=== PATIENT | male | born 1945 | race Caucasian/White ===

== ENCOUNTER 2016-10-15 22:46 | Inpatient (IN) | payer MEDICARE ==
[2016-10-15 23:24] LABS: Basophils % (A) 1 %; CH 33.4; CHCM 33.5; Eosinophils # (A) 0.3 k/uL (0-0.7); Eosinophils % (A) 6 %; HCT 43.9 % (39.0-53.0); HDW 2.32; HGB 14.8 gm/dL (13.0-17.5); Luc # (Auto) 0.11; Luc % (Auto) 2; Lymphocytes # (A) 1.4 k/uL (1.0-4.8); Lymphocytes % (A) 24 %; MCHC 33.8 g/dL (31.0-37.0); MCV 100.4 fL (80.0-100.0); Mean Platelet Volume 7.5; Monocytes # (A) 0.3 k/uL (0-1.0); Monocytes % (A) 6 %; Neutrophils # (A) 3.5 k/uL (1.3-7.7); Neutrophils % (A) 62 %; RBC 4.37 m/uL (4.30-5.90); RDW 13.2 % (11.5-15.5); WBC 5.7 k/uL (3.8-10.6); WBC (Perox) 6.28
[2016-10-15] MEDS ORDERED: DILTIAZEM 125 MG in SODIUM CHLORIDE 0.9% 100 ML IV ONE (23:29)
[2016-10-15 23:32] LABS: ALT 33 U/L (21-72); AST 25 U/L (17-59); Alkaline Phosphatase 66 U/L (38-126); Anion Gap 11 mmol/L; Blood Urea Nitrogen 21 mg/dL (9-20); Carbon Dioxide 27 mmol/L (22-30); Chloride 109 mmol/L (98-107); Glucose 133 mg/dL (74-99); Magnesium 1.8 mg/dL (1.6-2.3); Non-African American GFR(MDRD) 54 (>60 ml/min/1.73 sqM); Potassium 3.9 mmol/L (3.5-5.1); Sodium 147 mmol/L (137-145); Total Bilirubin 0.4 mg/dL (0.2-1.3); Total Protein 6.1 g/dL (6.3-8.2)
--- NOTE | 2016-10-15 23:32 | ED ---
Arrhythmia/Palpitations HPI - General Chief Complaint: Chest Pain Stated Complaint: Constant Belching Time Seen by Provider: 10/15/16 23:03 Source: patient, family Mode of arrival: ambulatory Limitations: no limitations - History of Present Illness Initial Comments: This patient is 71-year-old man who presents to be evaluated for racing heartbeat that came on around 10 PM while he was trying to sleep. The patient states that he noticed that his heart started beating rapidly and he felt like he had belch. He took some soda water which did not change things. When the symptoms persisted he came here to be evaluated. The patient states that he has previous history of atrial fibrillation and this feels very similar. Patient denies yogesh chest pain, diaphoresis, dyspnea, nausea or vomiting. MD Complaint: rapid heart beat Onset/Timin -: minutes(s) Context: occurred during rest Arrhythmia History: atrial fibrillation Associated Symptoms: shortness of breath, other (belching) - Related Data Home Medications Medication Instructions Recorded Confirmed Aloe Vera 5,000 mg PO DAILY 07/21/15 10/15/16 Cholecalciferol [Vitamin D3] 1,000 unit PO DAILY 07/21/15 10/15/16 Flaxseed [Flaxseed Oil] 1,000 mg PO DAILY 07/21/15 10/15/16 Multivitamins, Thera [Multivitamin 1 tab PO DAILY 07/21/15 10/15/16 (formulary)] Decherd-3 Fatty Acids/Fish Oil [Fish 1 cap PO DAILY 07/21/15 10/15/16 Oil 1,000 mg Softgel] Simvastatin 10 mg PO HS 07/21/15 10/15/16 Ubidecarenone [Co Q-10] 100 mg PO DAILY 07/21/15 10/15/16 Previous Rx's Medication Instructions Recorded Apixaban [Eliquis] 5 mg PO BID #0 10/17/16 Atenolol [Tenormin] 50 mg PO HS #0 10/17/16 Allergies Allergy/AdvReac Type Severity Reaction Status Date / Time No Known Allergies Allergy Verified 10/15/16 23:26 Review of Systems ROS Statement: Those systems with pertinent positive or pertinent negative responses have been documented in the HPI. ROS Other: All systems not noted in ROS Statement are negative. Constitutional: Denies: fever, chills, weakness Respiratory: Reports: dyspnea. Denies: cough, wheezes, hemoptysis Cardiovascular: Reports: palpitations. Denies: chest pain, orthopnea, edema, syncope Gastrointestinal: Denies: abdominal pain, nausea, vomiting Genitourinary: Denies: dysuria, hematuria Musculoskeletal: Denies: back pain Skin: Denies: rash Neurological: Denies: headache, weakness, numbness Past Medical History Past Medical History: Atrial Fibrillation, Hyperlipidemia, Hypertension, Osteoarthritis (OA), Skin Disorder Additional Past Medical History / Comment(s): precancerous skin areas removed History of Any Multi-Drug Resistant Organisms: None Reported Past Surgical History: Hernia Repair, Tonsillectomy Additional Past Surgical History / Comment(s): lt nephrectomy r/t noncancerous tumor, cataracts Past Anesthesia/Blood Transfusion Reactions: No Reported Reaction Past Psychological History: No Psychological Hx Reported Smoking Status: Never smoker Past Alcohol Use History: Occasional Past Drug Use History: None Reported - Past Family History Mother Additional Family Medical History / Comment(s): lupus Father Additional Family Medical History / Comment(s): heart problems Daughter(s) Family Medical History: Cancer Additional Family Medical History / Comment(s): lymphoma General Exam Limitations: no limitations General appearance: alert, in no apparent distress Head exam: Present: atraumatic, normocephalic Eye exam: Present: normal appearance. Absent: scleral icterus, conjunctival injection Respiratory exam: Present: normal lung sounds bilaterally. Absent: respiratory distress, wheezes, rales, rhonchi, stridor Cardiovascular Exam: Present: tachycardia, irregular rhythm, normal heart sounds. Absent: systolic murmur, diastolic murmur, rubs, gallop GI/Abdominal exam: Present: soft. Absent: distended, tenderness, guarding, rebound, rigid, mass Extremities exam: Present: normal inspection, normal capillary refill. Absent: pedal edema, calf tenderness Back exam: Present: normal inspection. Absent: CVA tenderness (R), CVA tenderness (L) Neurological exam: Present: alert Skin exam: Present: warm, dry, intact, normal color. Absent: rash Course Vital Signs 10/15/16 10/15/16 10/16/16 22:55 23:19 00:00 Temperature 97.7 F Pulse Rate 110 H Pulse Rate [ 122 H Dental Service Technician ] Respiratory 20 Rate Blood Pressure 149/95 99/64 O2 Sat by Pulse 97 Oximetry 10/16/16 00:25 Temperature Pulse Rate Pulse Rate [ Dental Service Technician ] Respiratory Rate Blood Pressure O2 Sat by Pulse 97 Oximetry EKG Findings - EKG Comments: EKG Findings:: Possible old anterior infarct. - EKG Results: EKG: interpreted by ERMD, normal axis EKG shows: tachycardia (Rate approximately 132 bpm), atrial fibrillation - Blocks, [place], Hypertrophy, ST Abn: Repolarization changes or abnormalities: ST suggestive of injury (There may be mild ST depression and T inversion laterally suggestive of possible ischemia.) Medical Decision Making - Lab Data Result diagrams: 10/15/16 23:13 10/17/16 07:21 Lab Results 10/15/16 10/15/16 10/15/16 Range/Units 23:13 23:13 23:13 WBC 5.7 (3.8-10.6) k/uL RBC 4.37 (4.30-5.90) m/uL Hgb 14.8 (13.0-17.5) gm/dL Hct 43.9 (39.0-53.0) % MCV 100.4 H (80.0-100.0) fL MCH 34.0 (25.0-35.0) pg MCHC 33.8 (31.0-37.0) g/dL RDW 13.2 (11.5-15.5) % Plt Count 194 (150-450) k/uL Neutrophils % 62 % Lymphocytes % 24 % Monocytes % 6 % Eosinophils % 6 % Basophils % 1 % Neutrophils # 3.5 (1.3-7.7) k/uL Lymphocytes # 1.4 (1.0-4.8) k/uL Monocytes # 0.3 (0-1.0) k/uL Eosinophils # 0.3 (0-0.7) k/uL Basophils # 0.0 (0-0.2) k/uL PT (9.0-12.0) sec INR (<1.1) APTT (22.0-30.0) sec D-Dimer (<0.60) mg/L FEU Sodium 147 H (137-145) mmol/L Potassium 3.9 (3.5-5.1) mmol/L Chloride 109 H (98-107) mmol/L Carbon Dioxide 27 (22-30) mmol/L Anion Gap 11 mmol/L BUN 21 H (9-20) mg/dL Creatinine 1.30 H (0.66-1.25) mg/dL Est GFR (MDRD) Af Amer >60 (>60 ml/min/1.73 sqM) Est GFR (MDRD) Non-Af 54 (>60 ml/min/1.73 sqM) Glucose 133 H (74-99) mg/dL Calcium 9.0 (8.4-10.2) mg/dL Magnesium 1.8 (1.6-2.3) mg/dL Total Bilirubin 0.4 (0.2-1.3) mg/dL AST 25 (17-59) U/L ALT 33 (21-72) U/L Alkaline Phosphatase 66 (38-126) U/L Total Creatine Kinase 56 (55-170) U/L CK-MB (CK-2) 1.9 (0.0-2.4) ng/mL CK-MB (CK-2) Rel Index 3.4 Troponin I <0.012 (0.000-0.034) ng/mL NT-Pro-B Natriuret Pep pg/mL Total Protein 6.1 L (6.3-8.2) g/dL Albumin 3.8 (3.5-5.0) g/dL 10/15/16 10/15/16 Range/Units 23:13 23:13 WBC (3.8-10.6) k/uL RBC (4.30-5.90) m/uL Hgb (13.0-17.5) gm/dL Hct (39.0-53.0) % MCV (80.0-100.0) fL MCH (25.0-35.0) pg MCHC (31.0-37.0) g/dL RDW (11.5-15.5) % Plt Count (150-450) k/uL Neutrophils % % Lymphocytes % % Monocytes % % Eosinophils % % Basophils % % Neutrophils # (1.3-7.7) k/uL Lymphocytes # (1.0-4.8) k/uL Monocytes # (0-1.0) k/uL Eosinophils # (0-0.7) k/uL Basophils # (0-0.2) k/uL PT 10.0 (9.0-12.0) sec INR 1.0 (<1.1) APTT 23.5 (22.0-30.0) sec D-Dimer 0.53 (<0.60) mg/L FEU Sodium (137-145) mmol/L Potassium (3.5-5.1) mmol/L Chloride (98-107) mmol/L Carbon Dioxide (22-30) mmol/L Anion Gap mmol/L BUN (9-20) mg/dL Creatinine (0.66-1.25) mg/dL Est GFR (MDRD) Af Amer (>60 ml/min/1.73 sqM) Est GFR (MDRD) Non-Af (>60 ml/min/1.73 sqM) Glucose (74-99) mg/dL Calcium (8.4-10.2) mg/dL Magnesium (1.6-2.3) mg/dL Total Bilirubin (0.2-1.3) mg/dL AST (17-59) U/L ALT (21-72) U/L Alkaline Phosphatase (38-126) U/L Total Creatine Kinase (55-170) U/L CK-MB (CK-2) (0.0-2.4) ng/mL CK-MB (CK-2) Rel Index Troponin I (0.000-0.034) ng/mL NT-Pro-B Natriuret Pep 474 pg/mL Total Protein (6.3-8.2) g/dL Albumin (3.5-5.0) g/dL Critical Care Time Critical Care Time: Yes (35 minutes) Disposition Clinical Impression: Atrial fibrillation with RVR Disposition: ADMITTED IP TO THIS HOSP Condition: Fair
[2016-10-15 23:37] LABS: Partial Thromboplastin Time 23.5 sec (22.0-30.0)
--- NOTE | 2016-10-15 23:39 | XR ---
EXAM: XR Chest, 1 View CLINICAL HISTORY: Reason: chest pain TECHNIQUE: Frontal view of the chest. COMPARISON: No relevant prior studies available. FINDINGS: Lungs: Unremarkable. No consolidation. Pleural space: Unremarkable. No pneumothorax. Heart: Unremarkable. No cardiomegaly. Mediastinum: Unremarkable. Bones/joints: No acute osseous abnormality. Vasculature: Tortuosity and/or ectasia of the thoracic aorta. IMPRESSION: No acute cardiopulmonary process.
[2016-10-15 23:42] LABS: Creatine Kinase 56 U/L (55-170)
[2016-10-15 23:55] LABS: Creatine Kinase MB 1.9 ng/mL (0.0-2.4); Troponin I <0.012 ng/mL (0.000-0.034)
[2016-10-16] MEDS ORDERED: NITROGLYCERIN SL TABS 0.4 MG TAB SUBLINGUAL PRN (00:24)
[2016-10-16 00:59] VITALS: BMI 27.6
[2016-10-16] MEDS: SODIUM CHLORIDE 0.9% 1,000 ML IV SCH ×2 (06:16→16:09)
[2016-10-16 06:39] LABS: Creatine Kinase MB 1.4 ng/mL (0.0-2.4); Troponin I 0.02 ng/mL (0.000-0.034)
[2016-10-16] MEDS ORDERED: NON-FORMULARY DRUG (Ubidecarenone [Co Q-10] 100 MG) PO SCH (09:00)
[2016-10-16] MEDS ORDERED: NON-FORMULARY DRUG (Omega-3 Fatty Acids/Fish Oil [Fish Oil 1,000 Mg Softgel] 1 CAP) PO SCH (09:00)
[2016-10-16] MEDS: MULTIVITAMINS, THERA 1 EACH TAB PO SCH (09:17)
[2016-10-16] MEDS: CHOLECALCIFEROL 1,000 UNIT TAB PO SCH (09:17)
--- NOTE | 2016-10-16 11:33 | CONS ---
DATE OF CONSULTATION: Landen Ceballos is a 71- year-old male patient who started to notice that his heart was beating rapidly yesterday and he felt as if he was going to bel. He tried to drink soda, but it did not help him. He denied any chest discomfort, dizziness, lightheadedness, shortness of breath. His heart was still racing and therefore he came to the hospital. In the hospital, his first 12-lead ECG shows an atrial tachycardia rather than atrial fibrillation with RVR. This has positive P waves in V1 and negative in lead II. This morning, his 12-lead ECG shows a more disorganized rhythm with atrial fibrillation. He is currently on IV Cardizem drip 5 ( ) an hour, his rates are controlled. He normally takes 25 mg of atenolol everyday, I am increasing it to 50 mg a day today. He has past history of hypertension, he is on Zestril; dyslipidemia, he is on simvastatin and a past history of possibly atrial fibrillation with which he is on Eliquis. He takes only 5 mg once daily. He also has one kidney. His GFR is in the mid 50s. He has had a nephrectomy for noncancerous tumor. SOCIAL HISTORY: He is a never smoker. REVIEW OF SYSTEMS: No fever, chills or rigors. No cough or expectoration. No nausea, vomiting, or diarrhea. No hematuria or dysuria. No strokes or seizures. No skin lesions. No musculoskeletal complaints ALLERGIES: No known drug allergies. On examination, his blood pressure is 120/88 mmHg, heart rate is in the 60s and 70s, irregular, afebrile, 97.1 degrees Fahrenheit. Head and neck examination is normal. No JVD, thyromegaly, or carotid bruits. Heart sounds S1, S2 are normal, but irregular. There is no murmur, no gallops. Abdomen is soft, nontender. Breath sounds are clear. No rhonchi. No crackles. Extremities are warm. IMPRESSION: 1. Atrial tachycardia with upright atrial electrograms in V1 and negative in lead II. 2. Atrial tachycardia degenerated into atrial fibrillation today. 3. Hypertension, on Zestril. 4. Dyslipidemia, on simvastatin. SUGGEST: Increase atenolol to 50 mg p.o. daily, increase Eliquis to 5 mg twice daily. He has had a history of nephrectomy. His GFR is in the mid 50s. I have asked him to increase Eliquis to 5 mg p.o. b.i.d. I did discuss medical treatment versus radiofrequency ablation with him. I will rate control him and continue anticoagulation. I would like to observe him overnight until tomorrow to make sure that he is tolerating 50 mg of atenolol with adequate rate control before we discharge him. He is leaving town on Tuesday to go to his grandson's graduation. I will see him again in the office and I will schedule his outpatient appointment.
[2016-10-16 12:25] LABS: Creatine Kinase MB 1.2 ng/mL (0.0-2.4); Troponin I 0.018 ng/mL (0.000-0.034)
[2016-10-16] MEDS: ATENOLOL 50 MG TAB PO SCH (12:30)
--- NOTE | 2016-10-16 20:32 | HP ---
Patient is a 71-year-old who came in because of symptoms of dizziness, lightheadedness, found to be in atrial fibrillation. Patient was subsequently admitted here. Patient has known history of A. fib. with RVR. Patient was on atenolol. Patient was started on Cardizem drip, which was discontinued. Patient is on beta lamont, the dose of which is being increased. Patient's baseline creatinine is unknown, but his creatinine is elevated to 1.3. Patient denied any fevers, chills. Patient denied any nausea, vomiting, diarrhea. I am unable to find any precipitating factors for his atrial fibrillation. Anyway, Cardiology evaluated the patient. I do not know his ejection fraction. Home medications include: 1. Levaquin. 2. Simvastatin. 3. Multivitamin. 4. Lisinopril. 5. Cholecalciferol. 6. Atenolol 25 p.o. bedtime, which is being increased to twice a day. 7. Apixaban 5 mg p.o. bedtime, which is being increased to 5 mg p.o. b.i.d. and 8. Aloe vera. PAST MEDICAL HISTORY: Significant for atrial fibrillation, hypertension, hyperlipidemia, osteoarthritis, hernia repair, tonsillectomy. SOCIAL HISTORY: Denied any smoking, alcohol abuse or any drug abuse. FAMILY HISTORY: Significant for cancer and lymphoma. PHYSICAL EXAMINATION: VITAL SIGNS: Temperature 97.0, pulse of 61, blood pressure is 115/79, saturating at 97% on room air. GENERAL: The patient is alert and oriented x3, not in any acute distress. Well developed, well nourished. HEENT: Pupils are round and equally reacting to light. EOMI. No scleral icterus. No conjunctival pallor. Normocephalic, atraumatic. No pharyngeal erythema. No thyromegaly. CARDIOVASCULAR: S1 and S2 present. No murmurs, rubs, or gallops. PULMONARY: Chest is clear to auscultation, no wheezing or crackles. ABDOMEN: Soft, nontender, nondistended, normoactive bowel sounds. No palpable organomegaly. MUSCULOSKELETAL: No joint swelling or deformity. EXTREMITIES: No cyanosis, clubbing, or pedal edema. NEUROLOGICAL: Gross neurological examination did not reveal any focal deficits. SKIN: No rashes. LABORATORY DATA: CBC, CMP are abnormal for elevated sodium of 147 secondary to IV fluids, BUN of 21, creatinine of 1.3. ASSESSMENT AND PLAN: 1. Atrial fibrillation with rapid ventricular rate. Patient is in sinus rhythm at this point of time. Continue with increased dose of atenolol and Cardiology is recommending monitoring overnight and Eliquis dose was increased to 5 mg p.o. b.i.d. Atenolol is increased to 50 mg p.o. daily. 2. Hypertension on Zestril. As atenolol dose was increased and I am not sure whether patient has acute renal failure or not, because of that reason, I am discontinuing lisinopril and will watch him and patient is not really diabetic. 3. Possible chronic kidney disease stage 2 to 3 from hypertensive nephrosclerosis. Will hold off on Zestril and see if it improves. 4. Dyslipidemia. 5. Osteoarthritis. 6. For above-mentioned chronic medical problems, I will go ahead and continue his home medications.
[2016-10-16] MEDS ORDERED: ATENOLOL 25 MG TAB PO SCH (21:00)
[2016-10-16] MEDS ORDERED: LISINOPRIL 10 MG TAB PO SCH (21:00)
[2016-10-16] MEDS ORDERED: ATORVASTATIN 10 MG TAB PO SCH (21:00)
[2016-10-16] MEDS ORDERED: APIXABAN 5 MG TAB PO SCH (21:00)
[2016-10-16] MEDS: APIXABAN 5 MG TAB PO SCH (21:45)
[2016-10-17 07:51] LABS: Anion Gap 8 mmol/L; Blood Urea Nitrogen 20 mg/dL (9-20); Calcium 9.1 mg/dL (8.4-10.2); Carbon Dioxide 23 mmol/L (22-30); Chloride 112 mmol/L (98-107); Cholesterol 148 mg/dL (<200); Glucose 90 mg/dL (74-99); HDL Cholesterol 53 mg/dL (40-60); Non-African American GFR(MDRD) >60 (>60 ml/min/1.73 sqM); Potassium 4.3 mmol/L (3.5-5.1); Sodium 143 mmol/L (137-145); Triglycerides 87 mg/dL (<150)
[2016-10-17] MEDS: APIXABAN 5 MG TAB PO SCH (08:56)
[2016-10-17] MEDS: ATENOLOL 50 MG TAB PO SCH (08:56)
[2016-10-17] MEDS: MULTIVITAMINS, THERA 1 EACH TAB PO SCH (08:56)
[2016-10-17] MEDS: CHOLECALCIFEROL 1,000 UNIT TAB PO SCH (08:56)
[2016-10-17] MEDS ORDERED: ASPIRIN 325 MG TAB PO SCH (09:00)
[2016-10-17 09:08] VITALS: RESP 18
--- NOTE | 2016-10-17 11:34 | PN ---
He is doing well from a cardiac standpoint. He converted to sinus rhythm; however, during the conversion, he first had AIVR and then converted to ( ). He did not complain of any syncope. Vital signs stable today. He is afebrile 97.5 degrees Fahrenheit. Pulse rate in the 60s, irregular, is in sinus rhythm. Blood pressure 130/83 mmHg. Head and neck examination is normal. Heart sounds S1, S2 are normal. LUNGS: Clear to auscultation. EXTREMITIES: Warm. No edema. IMPRESSION: 1. Atrial tachycardia. 2. Atrial fibrillation. 3. Hypertension. 4. Dyslipidemia. 5. AIVR at the time of conversion. No evidence of sick sinus syndrome thereafter. SUGGEST: He may go home today. Eliquis 5 mg twice daily and atenolol 50 daily. I will see him in the outpatient.
[2016-10-17 12:04] VITALS: BP 142/87; PULSE 56; TEMP 96.9
--- NOTE | 2016-10-18 13:53 | DS ---
DATE OF ADMISSION: 10/16/2016 DATE OF DISCHARGE: 10/17/2016 Patient is a 71-year-old admitted and was treated for atrial fibrillation with rapid ventricular rate, beta lamont dose was increased and other antihypertensives were discontinued and patient is being discharged today in stable medical condition to home. Patient's Eliquis was changed to 5 b.i.d. The patient was seen and examined on the day of discharge. Vital signs are stable. PHYSICAL EXAMINATION: GENERAL: The patient is alert and oriented x3, not in any acute distress. Well developed, well nourished. HEENT: Pupils are round and equally reacting to light. EOMI. No scleral icterus. No conjunctival pallor. Normocephalic, atraumatic. No pharyngeal erythema. No thyromegaly. CARDIOVASCULAR: S1 and S2 present. No murmurs, rubs, or gallops. PULMONARY: Chest is clear to auscultation, no wheezing or crackles. ABDOMEN: Soft, nontender, nondistended, normoactive bowel sounds. No palpable organomegaly. MUSCULOSKELETAL: No joint swelling or deformity. EXTREMITIES: No cyanosis, clubbing, or pedal edema. NEUROLOGICAL: Gross neurological examination did not reveal any focal deficits. SKIN: No rashes. FINAL DIAGNOSIS(ES): 1. Atrial fibrillation, presently rate -controlled. 2. Hypertension was on Zestril. Atenolol dose is being increased, Zestril was discontinued and patient was also close to hypotensive and had renal dysfunction which is acute kidney injury 3. Prerenal azotemia possibly due to the Zestril, which was discontinued. 4. The patient has improvement in creatinine and patient may have some chronic kidney disease stage II, probably her chronic kidney disease stage II from hypertension. 5. Dyslipidemia. 6. Osteoarthritis. Patient being discharged today. Please refer to my depart summary for further details of discharge medication. Patient will follow with Dr. Ted Alba in 3 to 7 days. Cardiology as scheduled. Activity as tolerated. Cardiac diet. Spent greater than 35 minutes in total discharge process.
== END 2016-10-17 15:30 | disposition home or self-care (01) | DRG 309 ==
LOC: EC 22:46 → 6SEL 10-16 00:25
PROVIDERS: ADMIT Internal Medicine; ATTEND Internal Medicine
DX: I48.91 Unspecified atrial fibrillation (principal); N17.9 Acute kidney failure, unspecified; E78.5 Hyperlipidemia, unspecified; I47.1 Supraventricular tachycardia; M19.90 Unspecified osteoarthritis, unspecified site; Z79.01 Long term (current) use of anticoagulants; Z79.899 Other long term (current) drug therapy; Z90.5 Acquired absence of kidney; I12.9 Hypertensive chronic kidney disease with stage 1 through stage 4 chronic kidney disease, or unspecified chronic kidney disease; N18.2 Chronic kidney disease, stage 2 (mild)
CPT/HCPCS: 36415; 71010; 80048; 80053; 80061; 82550; 82553; 83735; 83880; 84443; 84484; 85025; 85379; 85610; 85730; 93005; 96365; 99285

== ENCOUNTER → 2017-01-13 | Outpatient (CLI) | payer MEDICARE ==
--- NOTE | 2017-01-14 09:23 | CONS ---
DATE OF SERVICE: 01/13/2017 A 71-year-old gentleman who has been evaluated to [facility] for possible obstructive sleep apnea-hypopnea syndrome. HISTORY OF PRESENT ILLNESS/SLEEP WAKE EVALUATION: SLEEP SCHEDULE: Patients usual sleep schedule from around 10:00 p.m. to 5:30 or 6:30 a.m. FALLING ASLEEP: He does not have any problem with falling asleep. No TV in bedroom. DURING SLEEP: He sleeps usually on the back position. He sleeps with his and according to her he snores and has episodes of stopped breathing and snorting during the sleep. He wakes up from sleep two times without nocturia. DURING THE DAY/WAKE STATE: During the day he may feel sleepiness and irritability. [place] sleepiness scale is 5. He may take one nap in the evening time. PAST MEDICAL HISTORY: Positive for atrial fibrillation, hypertension, hyperlipidemia. PAST SURGICAL HISTORY: Left kidney removed for benign tumor, status post left shoulder surgery for rotator cuff. MEDICATIONS: Simvastatin, metoprolol, lisinopril, Eliquis. SOCIAL HISTORY: Negative for smoking. Alcohol consumption occasional. REVIEW OF SYSTEMS: Sometimes awakenings from sleep. No fevers No double vision. No recent chest pain. No shortness of breath. No abdominal pain. No bleeding episodes. No blood in urine. No seizure episodes. FAMILY HISTORY: Hypertension, heart problems, strokes, snoring, acid reflux. PHYSICAL EXAMINATION: GENERAL: A gentleman without any distress. VITAL SIGNS: BP 116/71, HR 64, RR 16, height 5 foot 10, weight 205, body mass index 29.4, neck 15-3/4 inches in circumference, temperature 98.1, oxygen saturation on room air 98%. HEENT: PERRLA, EOMI. Evaluation of oropharynx showed moderate low position of soft palate. Short distance between soft palate and posterior pharyngeal wall. NECK: Supple. No JVD. Thyroid is not palpable. LUNGS: clear to percussion and to auscultation. Good air exchange. No wheezing or rhonchi. HEART: S1, S2 regular. No murmurs, gallops or rubs. ABDOMEN: Soft and nontender. Bowel sounds are present. No organomegaly appreciated. EXTREMITIES: No cyanosis or clubbing. 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 Cranial nerves II through VII intact. There is no fasciculation or atrophy noted. No focal deficits observed. IMPRESSION: 1. Snoring, witnessed episodes of stopped breathing during the sleep, moderately low position of soft palate, short distance between soft palate and posterior pharyngeal wall, obstructive sleep apnea-hypopnea syndrome. 2. History of atrial fibrillation. 3. Hypertension. 4. Hyperlipidemia. 5. Status post left nephrectomy for benign tumor. 6. Status post left shoulder surgery. PLAN: 1. Polysomnography for evaluation of patients breathing during sleep. 2. CPAP/BiPAP titration if sleep study confirms obstructive sleep apnea- hypopnea syndrome. 3. Preferable position during sleep on the side. 4. No driving if patient feels any sleepiness. Patient is aware of civil and criminal liability for unsafe driving. 5. I will see the patient for follow-up visit to explain results of the testing and following plan. Thank you very much for allowing me to participate in the management of your patient. Sincerely, Iker Lo MD, PhD, FAASM Diplomat of [place] [employer], Sleep Medicine Board by [place] [employer] [place] [employer] Advertising Designer of [facility]
== END ==
LOC: SLEEP 15:12
PROVIDERS: ATTEND Internal Medicine
DX: G47.33 Obstructive sleep apnea (adult) (pediatric) (principal); I10 Essential (primary) hypertension; I48.91 Unspecified atrial fibrillation; E78.5 Hyperlipidemia, unspecified; Z98.890 Other specified postprocedural states; Z90.5 Acquired absence of kidney; Z79.899 Other long term (current) drug therapy
CPT/HCPCS: 99211

== ENCOUNTER 2017-02-21 06:06 | Day surgery (SDC) | payer MEDICARE ==
[2017-02-17 12:33] VITALS: BMI 27.8
[2017-02-21] MEDS ORDERED: ONDANSETRON 4 MG/2 ML VIAL IVP ONE (06:08)
[2017-02-21] MEDS ORDERED: MIDAZOLAM 2 MG/2 ML VIAL IV PRN (06:08)
[2017-02-21] MEDS ORDERED: HYDROmorphone 0.5 MG/0.5 ML SYRINGE IVP PRN (06:08)
[2017-02-21] MEDS: SODIUM CHLORIDE 0.9% 1,000 ML IV SCH (06:35)
[2017-02-21 07:22] LABS: Basophils % (A) 1 %; CH 32.7; CHCM 32.9; Eosinophils # (A) 0.2 k/uL (0-0.7); Eosinophils % (A) 3 %; HCT 45.5 % (39.0-53.0); HDW 2.33; HGB 15.3 gm/dL (13.0-17.5); Luc # (Auto) 0.14; Luc % (Auto) 2; Lymphocytes # (A) 1.3 k/uL (1.0-4.8); Lymphocytes % (A) 22 %; MCH 33.6 pg (25.0-35.0); MCHC 33.7 g/dL (31.0-37.0); MCV 99.8 fL (80.0-100.0); Mean Platelet Volume 7.8; Monocytes # (A) 0.5 k/uL (0-1.0); Monocytes % (A) 8 %; Neutrophils % (A) 65 %; RBC 4.56 m/uL (4.30-5.90); RDW 12.8 % (11.5-15.5); WBC 6.1 k/uL (3.8-10.6); WBC (Perox) 5.99
[2017-02-21 07:31] LABS: Anion Gap 11 mmol/L; Blood Urea Nitrogen 23 mg/dL (9-20); Carbon Dioxide 21 mmol/L (22-30); Chloride 112 mmol/L (98-107); Glucose 94 mg/dL (74-99); Non-African American GFR(MDRD) 50 (>60 ml/min/1.73 sqM); Sodium 144 mmol/L (137-145)
[2017-02-21] MEDS ORDERED: DEXAMETHASONE SOD PHOS (MDV) 100 MG/10 ML VIAL ONE (07:31)
[2017-02-21] MEDS ORDERED: HEPARIN SODIUM,PORCINE 10,000 UNIT/ML 1 ML VIAL ONE (07:31)
[2017-02-21] MEDS ORDERED: MIDAZOLAM 2 MG/2 ML VIAL ONE (07:31)
[2017-02-21] MEDS ORDERED: NEOSTIGMINE 1 MG/ML 10 ML VIAL ONE (07:31)
[2017-02-21] MEDS ORDERED: PHENYLEPHRINE-0.9% NACL SYG 1 MG/10 ML SYRINGE ONE (07:31)
[2017-02-21] MEDS ORDERED: LIDOCAINE 1% INJ 10MG/ML (20 ML MDV) ONE (07:31)
[2017-02-21] MEDS ORDERED: PROTAMINE SULFATE 10 MG/ML 5 ML VIAL IV ONE (07:31)
[2017-02-21] MEDS ORDERED: ROCURONIUM BROMIDE 10 MG/ML 10 ML VIAL IV ONE (07:31)
[2017-02-21] MEDS ORDERED: PROPOFOL 10 MG/ML 20 ML VIAL IV ONE (07:31)
[2017-02-21] MEDS ORDERED: fentaNYL (PF) 50 MCG/ML 2 ML AMP ONE (07:31)
[2017-02-21] MEDS ORDERED: HEPARIN SODIUM,PORCINE 5,000 UNIT/ML 1 ML VIAL ONE (07:31)
[2017-02-21] MEDS ORDERED: SUCCINYLCHOLINE CHLORIDE 100 MG/5 ML SYR IV ONE (07:31)
[2017-02-21] MEDS ORDERED: GLYCOPYRROLATE 0.2 MG/ML 2 ML VIAL ONE (07:31)
[2017-02-21] MEDS ORDERED: LIDOCAINE 2% INJ 20 MG/ML SQ ONE ×2 (08:42→08:44)
[2017-02-21] MEDS ORDERED: HEPARIN SODIUM,PORCINE/D5W PMX 25,000 UNIT in DEXTROSE/WATER 1 500ML.BAG IV ONE (08:43)
[2017-02-21] MEDS ORDERED: HEPARIN SODIUM (1,000 UNIT/ML) 1,000 UNIT in SODIUM CHLORIDE 0.9% 1,000 ML IRRIGATION ONE ×5 (08:44→11:40)
[2017-02-21] MEDS ORDERED: LACTATED RINGERS 1,000 ML IV ONE ×3 (11:45→14:50)
--- NOTE | 2017-02-21 13:08 | P.PCN ---
Preoperative Diagnosis: Impression Paroxysmal symptomatic atrial fibrillation, recurrent on meds Status post sleep apnea Hypertension Dyslipidemia Patient was in atrial fibrillation at the start of the study. Prior to catheter placement he went into sinus rhythm spontaneously Status post successful A. fib ablation with 1. Antral level isolation of all 4 pulmonary veins with demonstrated entrance and exit block 2. Linear ablation in the mid posterior wall of the LAD joining the antral lines (20 mm distance back closed Procedures performed Percutaneous arterial catheterization/cannulation for sampling and monitoring, ACT maintained above 300 Comprehensive diagnostic EP study with attempted arrhythmia induction Coronary sinus pacing and recording Drug stimulation, EPS with Isuprel infusion Intracardiac echocardiography Left and right transseptal catheterization 3-D mapping of the left atrium and the pulmonary veins Pulmonary vein isolation, [id number] Linear A. fib / LA ablation, [id number] Diagnostic radiologic examination of the esophagus at the end of the procedure Result Entrance and exit block demonstrated normal for pulmonary veins as well as the posterior wall. There was a roof line as well as made posterior wall LA which also demonstrated exit block with pacing Anesthesia: GETA Condition: stable
[2017-02-21] MEDS ORDERED: ACETAMINOPHEN TAB 325 MG TAB PO PRN (14:00)
[2017-02-21] MEDS ORDERED: HYDROcodone/APAP 5-325MG 1 EACH TAB PO PRN (14:00)
[2017-02-21] MEDS ORDERED: FUROSEMIDE 10 MG/ML 4 ML VIAL IV STA (14:03)
--- NOTE | 2017-02-21 14:26 | LTR ---
DATE OF SERVICE: 02/21/[address] Alba: I had the pleasure of seeing Mr. Landen Ceballos in electrophysiology followup. Landen underwent successful atrial fibrillation ablation with antral isolation of pulmonary veins as well as isolation of the posterior LA wall. Initially when he came in he was in atrial fibrillation but he spontaneously converted before the electrophysiologic catheters were placed in the heart. Therefore he has paroxysmal atrial fibrillation. All his veins are completely isolated. Hopefully this results in a significant reduction in his atrial fibrillation burden. I will reduce the dose of atenolol to 25 mg p.o. daily and he will continue anticoagulation lifelong. If you have any questions, please do not hesitate to give me a call. Sincerely yours, MMODL / IJN: [id number] /
--- NOTE | 2017-02-21 14:26 | CE ---
CARDIAC ELECTROPHYSIOLOGY REPORT 71-year-old, male patient paroxysmal atrial fibrillation, recurrent despite drug therapy and symptomatic. He is brought in for an atrial fibrillation ablation. Some physioelectrograms suggested atrial flutter but on close inspection, the cycle length is very short and suggested atrial fibrillation rather than atrial tachycardia with variability and electrograms. Patient brought to the EP lab in a fasting state. Written informed consent was obtained prior to the procedure. The procedure was performed under general anesthesia. An esophageal probe (Circa) was placed in the esophagus later after OG tube was placed and later an OG tube was also placed for barium instillation. Right had left groins were prepped and draped as per protocol. Venous sheaths were placed in the right and left femoral veins. A total of three venous sheaths placed. A femoral arterial catheter was also placed in the left femoral artery for hemodynamically monitoring and sampling. Patient's blood pressure was in between 80- 100 mmHg throughout the procedure. He required pressor support. There was no evidence for any pericardial fluid either at baseline, during the procedure or even at the end of the procedure, and this was documented. Intracardiac echocardiography was first performed. There was no left atrial and right atrial thrombi noted. No left atrial appendage thrombus noted. The procedure was placement of the coronary sinus catheter. Please note the patient initially came in atrial fibrillation, but after general anesthesia, he actually spontaneously went to sinus rhythm. High right atrial catheter was placed. The catheters were placed in the HIS bundle AV node are and the right ventricle. VA Wenckebach block was greater than 600 milliseconds and AV node Wenckebach block 460 milliseconds. Sinus node recovery times of 600, 500 and 400 milliseconds were 978, 994 and 862 milliseconds. Corresponding corrected sinus node recovery times were within normal limits. Atrial extra stimulation was performed from the coronary sinus. An atrial ERP was 600/[address]-T was induced. High-dose Isuprel was also used. Burst stimulation was performed from the coronary sinus. From 400 millisecond down to 300 milliseconds. No atrial fibrillation induced. AV node Wenckebach block 320 milliseconds, atrial ERP was 600/290 milliseconds. Right and left transeptal catheterization was performed. RA pressure 16 x 15 x 16 mm and LA pressure 21 x 5 x 14 mm. Baseline measurements were as follows: Sinus cycle length 831 millisecond. CO interval 195 milliseconds, QRS 108 milliseconds, QT 442 milliseconds. AH interval 88 milliseconds. HV interval 37 milliseconds. 3D anatomic mapping using intracardiac echo, and Carto mapping was performed. Electro anatomic mapping was performed. The pulmonary veins identified. Mitral annulus was identified. Left atrial appendage was tagged and identified. The groove in the posterior wall was mapped. Antral isolation of the right-sided pulmonary veins was performed. Antral isolation of the left-sided pulmonary veins was performed. The superior portions of the pulmonary veins were somewhat difficult to get good contact and the posterior wall was only 20 mm in width. Therefore posterior RF line was also made to connect the 2 antral lines posteriorly and the lines were joined and the roof line up in the posterior roof. This required esophageal deflection, esophagus was closed, both the right and the left veins posteriorly and the esophagus was effectively displaced and a complete ablation was performed. At the end of the procedure there was entrance block and exit block in all 4 veins. Pacing within the posterior left atrium that was bounded by the superior-inferior RF line also showed exit block. The patient tolerated the procedure well without any acute complications. At the end of the procedure: 1. There was no evidence of pericardial effusion. 2. Barium esophagram was performed. Radiologic evaluation of the esophagus after completion of the procedure showed absence of any esophageal perforation. 3. The esophagus was extubated and the barium was completely removed and suctioned out from the esophagus as well as the posterior oropharynx and oropharynx was cleaned. 4. The patient was extubated and transferred to the recovery room. RESULT: 1. Diagnostic EP study revealing normal sinus node function, normal AV node function, absence of any supraventricular tachycardia or excessive pathway conduction or slow pathway conduction. 2. Successful antral isolation of all 4 pulmonary veins and ablation of the posterior LA wall with the superior-inferior RF linea ablation demonstrated entrance and exit block in all ablated areas. The patient tolerate the procedure well without any acute complications. MMODL / IJN: [id number] /
[2017-02-21] MEDS: ACETAMINOPHEN IV (For NPO) 1,000 MG in EMPTY BAG 1 BAG IVPB ONE ×2 (14:50→15:05)
[2017-02-21] MEDS: LACTATED RINGERS 1,000 ML IV SCH (17:43)
[2017-02-21] MEDS ORDERED: ATORVASTATIN 10 MG TAB PO SCH (21:00)
[2017-02-21] MEDS: FAMOTIDINE 20 MG TAB PO SCH (21:26)
[2017-02-21] MEDS: COLCHICINE 0.6 MG TAB PO SCH (21:26)
[2017-02-21] MEDS: APIXABAN 5 MG TAB PO SCH (21:26)
[2017-02-21] MEDS: METOPROLOL TARTRATE 25 MG TAB PO SCH (21:26)
[2017-02-22] MEDS: LACTATED RINGERS 1,000 ML IV SCH (05:44)
[2017-02-22] MEDS: SODIUM CHLORIDE 0.9% 1,000 ML IV SCH (05:44)
[2017-02-22] MEDS ORDERED: LISINOPRIL 10 MG TAB PO SCH (09:00)
[2017-02-22] MEDS: COLCHICINE 0.6 MG TAB PO SCH (09:01)
[2017-02-22] MEDS: FAMOTIDINE 20 MG TAB PO SCH (09:01)
[2017-02-22] MEDS: APIXABAN 5 MG TAB PO SCH (09:01)
[2017-02-22] MEDS: METOPROLOL TARTRATE 25 MG TAB PO SCH (09:01)
[2017-02-22] MEDS ORDERED: TAMSULOSIN 0.4 MG CAP.ER.24H PO STA (12:11)
--- NOTE | 2017-02-22 12:22 | P.DS ---
Providers Attending physician: Adan Jauregui Primary care physician: Arron Jones [facility] Course: Patient is doing well. He is ablated in the hallways. His throat feels much better this morning. No chest pain no shortness of breath no dizziness or lightheadedness. He had breakfast and is eating lunch now. Breath sounds are clear no rhonchi no crackles. Heart sounds are normal normal S1 normal S2. Abdomen soft nontender. 70s warm no edema. Groins of healed well no hematoma no bruising or bleeding He has not been able to void this morning and he has residual urine volume of about 700+ mL I will give him a single dose of Flomax to see if that helps otherwise we'll have to straight cath him Vitals are stable, pulse rate in the 60s and 70s, afebrile 98.1F, normal respirations, blood pressure 103/55 mmHg Impression Atrial fibrillation, paroxysmal Status post antral isolation of the pulmonary veins with demonstrated entrance and exit block Essential hypertension Dyslipidemia Obstructive sleep apnea Plan Discharge home by 6 PM if groin is healed well without any bleeding issues, if patient has voided. He will continue ELIQUIS 5 g twice daily along with simvastatin and metoprolol and lisinopril and I will see him later this week and arrange for his follow-up appointments Patient Condition at Discharge: Stable Plan - Discharge Summary New Discharge Prescriptions: No Action Flaxseed [Flaxseed Oil] 1,000 mg PO DAILY Ubidecarenone [Co Q-10] 200 mg PO DAILY Cholecalciferol [Vitamin D3] 1,000 unit PO DAILY Aloe Vera 5,000 mg PO DAILY [place]-3 Fatty Acids/Fish Oil [Fish Oil 1,000 mg Softgel] 1 cap PO DAILY Multivitamins, Thera [Multivitamin (formulary)] 1 tab PO DAILY Simvastatin 10 mg PO HS Apixaban [Eliquis] 5 mg PO BID #0 Cyanocobalamin (Vitamin B-12) [Vitamin B-12] 5,000 mcg PO DAILY Cholecalciferol [Vitamin D3] 5,000 unit PO DAILY Metoprolol Tartrate [Lopressor] 25 mg PO BID Lisinopril [Zestril] 10 mg PO DAILY [place] (Unknown Dose) 1 tab PO DAILY Alpha Lipoic Acid 300 mg PO DAILY Discharge Medication List Aloe Vera 5,000 mg PO DAILY 07/21/15 [History] Cholecalciferol [Vitamin D3] 1,000 unit PO DAILY 07/21/15 [History] Flaxseed [Flaxseed Oil] 1,000 mg PO DAILY 07/21/15 [History] Multivitamins, Thera [Multivitamin (formulary)] 1 tab PO DAILY 07/21/15 [History ] [place]-3 Fatty Acids/Fish Oil [Fish Oil 1,000 mg Softgel] 1 cap PO DAILY [History] Simvastatin 10 mg PO HS 07/21/15 [History] Ubidecarenone [Co Q-10] 200 mg PO DAILY 07/21/15 [History] Apixaban [Eliquis] 5 mg PO BID #0 10/17/16 [Rx] Alpha Lipoic Acid 300 mg PO DAILY 02/17/17 [History] Cholecalciferol [Vitamin D3] 5,000 unit PO DAILY 02/17/17 [History] Cyanocobalamin (Vitamin B-12) [Vitamin B-12] 5,000 mcg PO DAILY 02/17/17 [ History] Lisinopril [Zestril] 10 mg PO DAILY 02/17/17 [History] Metoprolol Tartrate [Lopressor] 25 mg PO BID 02/17/17 [History] [place] (Unknown Dose) 1 tab PO DAILY 02/17/17 [History] Follow up Appointment(s)/Referral(s): Adan Jauregui MD [STAFF PHYSICIAN] - 1 Week Patient Instructions/Handouts: Cardiac Ablation (DC) Activity/Diet/Wound Care/Special Instructions: Post EP study - Ablation instructions 1. Keep access sites dry for 2 days. 2. No heavy lifting or straining for 2 days. 3. Avoid bending the hips repeatedly for 2 days. 4. You may go up and down stairs slowly Call if the following is noted 1. Bleeding, increasing swelling or pain at the access sites. 2. Increasing chest discomfort, especially upon taking a deep breath. 3. Increasing shortness of breath, at rest or with exertion. 4. Undue cough / phlegm 5. Difficulty or pain while swallowing. 6. Pain or change in color in the extremities. 7. Fever, chills, rigors. 8. Increasing headache or neurologic symptoms. 9. Dizziness, fainting, palpitations Discharge Disposition: HOME SELF-CARE
[2017-02-22 14:53] VITALS: RESP 18
[2017-02-22 18:29] VITALS: BP 116/67; PULSE 77; TEMP 97.5
== END 2017-02-22 18:35 | disposition home or self-care (01) ==
LOC: CATHEP 06:06 → 6SEL 12:47 → CATHEP 02-22 18:35
PROVIDERS: ATTEND Internal Medicine Clinical Cardiac Electrophysiology
DX: I48.0 Paroxysmal atrial fibrillation (principal); Z79.01 Long term (current) use of anticoagulants; I47.1 Supraventricular tachycardia; I10 Essential (primary) hypertension; E78.2 Mixed hyperlipidemia; G47.33 Obstructive sleep apnea (adult) (pediatric); Z79.899 Other long term (current) drug therapy
CPT/HCPCS: 93623; 93662; 93613; 93656; 93657; 80048; 85025; C1894 ×3; C1769 ×5; C1893; C1759; C1732; J2001 ×2; J2250; J2720; J1644 ×4; J1940; J2710; J3010; J1100; J0131; J2370; J0330; J2704

== ENCOUNTER 2017-02-28 01:15 | Inpatient (IN) | payer MEDICARE ==
[2017-02-28] MEDS ORDERED: DILTIAZEM 125 MG in SODIUM CHLORIDE 0.9% 100 ML IV STA (01:47)
--- NOTE | 2017-02-28 01:59 | ED ---
General Adult HPI - General Chief complaint: Recheck/Abnormal Lab/Rx Stated complaint: Sweating/SOB Time Seen by Provider: 02/28/17 01:32 Source: patient Mode of arrival: ambulatory Limitations: no limitations - History of Present Illness Initial comments: This patient is a 71-year-old man who presents to be evaluated for having a clammy feeling area the patient states she was in his usual state of health until tonight when he tried to go to bed. He states when he was lying down he would feel like he was getting sweaty. He states there may have been a little shortness of breath. Patient denies chest pain. He is not certain if there were any palpitations. He does relate that he did recently have an atrial fibrillation ablation with Dr. Jauregui, the patient states that he was told that the result was very good. Patient denies having any symptoms following the ablation up until tonight. On arrival, patient states that the symptoms have been intermittent, seems a little worse if he is lying flat. He denies any pain. He is not having nausea or vomiting. Onset/Timin -: hour(s) Consistency: intermittent Improves with: none Worsens with: other (Spine) Associated Symptoms: diaphoresis Treatments Prior to Arrival: none - Related Data Home Medications Medication Instructions Recorded Confirmed Aloe Vera 5,000 mg PO DAILY 07/21/15 02/21/17 Cholecalciferol [Vitamin D3] 1,000 unit PO DAILY 07/21/15 02/21/17 Flaxseed [Flaxseed Oil] 1,000 mg PO DAILY 07/21/15 02/21/17 Multivitamins, Thera [Multivitamin 1 tab PO DAILY 07/21/15 02/21/17 (formulary)] [place]-3 Fatty Acids/Fish Oil [Fish 1 cap PO DAILY 07/21/15 02/21/17 Oil 1,000 mg Softgel] Simvastatin 10 mg PO HS 07/21/15 02/21/17 Ubidecarenone [Co Q-10] 200 mg PO DAILY 07/21/15 02/21/17 Alpha Lipoic Acid 300 mg PO DAILY 02/17/17 02/21/17 Cholecalciferol [Vitamin D3] 5,000 unit PO DAILY 02/17/17 02/21/17 Cyanocobalamin (Vitamin B-12) 5,000 mcg PO DAILY 02/17/17 02/21/17 [Vitamin B-12] Lisinopril [Zestril] 10 mg PO DAILY 02/17/17 02/21/17 Metoprolol Tartrate [Lopressor] 25 mg PO BID 02/17/17 02/21/17 Alej[place] Reyn[place] (Unknown Dose) 1 tab PO DAILY 02/17/17 Previous Rx's Medication Instructions Recorded Apixaban [Eliquis] 5 mg PO BID #0 10/17/16 Allergies Allergy/AdvReac Type Severity Reaction Status Date / Time No Known Allergies Allergy Verified 02/28/17 01:19 Review of Systems ROS Statement: Those systems with pertinent positive or pertinent negative responses have been documented in the HPI. ROS Other: All systems not noted in ROS Statement are negative. Constitutional: Denies: fever, chills, weakness Respiratory: Reports: as per HPI, dyspnea. Denies: cough Cardiovascular: Reports: palpitations. Denies: chest pain, dyspnea on exertion , orthopnea, edema, syncope Gastrointestinal: Denies: abdominal pain, nausea, vomiting, melena, hematochezia Genitourinary: Denies: dysuria, hematuria Musculoskeletal: Denies: back pain Skin: Denies: rash Neurological: Denies: weakness, numbness, paresthesias Past Medical History Past Medical History: Atrial Fibrillation, Hyperlipidemia, Hypertension, Osteoarthritis (OA), Skin Disorder Additional Past Medical History / Comment(s): precancerous skin areas removed History of Any Multi-Drug Resistant Organisms: None Reported Past Surgical History: Ablation, Hernia Repair, Tonsillectomy Additional Past Surgical History / Comment(s): lt nephrectomy r/t noncancerous tumor, cataracts Past Anesthesia/Blood Transfusion Reactions: No Reported Reaction Past Psychological History: No Psychological Hx Reported Smoking Status: Never smoker Past Alcohol Use History: Occasional Past Drug Use History: None Reported - Past Family History Mother Additional Family Medical History / Comment(s): lupus Father Additional Family Medical History / Comment(s): heart problems Daughter(s) Family Medical History: Cancer Additional Family Medical History / Comment(s): lymphoma General Exam Limitations: no limitations General appearance: alert, in no apparent distress Head exam: Present: atraumatic, normocephalic Eye exam: Present: normal appearance. Absent: scleral icterus, conjunctival injection ENT exam: Present: normal oropharynx Neck exam: Present: normal inspection Respiratory exam: Present: normal lung sounds bilaterally. Absent: respiratory distress, wheezes, rales, rhonchi, stridor Cardiovascular Exam: Present: tachycardia, irregular rhythm, normal heart sounds. Absent: systolic murmur, diastolic murmur, rubs, gallop GI/Abdominal exam: Present: soft. Absent: distended, tenderness, guarding, rebound, mass Extremities exam: Present: normal inspection, normal capillary refill. Absent: pedal edema, calf tenderness Back exam: Present: normal inspection Neurological exam: Present: alert Skin exam: Present: warm, intact, normal color, diaphoretic. Absent: rash, cyanosis, erythema, petechiae, pallor, mottled Course Vital Signs 02/28/17 02/28/17 01:19 02:31 Temperature 97.3 F L Pulse Rate 50 L 155 H Respiratory 18 18 Rate Blood Pressure 94/71 95/54 O2 Sat by Pulse 98 98 Oximetry EKG Findings - EKG Results: EKG: interpreted by ERMD, normal axis, normal QRS, normal ST/T EKG shows: atrial fibrillation (Rate is variable up to the 140s.) Medical Decision Making - Lab Data Result diagrams: 02/28/17 01:45 02/28/17 01:45 Lab Results 02/28/17 02/28/17 02/28/17 Range/Units 01:45 01:45 01:45 WBC 8.2 (3.8-10.6) k/uL RBC 4.51 (4.30-5.90) m/uL Hgb 15.0 (13.0-17.5) gm/dL Hct 45.7 (39.0-53.0) % MCV 101.2 H (80.0-100.0) fL MCH 33.2 (25.0-35.0) pg MCHC 32.8 (31.0-37.0) g/dL RDW 12.8 (11.5-15.5) % Plt Count 232 (150-450) k/uL Neutrophils % 73 % Lymphocytes % 15 % Monocytes % 7 % Eosinophils % 2 % Basophils % 1 % Neutrophils # 6.0 (1.3-7.7) k/uL Lymphocytes # 1.3 (1.0-4.8) k/uL Monocytes # 0.5 (0-1.0) k/uL Eosinophils # 0.2 (0-0.7) k/uL Basophils # 0.0 (0-0.2) k/uL PT (9.0-12.0) sec INR (<1.2) APTT (22.0-30.0) sec Sodium 140 (137-145) mmol/L Potassium 4.2 (3.5-5.1) mmol/L Chloride 109 H (98-107) mmol/L Carbon Dioxide 21 L (22-30) mmol/L Anion Gap 10 mmol/L BUN 31 H (9-20) mg/dL Creatinine 1.90 H (0.66-1.25) mg/dL Est GFR (MDRD) Af Amer 42 (>60 ml/min/1.73 sqM) Est GFR (MDRD) Non-Af 35 (>60 ml/min/1.73 sqM) Glucose 106 H (74-99) mg/dL Calcium 9.1 (8.4-10.2) mg/dL Magnesium 1.9 (1.6-2.3) mg/dL Total Bilirubin 0.3 (0.2-1.3) mg/dL AST 20 (17-59) U/L ALT 32 (21-72) U/L Alkaline Phosphatase 59 (38-126) U/L Total Creatine Kinase 31 L (55-170) U/L CK-MB (CK-2) 1.5 (0.0-2.4) ng/mL CK-MB (CK-2) Rel Index 4.8 Troponin I 0.146 H* (0.000-0.034) ng/mL Total Protein 5.9 L (6.3-8.2) g/dL Albumin 3.6 (3.5-5.0) g/dL TSH 2.130 (0.465-4.680) mIU/L 02/28/17 Range/Units 01:45 WBC (3.8-10.6) k/uL RBC (4.30-5.90) m/uL Hgb (13.0-17.5) gm/dL Hct (39.0-53.0) % MCV (80.0-100.0) fL MCH (25.0-35.0) pg MCHC (31.0-37.0) g/dL RDW (11.5-15.5) % Plt Count (150-450) k/uL Neutrophils % % Lymphocytes % % Monocytes % % Eosinophils % % Basophils % % Neutrophils # (1.3-7.7) k/uL Lymphocytes # (1.0-4.8) k/uL Monocytes # (0-1.0) k/uL Eosinophils # (0-0.7) k/uL Basophils # (0-0.2) k/uL PT 11.5 (9.0-12.0) sec INR 1.1 (<1.2) APTT 26.4 (22.0-30.0) sec Sodium (137-145) mmol/L Potassium (3.5-5.1) mmol/L Chloride (98-107) mmol/L Carbon Dioxide (22-30) mmol/L Anion Gap mmol/L BUN (9-20) mg/dL Creatinine (0.66-1.25) mg/dL Est GFR (MDRD) Af Amer (>60 ml/min/1.73 sqM) Est GFR (MDRD) Non-Af (>60 ml/min/1.73 sqM) Glucose (74-99) mg/dL Calcium (8.4-10.2) mg/dL Magnesium (1.6-2.3) mg/dL Total Bilirubin (0.2-1.3) mg/dL AST (17-59) U/L ALT (21-72) U/L Alkaline Phosphatase (38-126) U/L Total Creatine Kinase (55-170) U/L CK-MB (CK-2) (0.0-2.4) ng/mL CK-MB (CK-2) Rel Index Troponin I (0.000-0.034) ng/mL Total Protein (6.3-8.2) g/dL Albumin (3.5-5.0) g/dL TSH (0.465-4.680) mIU/L Disposition Clinical Impression: Atrial fibrillation with RVR, Acute renal failure (ARF), Elevated troponin I measurement Disposition: ADMITTED IP TO THIS HOSP Condition: Fair Referrals: Arron Alba MD [Primary Care Provider] - 1-2 days
[2017-02-28] MEDS ORDERED: SODIUM CHLORIDE 0.9% 500 ML IV STA (02:09)
[2017-02-28 02:12] LABS: Basophils % (A) 1 %; CH 33.1; CHCM 32.8; Eosinophils # (A) 0.2 k/uL (0-0.7); Eosinophils % (A) 2 %; HCT 45.7 % (39.0-53.0); HDW 2.29; Luc # (Auto) 0.18; Luc % (Auto) 2; Lymphocytes # (A) 1.3 k/uL (1.0-4.8); Lymphocytes % (A) 15 %; MCH 33.2 pg (25.0-35.0); MCHC 32.8 g/dL (31.0-37.0); MCV 101.2 fL (80.0-100.0); Mean Platelet Volume 7.7; Monocytes # (A) 0.5 k/uL (0-1.0); Monocytes % (A) 7 %; Neutrophils % (A) 73 %; RBC 4.51 m/uL (4.30-5.90); RDW 12.8 % (11.5-15.5); WBC 8.2 k/uL (3.8-10.6); WBC (Perox) 8.54
[2017-02-28] MEDS ORDERED: DILTIAZEM 5 MG/ML 5 ML VIAL IVP STA (02:20)
[2017-02-28] MEDS ORDERED: SODIUM CHLORIDE 0.9% 1,000 ML IV ONE (02:20)
[2017-02-28 02:24] LABS: Calcium 9.1 mg/dL (8.4-10.2); Magnesium 1.9 mg/dL (1.6-2.3); Potassium 4.2 mmol/L (3.5-5.1); Total Bilirubin 0.3 mg/dL (0.2-1.3); Total Protein 5.9 g/dL (6.3-8.2)
--- NOTE | 2017-02-28 02:39 | XR ---
EXAM: XR Chest, 1 View CLINICAL HISTORY: Reason: dysrhythmia TECHNIQUE: Frontal view of the chest. COMPARISON: 09/25/2016 FINDINGS: Lungs: Unremarkable. No consolidation. Pleural space: Unremarkable. No pneumothorax. Heart: Unremarkable. No cardiomegaly. Mediastinum: Unremarkable. Bones/joints: Unchanged. Vasculature: Tortuosity and/or ectasia of the thoracic aorta is again seen. IMPRESSION: No acute cardiopulmonary process.
[2017-02-28 02:40] LABS: Creatine Kinase MB 1.5 ng/mL (0.0-2.4)
[2017-02-28 02:47] LABS: INR 1.1 (<1.2); Partial Thromboplastin Time 26.4 sec (22.0-30.0); Prothrombin Time 11.5 sec (9.0-12.0)
[2017-02-28 02:58] LABS: Troponin I 0.146 ng/mL (0.000-0.034)
[2017-02-28] MEDS ORDERED: NITROGLYCERIN SL TABS 0.4 MG TAB SUBLINGUAL PRN (03:16)
[2017-02-28] MEDS: SODIUM CHLORIDE 0.9% 1,000 ML IV SCH ×2 (04:19→15:04)
[2017-02-28 05:43] VITALS: BMI 28.0
[2017-02-28] MEDS ORDERED: LISINOPRIL 10 MG TAB PO SCH (09:00)
[2017-02-28] MEDS ORDERED: METOPROLOL TARTRATE 25 MG TAB PO SCH ×2 (09:00→16:00)
[2017-02-28 09:02] LABS: Creatine Kinase <20 U/L (55-170)
[2017-02-28 09:14] LABS: Creatine Kinase MB 1.2 ng/mL (0.0-2.4)
--- NOTE | 2017-02-28 09:18 | P.CRDCN ---
History of Present Illness Consult date: 02/28/17 Requesting physician: Narayan Hopson Reason for Consult (text): atrial fib w/RVR Chief complaint: palpitations, diaphoresis History of present illness: Is an 71-year-old gentleman who follows with Dr. Palomino in the office. Has a history of paroxysmal atrial fibrillation, one week status post atrial fibrillation ablation, dyslipidemia, hypertension, prior left nephrectomy and PVCs. He presented to the emergency department with complaints of intermittent feelings of being cold and clammy as well as feeling his heart racing. He had no complaints of chest discomfort, nausea or vomiting, dizziness, syncope or edema. Upon arrival EKG showed patient to be in atrial fibrillation with rapid ventricular response he was started on Cardizem and has since converted to sinus rhythm with PVCs. Chest x-ray showed no acute cardiopulmonary process. A values were reviewed and showed a decline in renal function with his baseline creatinine of 1.3, currently 1.9, troponin is elevated at 0.146. On examination , patient is resting comfortably in bed. He denies further complaints of feeling cold and clammy or palpitations. Past Medical History Past Medical History: Atrial Fibrillation, Hyperlipidemia, Hypertension, Osteoarthritis (OA), Skin Disorder Additional Past Medical History / Comment(s): precancerous skin areas removed History of Any Multi-Drug Resistant Organisms: None Reported Past Surgical History: Ablation, Hernia Repair, Tonsillectomy Additional Past Surgical History / Comment(s): lt nephrectomy r/t noncancerous tumor, cataracts Past Anesthesia/Blood Transfusion Reactions: No Reported Reaction Past Psychological History: No Psychological Hx Reported Smoking Status: Never smoker Past Alcohol Use History: Occasional Past Drug Use History: None Reported - Past Family History Mother Additional Family Medical History / Comment(s): lupus Father Additional Family Medical History / Comment(s): heart problems Daughter(s) Family Medical History: Cancer Additional Family Medical History / Comment(s): lymphoma Medications and Allergies Home Medications Medication Instructions Recorded Confirmed Type Aloe Vera 5,000 mg PO DAILY 07/21/15 02/28/17 History Flaxseed [Flaxseed Oil] 1,000 mg PO DAILY 07/21/15 02/28/17 History Multivitamins, Thera [Multivitamin 1 tab PO DAILY 07/21/15 02/28/17 History (formulary)] [place]-3 Fatty Acids/Fish Oil [Fish 1 cap PO DAILY 07/21/15 02/28/17 History Oil 1,000 mg Softgel] Simvastatin 10 mg PO HS 07/21/15 02/28/17 History Ubidecarenone [Co Q-10] 200 mg PO DAILY 07/21/15 02/28/17 History Apixaban [Eliquis] 5 mg PO BID #0 10/17/16 02/28/17 Rx Alpha Lipoic Acid 300 mg PO DAILY 02/17/17 02/28/17 History Cholecalciferol [Vitamin D3] 5,000 unit PO DAILY 02/17/17 02/28/17 History Cyanocobalamin (Vitamin B-12) 1,000 mcg PO DAILY 02/17/17 02/28/17 History [Vitamin B-12] Lisinopril [Zestril] 10 mg PO DAILY 02/17/17 02/28/17 History Metoprolol Tartrate [Lopressor] 25 mg PO BID 02/17/17 02/28/17 [address] Saw [place] 500 mg PO DAILY 02/28/17 02/28/17 History Allergies Allergy/AdvReac Type Severity Reaction Status Date / Time No Known Allergies Allergy Verified 02/28/17 07:49 Physical Exam Vitals: Vital Signs Temp Pulse Pulse Resp BP BP Pulse Ox 02/28/17 05:45 97.4 F L 74 16 103/59 98 02/28/17 04:09 71 16 96/64 98 02/28/17 04:04 97.9 F 75 18 92/65 98 02/28/17 03:54 73 16 88/52 98 02/28/17 03:34 87 16 87/57 98 02/28/17 02:31 155 H 18 95/54 98 02/28/17 01:19 97.3 F L 50 L 18 94/71 98 Intake and Output 02/27/17 02/28/17 02/28/17 22:59 06:59 14:59 Intake Total 209.083 Balance 209.083 Intake: Intake, IV Titration 209.083 Amount Diltiazem 125 mg In 9.083 Sodium Chloride 0.9% 100 ml @ 5 MG/HR 5 mls/hr IV .Q24H [facility] Rx#:[id number] Sodium Chloride 0.9% 1, 200 000 ml @ 100 mls/hr IV . Q10H [facility] Rx#:[id number] Other: Voiding Method Toilet Weight 91.1 kg PHYSICAL EXAMINATION: HEENT: Head is atraumatic, normocephalic. Pupils equal, round. Neck is supple. There is no elevated jugular venous pressure. HEART EXAMINATION: Heart sounds regular, S1 and S2 normal. No murmur or gallop heard. CHEST EXAMINATION: Lungs are clear to auscultation and precussion. No chest wall tenderness is noted on palpation or with deep breathing. ABDOMEN: Soft, nontender. Bowel sounds are heard. No organomegaly noted. EXTREMITIES: 2+ peripheral pulses with no evidence of peripheral edema and no calf tenderness noted. NEUROLOGIC patient is awake, alert and oriented x3. . Results 02/28/17 01:45 02/28/17 01:45 Cardiac Enzymes 02/28/17 02/28/17 Range/Units 01:45 01:45 AST 20 (17-59) U/L CK-MB (CK-2) 1.5 (0.0-2.4) ng/mL Troponin I 0.146 H* (0.000-0.034) ng/mL Coagulation 02/28/17 Range/Units 01:45 PT 11.5 (9.0-12.0) sec APTT 26.4 (22.0-30.0) sec CBC 02/28/17 Range/Units 01:45 WBC 8.2 (3.8-10.6) k/uL RBC 4.51 (4.30-5.90) m/uL Hgb 15.0 (13.0-17.5) gm/dL Hct 45.7 (39.0-53.0) % Plt Count 232 (150-450) k/uL Comprehensive Metabolic Panel 02/28/17 Range/Units 01:45 Sodium 140 (137-145) mmol/L Potassium 4.2 (3.5-5.1) mmol/L Chloride 109 H (98-107) mmol/L Carbon Dioxide 21 L (22-30) mmol/L BUN 31 H (9-20) mg/dL Creatinine 1.90 H (0.66-1.25) mg/dL Glucose 106 H (74-99) mg/dL Calcium 9.1 (8.4-10.2) mg/dL AST 20 (17-59) U/L ALT 32 (21-72) U/L Alkaline Phosphatase 59 (38-126) U/L Total Protein 5.9 L (6.3-8.2) g/dL Albumin 3.6 (3.5-5.0) g/dL Current Medications Generic Name Dose Route Start Last Admin Trade Name Freq PRN Reason Stop Dose Admin Apixaban 5 mg 02/28/17 09:00 Eliquis PO BID [facility] Cyanocobalamin 5,000 mcg 02/28/17 09:00 Vitamin B-12 PO DAILY [facility] Sodium Chloride 1,000 mls @ 100 mls/hr 02/28/17 03:30 02/28/17 04:19 Saline 0.9% IV 100 mls/hr .Q10H [facility] Administration Lisinopril 10 mg 02/28/17 09:00 Zestril PO DAILY [facility] Metoprolol Tartrate 25 mg 02/28/17 09:00 Lopressor PO BID [facility] Multivitamins 1 each 02/28/17 09:00 Theragran PO DAILY [facility] Nitroglycerin 0.4 mg 02/28/17 03:16 Nitrostat SUBLINGUAL Q5M PRN Chest Pain Intake and Output 02/27/17 02/28/17 02/28/17 22:59 06:59 14:59 Intake Total 209.083 Balance 209.083 Intake: Intake, IV Titration 209.083 Amount Diltiazem 125 mg In 9.083 Sodium Chloride 0.9% 100 ml @ 5 MG/HR 5 mls/hr IV .Q24H [facility] Rx#:[id number] Sodium Chloride 0.9% 1, 200 000 ml @ 100 mls/hr IV . Q10H [facility] Rx#:[id number] Other: Voiding Method Toilet Weight 91.1 kg 02/28/17 01:45 02/28/17 01:45 EKG Interpretations (text) Atrial fibrillation with rapid ventricular response Assessment and Plan Plan: Assessment and plan #1 paroxysmal atrial fibrillation with rapid ventricular response, currently in sinus rhythm #2 hypertension #3 acute on chronic renal failure, history of left nephrectomy #4 hyperlipidemia #5 elevated troponin, could be related to recent ablation From cardiology's perspective, we will obtain a 2-D echo with Doppler to assess LV systolic function. We will stop Cardizem drip. Follow troponin trend. Stop lisinopril. Continue to hydrate the patient. Continue to monitor the patients renal function. Further recommendations to follow. AUTOMOTIVE BUYER note has been reviewed, I agree with a documented findings and plan of care. Patient was seen and examined.
[2017-02-28 09:19] LABS: Troponin I 0.153 ng/mL (0.000-0.034)
--- NOTE | 2017-02-28 09:32 | P.PN ---
Progress Note - Text This is an addendum to the dictated cardiology consultation. The patient underwent atrial fibrillation ablation last week, was seen by Dr. Jauregui and Tuesday and he was in sinus mechanism. Yesterday he was not feeling well, was mildly dyspneic and was having some palpitations, presented to the emergency room and was in atrial fibrillation with RVR and subsequently converted back to sinus mechanism. Patient has a single kidney and his renal function today are worse than his baseline. He denies any chest discomfort, no peripheral edema or syncope. On physical examination he is in sinus mechanism with no evidence of lung congestion or peripheral edema. I will stop his IV Cardizem, increase the dose of his beta lamont and hold his HYACINTH inhibitor because of his renal function. An echocardiogram with Doppler will be obtained. Depending on the results of his echocardiogram he may be a candidate for adding an antiarrhythmic to try to maintain sinus mechanism in the acute phase post ablation. The minimal elevation of his troponin most likely is related to his ablation. Thank you for this consult we will follow with you.
[2017-02-28] MEDS: APIXABAN 5 MG TAB PO SCH ×2 (09:42→22:07)
[2017-02-28] MEDS: MULTIVITAMINS, THERA 1 EACH TAB PO SCH (09:42)
[2017-02-28] MEDS: CYANOCOBALAMIN 500 MCG TAB PO SCH (09:45)
--- NOTE | 2017-02-28 10:21 | ECHOF ---
Referral Reason:AFIB MEASUREMENTS -------- HEIGHT: 182.9 cm WEIGHT: 90.7 kg BP: 103/59 IVSd: 1.3 cm (0.6 - 1.1) LVIDd: 4.0 cm (3.9 - 5.3) LVPWd: 1.3 cm (0.6 - 1.1) IVSs: 2.0 cm LVIDs: 2.7 cm LVPWs: 1.8 cm LAESV Index (A-L): 48.66 ml/m Ao Diam: 3.5 cm (2.0 - 3.7) AV Cusp: 2.3 cm (1.5 - 2.6) LA Diam: 3.1 cm (2.7 - 3.8) MV EXCURSION: 18.742 mm (> 18.000) MV EF SLOPE: 81 mm/s (70 - 150) EPSS: 0.6 cm RAP: 5.00 mmHg RVSP: 25.06 mmHg FINDINGS -------- Atrial fibrillation. This was a technically good study. The left ventricular size is normal. There is mild concentric left ventricular hypertrophy. Overall left ventricular systolic function is normal with, an EF between 55 - 60 %. The right ventricle is normal in size and function. LA is severely dilated >40 ml/m2 The right atrium is normal in size. The aortic valve is trileaflet, and appears structurally normal. No aortic stenosis or regurgitation. The mitral valve leaflets are mildly thickened. Hdwurljc-bo-bvfnmv mitral regurgitation is present. There is mild mitral valve prolapse. Mild tricuspid regurgitation present. The right ventricular systolic pressure, as measured by Doppler, is 25.06mmHg. Pulmonic valve appears structurally normal. The aortic root size is normal. The pericardium is normal. CONCLUSIONS -------- 1. Atrial fibrillation. 2. The mitral valve leaflets are mildly thickened. 3. Dmmiusjw-rh-axcuzd mitral regurgitation is present. 4. There is mild mitral valve prolapse. 5. Mild tricuspid regurgitation present. 6. The right ventricular systolic pressure, as measured by Doppler, is 25.06mmHg. 7. Pulmonic valve appears structurally normal. 8. The aortic root size is normal. 9. The pericardium is normal. 10. This was a technically good study. 11. The left ventricular size is normal. 12. There is mild concentric left ventricular hypertrophy. 13. Overall left ventricular systolic function is normal with, an EF between 55 - 60 %. 14. The right ventricle is normal in size and function. 15. LA is severely dilated >40 ml/m2 16. The right atrium is normal in size. 17. The aortic valve is trileaflet, and appears structurally normal. No aortic stenosis or regurgitation. OVER SHORT AND DAMAGE CLERK: Faiza Madison RDCS
[2017-02-28] MEDS: FLECAINIDE 50 MG TAB PO SCH (15:03)
[2017-02-28 15:16] LABS: Troponin I 0.115 ng/mL (0.000-0.034)
--- NOTE | 2017-02-28 18:25 | P.HPIM ---
History of Present Illness H&P Date: 02/28/17 Chief Complaint: Short of breath and clammy History of presenting complaint: This is a very pleasant 70-year-old patient of Dr. castillo.Chronic stable medical conditions include hypertension, hyperlipidemia, osteoarthritis, and left nephrectomy for a non-cancerous lesion. Patient about a week ago underwent ablation for atrial fibrillation by Dr. Palomino. Was doing well. Yesterday he became short of breath clammy unwell tired. Decided to come in. Was found to be in atrial fibrillation with rapid ventricular rate. Patient has been on Eliquis for anticoagulation. Patient's is at the bedside. GEN.: Tired, clammy EYES: None HEENT: None NECK: None RESPIRATORY: Short of breath CARDIOVASCULAR: As above GASTROINTESTINAL: None GENITOURINARY: None MUSCULOSKELETAL: Arthritic pain in the joints especially the shoulders LYMPHATICS: None HEMATOLOGICAL: None PSYCHIATRY: None NEUROLOGICAL: None Past medical history: Atrial fibrillation, hypertension, hyperlipidemia, osteoarthritis. 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 EYES: Pupils equal. Conjunctiva normal. HEENT: External appearance of nose and ears normal, oral cavity grossly normal. NECK: JVD not raised; masses not palpable. HEART: Heart sounds irregular; no edema. LUNGS: Respiratory rate normal; clear to auscultation. ABDOMEN: Soft, nontender, liver spleen not palpable, no masses palpable. LYMPHATICS: No lymph nodes palpable in the axilla and neck. PSYCH: Alert and oriented x3; mood and affect normal. NEUROLOGICAL: Cranial nerves grossly intact; no facial asymmetry, power and sensation grossly intact. Investigations: White count 8.2, hemoglobin 15, potassium 4.2, BUN 31, creatinine 1.90 BUN was 23 and creatinine 1.39 on EKG-A. fib with rapid ventricular rate 2-D echocardiogram shows EF of 55-60%, LAD severely dilated Moderate to severe mitral regurgitation Assessment: -Persistent atrial fibrillation in a patient who just had ablation a week ago-: Back into atrial fibrillation, on Eliquis for anticoagulation uncontrolled -Essential hypertension -Hyperlipidemia -Primary osteoarthritis in multiple joints bilateral -Left nephrectomy for a noncancerous lesion Plan: Patient initially was on IV Cardizem drip. That was discontinued. Patient is on Lopressor 25 twice a day. Also flecainide was added. Cardiology was consulted. Care was discussed with the patient and at the bedside. Questions were answered. Past Medical History Past Medical History: Atrial Fibrillation, Hyperlipidemia, Hypertension, Osteoarthritis (OA), Skin Disorder Additional Past Medical History / Comment(s): precancerous skin areas removed History of Any Multi-Drug Resistant Organisms: None Reported Past Surgical History: Ablation, Hernia Repair, Tonsillectomy Additional Past Surgical History / Comment(s): lt nephrectomy r/t noncancerous tumor, cataracts Past Anesthesia/Blood Transfusion Reactions: No Reported Reaction Past Psychological History: No Psychological Hx Reported Smoking Status: Never smoker Past Alcohol Use History: Occasional Past Drug Use History: None Reported - Past Family History Mother Additional Family Medical History / Comment(s): lupus Father Additional Family Medical History / Comment(s): heart problems Daughter(s) Family Medical History: Cancer Additional Family Medical History / Comment(s): lymphoma Medications and Allergies Home Medications Medication Instructions Recorded Confirmed Type Aloe Vera 5,000 mg PO DAILY 07/21/15 02/28/17 History Flaxseed [Flaxseed Oil] 1,000 mg PO DAILY 07/21/15 02/28/17 History Multivitamins, Thera [Multivitamin 1 tab PO DAILY 07/21/15 02/28/17 History (formulary)] [place]-3 Fatty Acids/Fish Oil [Fish 1 cap PO DAILY 07/21/15 02/28/17 History Oil 1,000 mg Softgel] Simvastatin 10 mg PO HS 07/21/15 02/28/17 History Ubidecarenone [Co Q-10] 200 mg PO DAILY 07/21/15 02/28/17 History Apixaban [Eliquis] 5 mg PO BID #0 10/17/16 02/28/17 Rx Alpha Lipoic Acid 300 mg PO DAILY 02/17/17 02/28/17 History Cholecalciferol [Vitamin D3] 5,000 unit PO DAILY 02/17/17 02/28/17 History Cyanocobalamin (Vitamin B-12) 1,000 mcg PO DAILY 02/17/17 02/28/17 History [Vitamin B-12] Lisinopril [Zestril] 10 mg PO DAILY 02/17/17 02/28/17 History Metoprolol Tartrate [Lopressor] 25 mg PO BID 02/17/17 02/28/17 History Saw [place] 500 mg PO DAILY 02/28/17 02/28/17 History Allergies Allergy/AdvReac Type Severity Reaction Status Date / Time No Known Allergies Allergy Verified 02/28/17 07:49 Results CBC & Chem 7: 02/28/17 01:45 02/28/17 01:45
[2017-02-28] MEDS ORDERED: FLECAINIDE 50 MG TAB PO SCH (21:00)
[2017-02-28] MEDS: METOPROLOL TARTRATE 25 MG TAB PO SCH (22:06)
[2017-03-01] MEDS: FLECAINIDE 50 MG TAB PO SCH ×2 (00:13→08:50)
[2017-03-01] MEDS: SODIUM CHLORIDE 0.9% 1,000 ML IV SCH ×2 (00:14→08:51)
[2017-03-01 07:10] LABS: Anion Gap 6 mmol/L; Blood Urea Nitrogen 22 mg/dL (9-20); Calcium 8.4 mg/dL (8.4-10.2); Carbon Dioxide 21 mmol/L (22-30); Chloride 114 mmol/L (98-107); Cholesterol 118 mg/dL (<200); Glucose 89 mg/dL (74-99); HDL Cholesterol 41 mg/dL (40-60); Non-African American GFR(MDRD) 59 (>60 ml/min/1.73 sqM); Potassium 4.4 mmol/L (3.5-5.1); Sodium 141 mmol/L (137-145)
[2017-03-01 07:40] VITALS: RESP 14
[2017-03-01] MEDS: APIXABAN 5 MG TAB PO SCH (08:49)
[2017-03-01] MEDS: MULTIVITAMINS, THERA 1 EACH TAB PO SCH (08:50)
[2017-03-01] MEDS: METOPROLOL TARTRATE 25 MG TAB PO SCH (08:50)
[2017-03-01] MEDS: CYANOCOBALAMIN 500 MCG TAB PO SCH (08:50)
[2017-03-01] MEDS ORDERED: ASPIRIN 325 MG TAB PO SCH (09:00)
[2017-03-01 11:24] VITALS: BP 139/94; PULSE 71; TEMP 97.9
--- NOTE | 2017-03-01 12:37 | PN ---
PROGRESS NOTE Mr. Ceballos is a 71-year-old male who recently underwent A. fib ablation and presented with symptoms of palpitation, atrial fibrillation. He is back in sinus mechanism and is maintaining sinus mechanism. He denies any chest pain. His breathing has been stable. He denies any dizziness or palpitation. He continues to be on Eliquis 5 mg twice a day, flecainide 50 mg twice a day, metoprolol tartrate 25 mg twice a day. PHYSICAL EXAMINATION: Blood pressure 139/90 with the heart rate in the 70s. LUNGS: Clear. HEART: Regular rate and rhythm. S1, S2. No S3. No rub. ABDOMEN: Soft, nontender. EXTREMITIES: No edema. LAB DATA: Lab data revealed a BUN creatinine of 22 and 1.2, which has improved compared to yesterday's. Potassium 4.4. His cholesterol is 118, LDL of 62. He had an echocardiogram that revealed a preserved systolic function with moderate to severe mitral regurgitation. IMPRESSION: 1. Paroxysmal atrial fibrillation, back in sinus mechanism. 2. Renal function abnormality resolving in a patient with single kidney. 3. Mild elevation of the troponin, most likely related to his recent ablation. 4. Mitral regurgitation, needs to be followed as an outpatient. In that regard, he has no symptoms at this point, and his systolic function is normal. RECOMMENDATION: From the cardiac standpoint, I would expect he should be able to be discharged home today and follow as an outpatient with Dr. Jauregui. MMCLEMENTINEL / DENISAN: [id number] /
--- NOTE | 2017-03-01 14:39 | P.DS ---
Providers Date of admission: 02/28/17 03:16 Expected date of discharge: 03/01/17 Attending physician: Narayan Hopson Consults: 02/28/17 03:16 Consult Physician Routine Consulting Provider: Adan Jauregui Consult Reason/Comments: Atrial fibrillation with rapid ventricular rate Do you want consulting provider notified?: Yes 02/28/17 15:59 Consult Physician Routine Consulting Provider: Marie Flores Consult Reason/Comments: renal failure Do you want consulting provider notified?: Yes Primary care physician: Arron A [facility] Course: FINAL DIAGNOSES: -Persistent atrial fibrillation in a patient who just had ablation a week ago-: Back into atrial fibrillation, on Eliquis for anticoagulation uncontrolled -Essential hypertension -Hyperlipidemia -Primary osteoarthritis in multiple joints bilateral -Left nephrectomy for a noncancerous lesion HOSPTIAL COURSE: 70-year-old male is status post ablation for atrial fibrillation, presented to the emergency department with healing's of shortness of breath and feeling clammy, was found to be in atrial fibrillation with rapid ventricular rate. Admitted for the same. Home medications reordered, Cardizem drip initiated, patient was artery on Eliquis from home that was continued. Patient converted once he arrived on the floor Cardizem drip stopped, Lopressor 25 mg twice a day and flecainide 50 mg twice a day was added to his medication regimen. Was found to have elevated kidney function lisinopril was stopped. Patient had no further episodes of atrial fibrillation or flutter, no chest pain dizziness palpitations lightheadedness or feeling clammy. Tolerating his diet, ambulatory in the room and piper ways, moving his bowels. Condition is stabilized patient is appropriate for discharge to home. PHYSICAL EXAM: CARDIOVASCULAR: First and second sound noted no edema RESPIRATORY: Respiratory effort normal lung sounds clear to auscultation PSYCHIATRY: Alert and oriented 3 but affect normal Patient was seen and examined by nurse practitioner Michelle Peter in all elements of the case discussed with attending Dr. 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 Hopson. Patient Condition at Discharge: Stable Plan - Discharge Summary New Discharge Prescriptions: New Flecainide [Tambocor] 50 mg PO Q12HR #60 tab Nitroglycerin Sl Tabs [Nitrostat] 0.4 mg SUBLINGUAL Q5M PRN #21 tab PRN Reason: Chest Pain Continue Flaxseed [Flaxseed Oil] 1,000 mg PO DAILY Ubidecarenone [Co Q-10] 200 mg PO DAILY Aloe Vera 5,000 mg PO DAILY [place]-3 Fatty Acids/Fish Oil [Fish Oil 1,000 mg Softgel] 1 cap PO DAILY Multivitamins, Thera [Multivitamin (formulary)] 1 tab PO DAILY Simvastatin 10 mg PO HS Apixaban [Eliquis] 5 mg PO BID #0 Cyanocobalamin (Vitamin B-12) [Vitamin B-12] 1,000 mcg PO DAILY Cholecalciferol [Vitamin D3] 5,000 unit PO DAILY Metoprolol Tartrate [Lopressor] 25 mg PO BID Alpha Lipoic Acid 300 mg PO DAILY Saw [place] 500 mg PO DAILY Discontinued Lisinopril [Zestril] 10 mg PO DAILY Discharge Medication List Aloe Vera 5,000 mg PO DAILY 07/21/15 [History] Flaxseed [Flaxseed Oil] 1,000 mg PO DAILY 07/21/15 [History] Multivitamins, Thera [Multivitamin (formulary)] 1 tab PO DAILY 07/21/15 [History ] [place]-3 Fatty Acids/Fish Oil [Fish Oil 1,000 mg Softgel] 1 cap PO DAILY [History] Simvastatin 10 mg PO HS 07/21/15 [History] Ubidecarenone [Co Q-10] 200 mg PO DAILY 07/21/15 [History] Apixaban [Eliquis] 5 mg PO BID #0 10/17/16 [Rx] Alpha Lipoic Acid 300 mg PO DAILY 02/17/17 [History] Cholecalciferol [Vitamin D3] 5,000 unit PO DAILY 02/17/17 [History] Cyanocobalamin (Vitamin B-12) [Vitamin B-12] 1,000 mcg PO DAILY 02/17/17 [ History] Metoprolol Tartrate [Lopressor] 25 mg PO BID 02/17/17 [History] Saw [place] 500 mg PO DAILY 02/28/17 [History] Flecainide [Tambocor] 50 mg PO Q12HR #60 tab 03/01/17 [Rx] Nitroglycerin Sl Tabs [Nitrostat] 0.4 mg SUBLINGUAL Q5M PRN #21 tab 03/01/17 [Rx ] Follow up Appointment(s)/Referral(s): Adan Jauregui MD [STAFF PHYSICIAN] - 1 Week Arron Alba MD [Primary Care Provider] - 03/04/17 9:45 am Ambulatory/Diagnostic Orders: Basic Metabolic Panel [LAB.AMB] Location: Determined By Patient Patient Instructions/Handouts: Atrial Fibrillation (DC) Discharge Disposition: HOME SELF-CARE
--- NOTE | 2017-03-01 21:13 | CONS ---
CONSULTATION The patient is seen for evaluation of renal failure. DATE OF CONSULTATION: Today, 03/01/2017. HISTORY OF PRESENT ILLNESS: The patient is a 71-year-old male with a past history of A. fib. who was admitted to the hospital with A. fib. with RVR. He recently had ablation by Dr. Jauregui about 2 days ago. He is back in sinus rhythm now. The patient's serum creatinine on admission was 1.9. He has been maintained on IV fluids and it is now down to 1.2 mg/dL. The patient denies any prior history of kidney diseases; however, he does have a solitary kidney secondary to history of left nephrectomy for a tumor which turned out to be nonmalignant. PAST MEDICAL HISTORY: A. fib., hypertension, hyperlipidemia, osteoarthritis. PAST SURGICAL HISTORY: Recent ablation, hernia repair, left nephrectomy, cataract surgery. MEDICATIONS: Currently include: 1. Normal saline. 2. Lopressor. 3. Tambocor. 4. Vitamin B12. 5. Eliquis. 6. Aspirin. SOCIAL HISTORY: Negative for smoking, drug abuse or alcohol abuse. EXAMINATION: Patient is comfortable, awake, alert, oriented x3, not in any acute distress. Blood pressure was 139/94, heart rate 71 per minute. He is afebrile. HEART: S1, S2. LUNGS: Bilateral breath sounds are heard. ABDOMEN: Soft, nontender. Lower extremities show no evidence of edema. REFUSE COLLECTOR: Grossly intact. LABS: Sodium 141, potassium 4.4, chloride 114, BUN 22, serum creatinine 1.2. Hemoglobin 15.0 g/dL. ASSESSMENT: 1. Acute kidney injury, prerenal, currently improved with IV hydration. The patient is not maintained on any angiotensin-converting enzyme inhibitors. He is advised to not use any nonsteroidal anti-inflammatory agents other than aspirin. 2. Atrial fibrillation with rapid ventricular response, currently back in normal sinus rhythm, maintained on anticoagulation. 3. History of left nephrectomy for a tumor which turned out to be non malignant. PLAN: The patient is stable for discharge. He needs to have a urinalysis done, which I do not see on this admission. However, this could be followed up as outpatient as well. MMODL / IJN: [id number] /
--- NOTE | 2017-03-02 06:11 | DS ---
DISCHARGE SUMMARY DATE OF SERVICE: 03/01/2017. ATTENDING NOTE: This patient was seen and examined by me. I discussed with my nurse practitioner, Ms. Peter. This patient was admitted with atrial fibrillation after recent ablation. Patient started on flecainide, did go back to sinus rhythm. The patient is on Eliquis for anticoagulation. The patient is in acute renal failure with creatinine up to 1.9; hence HYACINTH inhibitor was discontinued. Blood pressure before discharge was 139/94. On exam, lungs are clear. Care was discussed with the patient and in detail. Questions were answered. MMODL / IJN: [id number] /
== END 2017-03-01 15:36 | disposition home or self-care (01) | DRG 309 ==
LOC: EC 01:15 → 6SEL 03:16
PROVIDERS: ADMIT Hospitalist; ATTEND Hospitalist
DX: I48.0 Paroxysmal atrial fibrillation (principal); N17.9 Acute kidney failure, unspecified; I34.0 Nonrheumatic mitral (valve) insufficiency; E78.5 Hyperlipidemia, unspecified; I48.1 Persistent atrial fibrillation; I49.3 Ventricular premature depolarization; M15.9 Polyosteoarthritis, unspecified; R74.8 Abnormal levels of other serum enzymes; I10 Essential (primary) hypertension; Z79.01 Long term (current) use of anticoagulants; Z79.899 Other long term (current) drug therapy; Z90.5 Acquired absence of kidney
CPT/HCPCS: 36415; 71010; 80048; 80053; 80061; 82550; 82553; 83735; 84443; 84484; 85025; 85610; 85730; 93005; 93306; 96365; 96366; 96376; 99285

== ENCOUNTER → 2017-04-20 | Outpatient (CLI) | payer MEDICARE ==
--- NOTE | 2017-04-20 18:06 | PN ---
PROGRESS NOTE This is a 71-year-old gentleman who has been followed in the sleep center for treatment of obstructive sleep apnea-hypopnea syndrome. Recently the patient had a polysomnogram and CPAP titration. I discussed results of the sleep studies with the patient in detail. He has severe sleep apnea with apnea- hypopnea index 48.3. He was started on treatment with CPAP. He came in for follow-up visit. I checked his CPAP unit. Pressure is in the range between 5 and 10 in automatic regimen. Usage is 97% for more than 4 hours. Average usage is 6 hours and 50 minutes. Apnea-hypopnea index reading from the machine for the last month is 11.9, for last night is 4.8. Leak is 95%, or 10.1, which is in normal range. Most of the time pressure is 9.9 cm of water. Subsequently it is at the maximal level of recommended pressure. The patient sleeps better with the machine. No snoring. No sleepiness during the day as before. [place] Sleepiness Scale today is 4. The patient sometimes has difficulties because he does not feel enough air when he starts to use his machine. His REM is starting from 4 cm of water. MEDICATIONS: 1. Simvastatin. 2. Metoprolol. 3. Eliquis. PHYSICAL EXAMINATION: Patient in no distress. VITAL SIGNS: BP 113/87, HR 100 with some irregularities, RR 16, temperature 98.0, oxygen saturation on room air 97%. HEENT: PERRLA, EOMI. Evaluation of oropharynx showed tongue protrudes midline; low position of soft palate. NECK: Supple. No JVD. Thyroid is not palpable. LUNGS: Clear to percussion and to auscultation. Good air exchange. No wheezing or rhonchi. HEART: Irregularly irregular. ABDOMEN: Soft, non-tender. Bowel sounds present. EXTREMITIES: No clubbing or cyanosis. CERTIFIED NURSE: Awake, alert and oriented x3. Cranial nerves 2 to 7 intact. There is no fasciculation or atrophy noted. No focal deficits observed. IMPRESSION: 1. Severe obstructive sleep apnea-hypopnea syndrome; apnea-hypopnea index 48.3 with oxygen desaturation to 77.3%, improved on CPAP with a pressure in the range of 10 cm of water, but the patient still has some abnormalities of respirations related to central and obstructive apneas. He is benefitting from treatment. He demonstrated practically 100% compliance with treatment. 2. Atrial fibrillation. 3. Hypertension. 4. Hyperlipidemia. PLAN: 1. I adjusted RAMP to start from 6 cm of water. 2. I changed the range of the pressure in the machine from 6 cm of water up to 13 cm of water. 3. Continue to use CPAP equipment every night. 4. Sleep hygiene with regular time in bed for at least 7-1/2 hours. 5. No driving if feeling any sleepiness. 6. Follow-up visit in 3 months. Thank you very much for allowing me to participate in the management of your patient. Sincerely, Freeman Lo MD, PhD, FAASM Diplomat of [employer] Environmental Health Sanitarian [facility] [place] MMJOEY / DENISAN: [id number] /
== END | disposition home or self-care (01) ==
LOC: SLEEP 15:22
PROVIDERS: ATTEND Internal Medicine
DX: G47.33 Obstructive sleep apnea (adult) (pediatric) (principal); I48.91 Unspecified atrial fibrillation; I10 Essential (primary) hypertension; E78.5 Hyperlipidemia, unspecified

== ENCOUNTER → 2017-06-23 | Outpatient (CLI) | payer MEDICARE ==
--- NOTE | 2017-06-23 12:32 | PN ---
PROGRESS NOTE FOLLOW-UP VISIT DATE OF SERVICE: 06/23/2017 A 71-year-old gentleman had been followed in sleep center for treatment of obstructive sleep apnea-hypopnea syndrome. During his previous visit, pressure in his machine was around 9.9 cm of water. It was in the range between 5 and 18, and I changed the regimen of the machine to the range of pressure from 6 to 13 cm of water. The patient continued to use his CPAP equipment and feel that he sleeps better with that. I checked his CPAP unit range of pressure 6 to 13 cm of water, most of the time CPAP pressure is 12 cm of water. RAMP is in auto regimen. Leak is 23 L/minute which is acceptable. Apnea-hypopnea index for the last month, 13.9 with central apnea index 12.4. Usage is 100% of the time more than 4 hours every 7.5 hours per night. [place] Sleepiness Scale today is 5. MEDICATIONS: Eliquis, , metoprolol, simvastatin, vitamin D3, B12, some supplements including omega-3. PHYSICAL EXAM: During physical exam, patient in no distress. VITAL SIGNS: BP 109/71, HR 108, RR 16, weight 203.2, BMI 28.2, temperature 98.3, oxygen saturation room air 97%. HEENT: PERRLA, EOMI. Oropharynx low position of soft palate. NECK: Supple, no JVD. Thyroid is not palpable. LUNGS: Clear to percussion and to auscultation. Good air exchange. No wheezing or rhonchi. HEART: S1, S2, irregularly, irregular. ABDOMEN: Soft and nontender. Bowel sounds are present. No organomegaly appreciated. EXTREMITIES: Up to 1+ ankle edema. PLUMBER SUPERVISOR: Awake, alert, and oriented X3. Cranial nerves 2 to 7 intact. There is no fasciculation or atrophy. noted. No focal deficits observed. IMPRESSION: 1. Complex sleep apnea-hypopnea syndrome. The patient demonstrated 100% compliance with treatment benefitting from treatment, but still has mostly central abnormalities of respiration while using his CPAP. 2. Atrial fibrillation. 3. Minimal swelling of the legs. 4. Hypertension. 5. Hyperlipidemia. PLAN: 1. BiPAP titration with ST mode for correction of central abnormalities during sleep. 2. Continue to use CPAP equipment at the present time with the same regimen. 3. Sleep hygiene with regular time in bed for at least 7 hours. 4. No driving if feeling sleepiness. Thank you very much for allowing me to participate in management of your patient. Sincerely, Freeman Lo MD, PhD, FAASM Diplomat of [place] [employer] Licensed Bondsman [facility] [place] MMODL / ANUPAMA: [id number] /
== END | disposition home or self-care (01) ==
LOC: SLEEP 10:49
PROVIDERS: ATTEND Internal Medicine
DX: G47.33 Obstructive sleep apnea (adult) (pediatric) (principal); I10 Essential (primary) hypertension; E78.5 Hyperlipidemia, unspecified; M79.89 Other specified soft tissue disorders; I48.91 Unspecified atrial fibrillation; Z99.89 Dependence on other enabling machines and devices; Z79.899 Other long term (current) drug therapy; Z79.01 Long term (current) use of anticoagulants

== ENCOUNTER → 2017-08-23 | Outpatient (CLI) | payer MEDICARE ==
[2017-08-23 08:35] LABS: HCT 47.4 % (39.0-53.0); HGB 15.4 gm/dL (13.0-17.5); MCH 31.5 pg (25.0-35.0); MCHC 32.5 g/dL (31.0-37.0); MCV 96.9 fL (80.0-100.0); Platelet Count 224 k/uL (150-450); RBC 4.89 m/uL (4.30-5.90); RDW 13.5 % (11.5-15.5); WBC 6.2 k/uL (3.8-10.6)
[2017-08-23 08:44] LABS: Calcium 9.3 mg/dL (8.4-10.2); Potassium 5.3 mmol/L (3.5-5.1)
== END | disposition home or self-care (01) ==
LOC: LABWHC1 08:01
PROVIDERS: ATTEND Internal Medicine Clinical Cardiac Electrophysiology
DX: I48.1 Persistent atrial fibrillation (principal)
CPT/HCPCS: 36415; 80048; 85027

== ENCOUNTER 2017-09-08 09:59 | Day surgery (SDC) | payer MEDICARE ==
[2017-09-05 13:47] VITALS: BMI 28.5
[~2017-09-08 09:59] MED LIST: LACTATED RINGERS 1,000 ML IV SCH; MORPHINE SULFATE 4MG/4ML SYRG IV PRN; SODIUM CHLORIDE 0.9% 1,000 ML IV SCH
[2017-09-08] MEDS ORDERED: PROPOFOL 10 MG/ML 20 ML VIAL IV ONE (14:25)
[2017-09-08] MEDS ORDERED: fentaNYL (PF) 50 MCG/ML 2 ML AMP ONE (14:25)
[2017-09-08] MEDS ORDERED: SUCCINYLCHOLINE CHLORIDE 100 MG/5 ML SYR IV ONE (14:25)
[2017-09-08] MEDS ORDERED: PROTAMINE SULFATE 10 MG/ML 5 ML VIAL IV ONE (14:25)
[2017-09-08] MEDS ORDERED: HEPARIN SODIUM,PORCINE 5,000 UNIT/ML 1 ML VIAL ONE (14:25)
[2017-09-08] MEDS ORDERED: ROCURONIUM BROMIDE 10 MG/ML 10 ML VIAL IV ONE (14:25)
[2017-09-08] MEDS ORDERED: MIDAZOLAM 2 MG/2 ML VIAL ONE (14:25)
[2017-09-08] MEDS ORDERED: PHENYLEPHRINE-0.9% NACL SYG 1 MG/10 ML SYRINGE ONE (14:25)
[2017-09-08] MEDS ORDERED: LIDOCAINE 2% INJ 20 MG/ML SQ ONE (15:50)
[2017-09-08] MEDS ORDERED: HEPARIN SODIUM (1,000 UNIT/ML) 1,000 UNIT in SODIUM CHLORIDE 0.9% 1,000 ML IRRIGATION ONE (16:17)
[2017-09-08] MEDS ORDERED: HEPARIN SOD,PORK IN 0.45% NACL 25,000 UNIT in 0.45% NACL 1 500ML.BAG IV ONE (16:25)
[2017-09-08] MEDS ORDERED: SODIUM CHLORIDE 0.9% 1,000 ML IV ONE (18:32)
[2017-09-08] MEDS ORDERED: ACETAMINOPHEN TAB 325 MG TAB PO PRN (19:03)
[2017-09-08] MEDS ORDERED: HYDROcodone/APAP 5-325MG 1 EACH TAB PO PRN (19:03)
[2017-09-08] MEDS ORDERED: ACETAMINOPHEN IV (For NPO) 1,000 MG in EMPTY BAG 1 BAG IVPB ONE (19:30)
--- NOTE | 2017-09-08 20:27 | CE ---
CARDIAC ELECTROPHYSIOLOGY REPORT This is a 72-year-old male patient who has had cryoablation of the pulmonary veins performed in the past. He was experiencing atrial tachycardia. He also has developed mild cardiomyopathy. He was brought in for an EP study and ablation. Patient was brought to the EP lab in a fasting state. Written informed consent was obtained prior to the procedure. The initial part of the procedure was performed under conscious sedation with anesthesia, but later general anesthesia was performed during ablation. The patient was in clinical tachycardia at the start of the study. Tachycardia cycle length was 361 milliseconds, FL interval 334 milliseconds. Later when it was ablated successfully he was in sinus rhythm. The FL interval was 180 milliseconds, QRS 123 milliseconds, QT 341 milliseconds. AH interval 104 milliseconds, HV interval 59 milliseconds. Venous sheaths were placed in the right and left femoral veins. A 5-Danish arterial sheath was placed in the right femoral artery for continuous hemodynamic monitoring and sampling. Mapping catheters and ablation catheters were placed in the coronary sinus. A PentaRay catheter was placed. Right atrial mapping was first performed, and a broad area of septal activation was noted. The coronary sinus activation was concentric. Left and right transseptal catheterization was performed with intracardiac echo guidance. The interatrial septum was identified. Pulmonary veins were identified. Left atrium was identified. Pericardium was normal at baseline, and at the end of the procedure pericardium was normal. There was no effusion. Left and right transseptal catheterization was performed. RA pressure 9 x 0 x 4 mmHg, LA pressure 22 x 0 x 10 mmHg. Electroanatomic mapping was performed, and it appeared that there was a reentry tachycardia involving the roof. PentaRay was used to map the tachycardia. Subsequently entrainment mapping was also performed to confirm this. Ripple mapping was performed and RF ablation was applied along the upper posterior part of the left atrium, and the tachycardia terminated during the ablation. The roof line was then completed from the left superior to the right superior veins. With pacing maneuvers, conduction block was demonstrated across this line. The line was anatomically completed on 100% grid without any anatomic gaps. Following that, EP study was performed. Sinus node recovery time at 600 milliseconds was 1586 milliseconds. Corresponding corrected sinus node recovery times were prolonged. AV node Wenckebach block 20 milliseconds, VA Wenckebach block 540 milliseconds. All catheters were then removed and patient was extubated. Please note that IV heparin was used during the procedure. RF ablation was applied during periods of apnea for better contact. Heparin was reversed at the end of the procedure and the sheaths were removed and a [id number] stitch was used for both sites. Patient tolerated the procedure well without any acute complications. RESULT: Diagnostic EP study revealing left atrial roof tachycardia, reentry and successful ablation and termination of the tachycardia during the procedure with conduction block demonstrated along the line. The patient tolerated the procedure well without any acute complication. The pericardium was normal. LV function seemed to improve during sinus rhythm. PLAN: Stop flecainide. Stop metoprolol tartrate. Start metoprolol succinate 25 mg p.o. daily. A follow-up echo in about 6 to 12 weeks. RITESH / ANUPAMA: [id number] /
[2017-09-08] MEDS ORDERED: ATORVASTATIN 10 MG TAB PO SCH (21:00)
[2017-09-08] MEDS: APIXABAN 5 MG TAB PO SCH (21:06)
--- NOTE | 2017-09-09 08:05 | P.DS ---
Providers Attending physician: Adan Jauregui Primary care physician: Arron [facility] Course: Patient is doing well. 6 ablating in the hallways this morning. She has no chest discomfort no dizziness lightheadedness. He does feel occasional skipped beat and his twelve-lead ECG shows occasional PVC he is in sinus rhythm. EKG is normal On examination he is afebrile 98.1F pulse rate in the 70s blood pressure 131/ 77 mmHg respirations are normal Heart sounds are normal no rub no gallop Breath sounds are clear no rhonchi no crackles Abdomen soft nontender Groins of healed well. [id number] sutures were removed. Impression Atrial fibrillation, paroxysmal, status post cryoablation of the pulmonary veins , successful Atrial tachycardia, symptomatic and associated with mild cardiomyopathy Yesterday he underwent a detailed mapping of the right and left atria This was a left atrial roof reentrant tachycardia and he underwent successful unit ablation of the upper posterior wall the termination of the tachycardia during ablation Pulmonary veins were quiescent Reduced LV systolic function noted during tachycardia by intracardiac echo Plan Discontinue flecainide, discontinue metoprolol tartrate Start metoprolol succinate 25 mg by mouth daily in the morning Continue anticoagulation with ELIQUIS Ablating the hallways today and if hemodynamically stable and groins are healing well without any bleeding issues he will be discharged home after lunchtime Follow-up with Dr. Hernández/Darcy nurse practitioner in one week Patient Condition at Discharge: Stable Plan - Discharge Summary Discharge Rx Participant: Yes New Discharge Prescriptions: Discontinued RX: Flecainide [Tambocor] 25 mg PO Q12HR RX: Metoprolol Tartrate [Lopressor] 50 mg PO DAILY No Action RX: Flaxseed [Flaxseed Oil] 1,000 mg PO DAILY RX: Ubidecarenone [Co Q-10] 200 mg PO DAILY RX: Aloe Vera 5,000 mg PO DAILY RX: Bonesteel-3 Fatty Acids/Fish Oil [Fish Oil 1,000 mg Softgel] 1 cap PO DAILY RX: Multivitamins, Thera [Multivitamin (formulary)] 1 tab PO DAILY RX: Simvastatin 10 mg PO HS RX: Apixaban [Eliquis] 5 mg PO BID #0 RX: Cyanocobalamin (Vitamin B-12) [Vitamin B-12] 1,000 mcg PO DAILY RX: Cholecalciferol [Vitamin D3] 5,000 unit PO DAILY RX: Alpha Lipoic Acid 300 mg PO DAILY RX: Saw Bethany 500 mg PO DAILY RX: Nitroglycerin Sl Tabs [Nitrostat] 0.4 mg SUBLINGUAL Q5M PRN #21 tab PRN Reason: Chest Pain RX: Triamcinolone Acetonide 60 ml TP BID Discharge Medication List RX: Aloe Vera 5,000 mg PO DAILY 07/21/15 [History] RX: Flaxseed [Flaxseed Oil] 1,000 mg PO DAILY 07/21/15 [History] RX: Multivitamins, Thera [Multivitamin (formulary)] 1 tab PO DAILY 07/21/15 [ History] RX: Bonesteel-3 Fatty Acids/Fish Oil [Fish Oil 1,000 mg Softgel] 1 cap PO DAILY [History] RX: Simvastatin 10 mg PO HS 07/21/15 [History] RX: Ubidecarenone [Co Q-10] 200 mg PO DAILY 07/21/15 [History] RX: Apixaban [Eliquis] 5 mg PO BID #0 10/17/16 [Rx] RX: Alpha Lipoic Acid 300 mg PO DAILY 02/17/17 [History] RX: Cholecalciferol [Vitamin D3] 5,000 unit PO DAILY 02/17/17 [History] RX: Cyanocobalamin (Vitamin B-12) [Vitamin B-12] 1,000 mcg PO DAILY 02/17/17 [ History] RX: Saw Bethany 500 mg PO DAILY 02/28/17 [History] RX: Nitroglycerin Sl Tabs [Nitrostat] 0.4 mg SUBLINGUAL Q5M PRN #21 tab [Rx] RX: Triamcinolone Acetonide 60 ml TP BID 09/05/17 [History] Follow up Appointment(s)/Referral(s): Adan Jauregui MD [STAFF PHYSICIAN] - 1 Week Activity/Diet/Wound Care/Special Instructions: Post EP study - Ablation instructions 1. Keep access sites dry for 2 days. 2. No heavy lifting or straining for 2 days. 3. Avoid bending the hips repeatedly for 2 days. 4. You may go up and down stairs slowly Call if the following is noted 1. Bleeding, increasing swelling or pain at the access sites. 2. Increasing chest discomfort, especially upon taking a deep breath. 3. Increasing shortness of breath, at rest or with exertion. 4. Undue cough / phlegm 5. Difficulty or pain while swallowing. 6. Pain or change in color in the extremities. 7. Fever, chills, rigors. 8. Increasing headache or neurologic symptoms. 9. Dizziness, fainting, palpitations Start flecainide Stop metoprolol tartrate Start metoprolol succinate 25 g by mouth in a.m. Continue all other medications including ELIQUIS and simvastatin Follow-up with Dr. Hernández / Darcy- nurse practitioner, in 1 week Patient may be discharged home by 2 PM if hemodynamically stable, groin is healed well Discharge Disposition: HOME SELF-CARE
[2017-09-09] MEDS: APIXABAN 5 MG TAB PO SCH (08:44)
[2017-09-09] MEDS ORDERED: METOPROLOL SUCCINATE (ER) 25 MG TAB.ER.24H PO SCH (09:00)
[2017-09-09 11:51] VITALS: BP 115/80; PULSE 72; RESP 18; TEMP 97.9
== END 2017-09-09 14:30 | disposition home or self-care (01) ==
LOC: CATHEP 09:59 → 3OBS 18:38 → CATHEP 09-09 14:30
PROVIDERS: ATTEND Internal Medicine Clinical Cardiac Electrophysiology
DX: I48.0 Paroxysmal atrial fibrillation (principal); I47.1 Supraventricular tachycardia; I44.0 Atrioventricular block, first degree; I42.9 Cardiomyopathy, unspecified; I12.9 Hypertensive chronic kidney disease with stage 1 through stage 4 chronic kidney disease, or unspecified chronic kidney disease; N18.3 Chronic kidney disease, stage 3 (moderate); Z90.5 Acquired absence of kidney; E78.2 Mixed hyperlipidemia; I34.0 Nonrheumatic mitral (valve) insufficiency; G47.33 Obstructive sleep apnea (adult) (pediatric); Z99.89 Dependence on other enabling machines and devices; Z79.01 Long term (current) use of anticoagulants; Z79.899 Other long term (current) drug therapy
CPT/HCPCS: 93462; 93613; 93653; 84132; C1894 ×2; C1769 ×3; C1730; C1731; C1893; C1732; J2001; J1644 ×2

== ENCOUNTER → 2017-10-13 | Outpatient (CLI) | payer MEDICARE ==
--- NOTE | 2017-10-13 11:38 | SFUN ---
SLEEP CENTER FOLLOW UP NOTE DATE OF SERVICE: 10/13/2017 This 72-year-old gentleman has been followed in sleep center for treatment of complex obstructive and central sleep apnea-hypopnea syndrome. Recently patient had BiPAP titration with ST mode and subsequently he received his new machine about 6 weeks ago and this is his first visit with his new machine. The patient is able to use his machine every night for the whole night without any problems. I checked his BiPAP unit. BiPAP pressure 11/[address] with respiratory rate of 12. Usage is 26/30 nights for more than 4 hours. Average usage is 6.3 hours. Leak 22 L/minute, which is acceptable. Apnea-hypopnea index for the last night only 0.1. For the last month, it is now 1.3, which is normal range. The patient had cardiac ablation for cardiac arrhythmia about 1 month ago. MEDICATIONS: Simvastatin, metoprolol, lisinopril, Eliquis, metoprolol ER. PHYSICAL EXAMINATION: During physical exam, patient in no distress. VITAL SIGNS: BP 136/93, HR 80, RR 16, weight 208, temperature 97.1, oxygen saturation on room air 99%. HEENT: PERRLA, EOMI. Oropharynx low position of soft palate. Neck: Supple, no JVD. Thyroid is not palpable. LUNGS: Clear to percussion and to auscultation. Good air exchange. No wheezing or rhonchi. HEART: S1, S2 regular. No murmurs, gallops, or rubs. ABDOMEN: Soft and nontender. Bowel sounds are present. No organomegaly appreciated. EXTREMITIES: No clubbing or cyanosis. POST DOCTORAL RESEARCHER: Awake, alert, and oriented X3. Cranial nerves 2 to 7 intact. There is no fasciculation or atrophy. noted. No focal deficits observed. IMPRESSION: 1. Complex sleep apnea-hypopnea syndrome on control with BiPAP at a pressure of 11/[address] mode with respiratory rate 12. Patient demonstrated great compliance with treatment, benefitting from treatment. 2. History of atrial fibrillation, status post cardiac ablation about 1 month ago. 3. Hypertension. 4. Hyperlipidemia. PLAN: 1. Patient will continue to use BiPAP equipment every night for the whole night. 2. Sleep hygiene with regular time in bed for at least 8 hours. 3. No driving if feeling sleepiness. 4. Prescription for all necessary BiPAP supplies. 5. Followup visit in 10 months or earlier if patient has any problems. Thank you very much for allowing me to participate in management of your patient. Sincerely, Freeman Lo MD, PhD, FAASM Diplomat of [employer] Detector Car Operator [facility] [place] MMODL / ANUPAMA: [id number] /
== END | disposition home or self-care (01) ==
LOC: SLEEP 10:07
PROVIDERS: ATTEND Internal Medicine
DX: I10 Essential (primary) hypertension (principal); E78.5 Hyperlipidemia, unspecified; Z86.79 Personal history of other diseases of the circulatory system; Z98.890 Other specified postprocedural states; G47.33 Obstructive sleep apnea (adult) (pediatric); Z79.899 Other long term (current) drug therapy; Z79.01 Long term (current) use of anticoagulants

== ENCOUNTER → 2017-12-29 | Outpatient (CLI) | payer MEDICARE ==
--- NOTE | 2017-12-29 16:14 | SFUN ---
SLEEP CENTER FOLLOW UP NOTE DATE OF SERVICE: 12/29/2017 72-year-old gentleman has been followed in Sleep Center for treatment of complex obstructive sleep apnea-hypopnea syndrome. Patient is on treatment with BiPAP in ST mode now. He is able to use his equipment every night without significant problems related to mask fitting for humidification. [place] Sleepiness Scale today is only 3. I checked reading from his machine and the machine itself. The inspiratory pressure is 11, expiratory pressure is 7. Machine is in ST mode at 12 beats per minute. For the last 3 months, usage is 82/90 days, more than 4 hours 72/90 days. Average usage is 6.2 hours. Leak is up to 26 L/minute, which is acceptable. Apnea-hypopnea index only 0.6, which is absolutely perfect. MEDICATIONS: Simvastatin, metoprolol, lisinopril, Eliquis, metoprolol ER. PHYSICAL EXAM: GENERAL Patient in no distress. VITAL SIGNS BP 138/76, HR 85, RR 16, weight 205.4, temperature 98.4, oxygen saturation on room air 98%. HEENT PERRLA, EOMI, evaluation of oropharynx showed low position of soft palate. NECK Supple, no JVD. Thyroid is not palpable. LUNGS Clear to percussion and to auscultation. Good air exchange. No wheezing or rhonchi. HEART S1, S2 regular. No murmurs, gallops, or rubs. ABDOMEN Soft and nontender. Bowel sounds are present. No organomegaly appreciated. EXTREMITIES No clubbing or cyanosis. BLOW MOLD TECHNICIAN Awake, alert, and oriented X3. Cranial nerves 2 to 7 intact. There is no fasciculation or atrophy. noted. No focal deficits observed. IMPRESSION: 1. Complex sleep apnea. The patient demonstrated good compliance with treatment benefitting from treatment. He is on treatment with BiPAP on ST mode. 2. History of atrial fibrillation status post cardiac ablation. 3. Hypertension. 4. Hyperlipidemia. PLAN: 1. Continue to use BiPAP equipment every night for the whole night. 2. Sleep hygiene with regular time in bed for at least 8 hours. 3. No driving if feeling any sleepiness. 4. Followup visit in 6 months to 1 year. Thank you very much for allowing me to participate in management of your patient. Sincerely, Freeman Lo MD, PhD, FAASM Diplomat of [employer] Lap Machine Tender [facility] [place] MMJOEY / ANUPAMA: [id number] /
== END | disposition home or self-care (01) ==
LOC: SLEEP 15:00
PROVIDERS: ATTEND Internal Medicine
DX: G47.30 Sleep apnea, unspecified (principal); I10 Essential (primary) hypertension; E78.5 Hyperlipidemia, unspecified; Z86.79 Personal history of other diseases of the circulatory system; Z98.890 Other specified postprocedural states; Z99.89 Dependence on other enabling machines and devices; Z79.899 Other long term (current) drug therapy; Z79.01 Long term (current) use of anticoagulants

== ENCOUNTER 2018-02-23 05:14 | Inpatient (IN) | payer MEDICARE ==
[2018-02-23] MEDS ORDERED: ADENOSINE 3 MG/ML 2 ML VIAL IVP STA ×2 (05:44→06:20)
--- NOTE | 2018-02-23 05:59 | ED ---
General Adult HPI - General Chief complaint: Recheck/Abnormal Lab/Rx Stated complaint: sweating and clammy Time Seen by Provider: 02/23/18 05:43 Source: patient Mode of arrival: ambulatory Limitations: no limitations - History of Present Illness Initial comments: This patient is a 72-year-old man who presents to have evaluation for suspected atrial fibrillation. The patient states that he is feeling similar to when he had a previous episode. He states that he was doing pretty well yesterday and then when he went to bed he started feeling very sweaty. He states that he was not able to sleep. He was feeling anxious and like he needed to take a deep breath. As she was not able sleep all night he felt he should be evaluated here for possible recurrence of atrial fibrillation. Onset/Timin -: hour(s) Quality: other (Swelling) Consistency: constant Improves with: none Worsens with: none Associated Symptoms: diaphoresis, malaise, shortness of breath Treatments Prior to Arrival: none - Related Data Home Medications Medication Instructions Recorded Confirmed Aloe Vera 5,000 mg PO DAILY 07/21/15 09/08/17 Flaxseed [Flaxseed Oil] 1,000 mg PO DAILY 07/21/15 09/08/17 Multivitamins, Thera [Multivitamin 1 tab PO DAILY 07/21/15 09/08/17 (formulary)] [place]-3 Fatty Acids/Fish Oil [Fish 1 cap PO DAILY 07/21/15 09/08/17 Oil 1,000 mg Softgel] Simvastatin 10 mg PO HS 07/21/15 09/08/17 Ubidecarenone [Co Q-10] 200 mg PO DAILY 07/21/15 09/05/17 Alpha Lipoic Acid 300 mg PO DAILY 02/17/17 09/08/17 Cholecalciferol [Vitamin D3] 5,000 unit PO DAILY 02/17/17 09/08/17 Cyanocobalamin (Vitamin B-12) 1,000 mcg PO DAILY 02/17/17 09/08/17 [Vitamin B-12] Saw [place] 500 mg PO DAILY 02/28/17 09/05/17 Triamcinolone Acetonide 60 ml TP BID 09/05/17 09/08/17 [Triamcinolone Acetonide 0.025%] Previous Rx's Medication Instructions Recorded Apixaban [Eliquis] 5 mg PO BID #0 10/17/16 Nitroglycerin Sl Tabs [Nitrostat] 0.4 mg SUBLINGUAL Q5M PRN #21 tab 03/01/17 Allergies Allergy/AdvReac Type Severity Reaction Status Date / Time No Known Allergies Allergy Verified 02/23/18 05:20 Review of Systems ROS Statement: Those systems with pertinent positive or pertinent negative responses have been documented in the HPI. ROS Other: All systems not noted in ROS Statement are negative. Constitutional: Denies: fever, chills, weakness Respiratory: Reports: dyspnea. Denies: cough, wheezes Cardiovascular: Denies: chest pain, palpitations, edema, syncope Gastrointestinal: Denies: abdominal pain, nausea, vomiting Musculoskeletal: Denies: back pain Skin: Denies: rash Neurological: Denies: headache, weakness, numbness Psychiatric: Reports: anxiety Past Medical History Past Medical History: Atrial Fibrillation, Hyperlipidemia, Hypertension, Osteoarthritis (OA), Skin Disorder Additional Past Medical History / Comment(s): precancerous skin areas removed, History of Any Multi-Drug Resistant Organisms: None Reported Past Surgical History: Ablation, Hernia Repair, Tonsillectomy Additional Past Surgical History / Comment(s): lt nephrectomy r/t noncancerous tumor, cataracts, Past Anesthesia/Blood Transfusion Reactions: No Reported Reaction Past Psychological History: No Psychological Hx Reported Smoking Status: Never smoker Past Alcohol Use History: None Reported Past Drug Use History: None Reported - Past Family History Mother Additional Family Medical History / Comment(s): lupus Father Additional Family Medical History / Comment(s): heart problems Daughter(s) Family Medical History: Cancer Additional Family Medical History / Comment(s): lymphoma General Exam Limitations: no limitations General appearance: alert, in no apparent distress Head exam: Present: atraumatic, normocephalic Eye exam: Present: normal appearance. Absent: scleral icterus, conjunctival injection ENT exam: Present: normal oropharynx Neck exam: Present: normal inspection, full ROM Respiratory exam: Present: normal lung sounds bilaterally. Absent: respiratory distress, wheezes, rales, rhonchi, stridor Cardiovascular Exam: Present: regular rate, tachycardia, normal heart sounds. Absent: systolic murmur, diastolic murmur, rubs, gallop GI/Abdominal exam: Present: soft. Absent: distended, tenderness, guarding, rebound, rigid, mass Extremities exam: Present: normal inspection, normal capillary refill. Absent: pedal edema, calf tenderness Back exam: Present: normal inspection. Absent: CVA tenderness (R), CVA tenderness (L) Neurological exam: Present: alert, CN II-XII intact, motor sensory deficit Skin exam: Present: warm, dry, intact, normal color. Absent: rash, cyanosis, diaphoretic, erythema, petechiae, pallor, mottled Course Vital Signs 02/23/18 02/23/18 05:17 06:30 Temperature 97.5 F L Pulse Rate 163 H 156 H Respiratory 18 16 Rate Blood Pressure 115/80 77/65 O2 Sat by Pulse 100 97 Oximetry EKG Findings - EKG Results: EKG: interpreted by ERMD EKG shows: tachycardia (Patient appears to have SVT with rate 157 bpm) - Blocks, [place], Hypertrophy, ST Abn: Chamber hypertrophy or enlargement: left ventricular hypertrophy or enlargement (LVE) Medical Decision Making - Lab Data Result diagrams: 02/23/18 05:30 02/23/18 05:30 Lab Results 02/23/18 02/23/18 02/23/18 Range/Units 05:30 05:30 05:30 WBC 8.6 (3.8-10.6) k/uL RBC 4.64 (4.30-5.90) m/uL Hgb 15.0 (13.0-17.5) gm/dL Hct 45.4 (39.0-53.0) % MCV 97.9 (80.0-100.0) fL MCH 32.3 (25.0-35.0) pg MCHC 33.0 (31.0-37.0) g/dL RDW 12.7 (11.5-15.5) % Plt Count 225 (150-450) k/uL Neutrophils % 76 % Lymphocytes % 14 % Monocytes % 7 % Eosinophils % 2 % Basophils % 0 % Neutrophils # 6.5 (1.3-7.7) k/uL Lymphocytes # 1.2 (1.0-4.8) k/uL Monocytes # 0.6 (0-1.0) k/uL Eosinophils # 0.1 (0-0.7) k/uL Basophils # 0.0 (0-0.2) k/uL PT 10.5 (9.0-12.0) sec INR 1.1 (<1.2) APTT 24.3 (22.0-30.0) sec Sodium 142 (137-145) mmol/L Potassium 4.9 (3.5-5.1) mmol/L Chloride 109 H (98-107) mmol/L Carbon Dioxide 24 (22-30) mmol/L Anion Gap 9 mmol/L BUN 29 H (9-20) mg/dL Creatinine 1.53 H (0.66-1.25) mg/dL Est GFR (CKD-EPI)AfAm 51 (>60 ml/min/1.73 sqM) Est GFR (CKD-EPI)NonAf 44 (>60 ml/min/1.73 sqM) Glucose 117 H (74-99) mg/dL Calcium 9.3 (8.4-10.2) mg/dL Magnesium 1.8 (1.6-2.3) mg/dL Total Bilirubin 0.5 (0.2-1.3) mg/dL AST 104 H (17-59) U/L ALT 108 H (21-72) U/L Alkaline Phosphatase 78 (38-126) U/L Total Protein 6.1 L (6.3-8.2) g/dL Albumin 3.7 (3.5-5.0) g/dL Disposition Clinical Impression: Atrial flutter with rapid ventricular response Disposition: ADMITTED IP TO THIS HOSP Condition: Fair Referrals: Arron Alba MD [Primary Care Provider] - 1-2 days
[2018-02-23 06:06] LABS: Basophils % (A) 0 %; Eosinophils # (A) 0.1 k/uL (0-0.7); Eosinophils % (A) 2 %; HCT 45.4 % (39.0-53.0); Lymphocytes # (A) 1.2 k/uL (1.0-4.8); Lymphocytes % (A) 14 %; MCH 32.3 pg (25.0-35.0); MCV 97.9 fL (80.0-100.0); Mean Platelet Volume 8.2; Monocytes # (A) 0.6 k/uL (0-1.0); Monocytes % (A) 7 %; Neutrophils # (A) 6.5 k/uL (1.3-7.7); Neutrophils % (A) 76 %; Platelet Count 225 k/uL (150-450); RBC 4.64 m/uL (4.30-5.90); RDW 12.7 % (11.5-15.5); WBC 8.6 k/uL (3.8-10.6)
[2018-02-23 06:17] LABS: INR 1.1 (<1.2); Partial Thromboplastin Time 24.3 sec (22.0-30.0); Prothrombin Time 10.5 sec (9.0-12.0)
[2018-02-23] MEDS ORDERED: LORazepam 2 MG/ML INJ IV STA ×2 (06:20→06:22)
[2018-02-23 06:26] LABS: Albumin 3.7 g/dL (3.5-5.0); Calcium 9.3 mg/dL (8.4-10.2); Magnesium 1.8 mg/dL (1.6-2.3); Potassium 4.9 mmol/L (3.5-5.1); Total Bilirubin 0.5 mg/dL (0.2-1.3); Total Protein 6.1 g/dL (6.3-8.2)
[2018-02-23] MEDS ORDERED: MAGNESIUM SULFATE-D5W PMX 1 GM in DEXTROSE/WATER 1 100ML.BAG IVPB ONE (06:28)
[2018-02-23] MEDS ORDERED: NITROGLYCERIN SL TABS 0.4 MG TAB SUBLINGUAL PRN (06:32)
[2018-02-23 07:18] LABS: Troponin I 0.048 ng/mL (0.000-0.034)
--- NOTE | 2018-02-23 07:34 | XR ---
EXAMINATION TYPE: XR chest 1V portable DATE OF EXAM: 02/23/2018 COMPARISON: 02/28/2017 INDICATION: Dysrhythmia TECHNIQUE: Single frontal view of the chest is obtained. FINDINGS: The heart size is mildly prominent. The pulmonary vasculature is normal. The lungs are clear. IMPRESSION: 1. No acute pulmonary process.
[2018-02-23] MEDS ORDERED: DEXTROSE 5% IN WATER 250 ML with AMIODARONE 300 MG IV ONE (08:00)
[2018-02-23] MEDS ORDERED: SODIUM CHLORIDE 0.9% 1,000 ML IV ONE (08:15)
[2018-02-23] MEDS ORDERED: NOREPINEPHRINE 4 MG in SODIUM CHLORIDE 0.9% 250 ML IV SCH (08:45)
[2018-02-23] MEDS ORDERED: PROPOFOL 10 MG/ML 20 ML VIAL IV ONE (09:03)
[2018-02-23] MEDS ORDERED: FLECAINIDE 50 MG TAB PO STA (09:06)
[2018-02-23] MEDS: SODIUM CHLORIDE 0.9% 1,000 ML IV SCH ×3 (09:42→22:20)
--- NOTE | 2018-02-23 09:46 | CONS ---
JOSE Schuster is a 72-year-old gentleman with history of paroxysmal atrial tachycardia and atrial fibrillation status post ablation, who presents to hospital complaining of sustained palpitations early this morning. He does not have any chest pain, shortness of breath, dizziness or syncope. He was feeling somewhat sweaty with this. At the time of my evaluation, his EKG shows an atrial tachyarrhythmia with a heart rate in the 150 beats per minute. This could be an atrial flutter with 2:1 block or an atrial tachycardia. He is not tolerating the rhythm well and he is hypotensive with systolic blood pressures in the 70s and 80s. We are resuscitating him with fluids and we will start him on IV Levophed and I advised the patient to undergo cardioversion because of the hemodynamic instability. Understanding the risks, benefits, he wishes to proceed with it. PAST MEDICAL HISTORY: Past medical history is significant for paroxysmal atrial tachycardia. MEDICATIONS: Medications at home include flaxseed oil, simvastatin, Eliquis. ALLERGIES: No known drug allergies. FAMILY HISTORY: Family history is negative for premature coronary artery disease. SOCIAL HISTORY: Social history is negative for current smoking, EtOH abuse or drug abuse. REVIEW OF SYSTEMS: HEENT is unremarkable. CARDIAC: As described above. RESPIRATORY: Negative. GI: Negative. GENITOURINARY: Negative. ALLERGY/IMMUNOLOGICAL: Negative. SKIN: Negative. MUSCULOSKELETAL: Significant for arthritis. PSYCHOSOCIAL: Negative. ENDOCRINE: Negative. HEMATOLOGICAL: Negative. DERM: Negative. CONSTITUTIONAL: Negative. ONCOLOGICAL: Negative. Rest of the system review is not relevant. PHYSICAL EXAMINATION: On exam, comfortable at rest. Heart rate is 150 beats per minute. Blood pressure is 77/65. Respiratory rate is 18. O2 sat is 97% on 2 L. There is no jugular venous distention. Chest exam reveals diminished air entry at the bases. Heart exam reveals first and second heart sounds, irregular rhythm. Abdomen is soft. Exam of extremities did not reveal any edema. Peripheral pulses are felt. ASSESSMENT: Atrial tachyarrhythmia, probably in atrial flutter with 2:1 block or atrial tachycardia that is with hemodynamic instability. PLAN: Patient will undergo cardioversion. He is adequately anticoagulated with Eliquis that he takes regularly. I am going to start him on IV Levophed. We are not able to give him amiodarone or Cardizem given the hypotension. The patient and his have been explained of risks, benefits and alternatives, understood and accepted. MMCLEMENTINEL / IJN: [id number] /
[2018-02-23] MEDS: APIXABAN 5 MG TAB PO SCH ×2 (11:13→20:37)
[2018-02-23 12:01] LABS: Creatine Kinase 69 U/L (55-170)
[2018-02-23] MEDS ORDERED: SODIUM CHLORIDE 0.9% 1,000 ML IV SCH (12:15)
[2018-02-23 12:24] LABS: Troponin I 0.077 ng/mL (0.000-0.034)
--- NOTE | 2018-02-23 12:46 | CE ---
CARDIAC ELECTROPHYSIOLOGY REPORT INDICATION: Atrial tachycardia with rapid ventricular rate. PROCEDURE NOTE: After obtaining informed consent, electrical cardioversion was performed after the chemical dependency therapist has anesthetized the patient. The patient was already on an anticoagulant at home in the form of Eliquis 5 b.i.d., which he is going to continue. The patient will also be started on flecainide 50 mg b.i.d. The patient converted to normal sinus rhythm following a single 200 joule synchronized shock. Patient was hemodynamically unstable prior to cardioversion and his blood pressure had improved after the cardioversion. Patient will be kept here for it today and will be discharged home tomorrow MMODL / IJN: [id number] /
--- NOTE | 2018-02-23 16:36 | P.PN ---
Progress Note - Text Twelve-lead ECG reviewed. Patient interviewed and examined. Discussed medical strategy with patient Patient was admitted with symptomatic tachycardia with a ventricular rate of 160 beats a minute. IV adenosine was given which revealed an atrial tachycardia with one-to-one conduction clinically cycle length of atrial tachycardia in the ventricular cycle length identical. Upright QRS in lead V1 upright in all precordial leads, upright in the inferior leads delayed negative in aVL, early negative in aVR Plan Stop flecainide 3 days prior to the procedure Continue anticoagulation EP study, induced arrhythmias and efficacy ablation accordingly If the arrhythmias noninducible, then S2 mapping of the left atrium and ablation of the isthmii within the scar in the roof of the left atrium Scar mapping of the left atrium with extrastimuli, S2 mapping
[2018-02-23] MEDS: FLECAINIDE 50 MG TAB PO SCH (18:36)
--- NOTE | 2018-02-23 19:01 | HP ---
HISTORY AND PHYSICAL DATE OF ADMISSION: 02/23/2018. PRESENTING COMPLAINT: Heart racing. HISTORY OF PRESENTING COMPLAINT: A very pleasant 72-year-old patient of Dr. Alba. Also followed by Dr. Jauregui, the natural resource specialist. The patient's chronic stable medical conditions include hyperlipidemia, hypertension, osteoarthritis, and gout. Yesterday patient had gone golfing and came back and was watching TV, suddenly he felt his heart racing, but more than that he broke out in a sweat and became clammy. He felt really tired. Not much dizzy. Not much shortness of breath. No chest pain. Went to bed and decided to come in the early hours of this morning. The patient presented to the ER. Earlier today patient was seen by Dr. Marco A Adams from Cardiology. The patient was have felt to have atrial tachycardia with hemodynamic instability. The patient is given anesthesia and DC cardioverted, brought back into sinus rhythm. He has remained symptom-free since then. The patient's family is at the bedside. The patient has had previous interventions done by Dr. Jauregui. REVIEW OF SYSTEMS: CONSTITUTIONAL: Tired. HEENT: None. RESPIRATORY: None. CARDIOVASCULAR: As above. GASTROINTESTINAL: None. GENITOURINARY: None. MUSCULOSKELETAL: Pain in the joints. DERMATOLOGICAL, HEMATOLOGIC, LYMPHATIC: None. PSYCHIATRY: None. NEUROLOGIC: None. PAST MEDICAL HISTORY: Atrial arrhythmias, hyperlipidemia, hypertension, osteoarthritis, precancer skin lesions, gout. 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 Does not smoke or drink alcohol. . FAMILY HISTORY: Lymphoma. HOME MEDICATIONS: 1. Toprol-XL 25 mg a day. 2. CO Q 10, 200 mg a day. 3. Simvastatin 10 mg at bedtime. 4. Nidia palmetto 5 mg a day. 5. Fish oil 1 capsule p.o. daily. 6. Nitrostat 0.4 sublingual every 5 p.r.n. 7. Multivitamin tablet p.o. daily. 8. Flaxseed oil 1000 mg p.o. daily. 9. Vitamin B12, 1000 mcg p.o. daily. 10.Vitamin D3, 5000 units p.o. daily. 11.Eliquis 5 mg p.o. b.i.d. 12.Alpha lipoic acid 300 mg p.o. daily. 13.Aloe vera 5000 mg p.o. daily. ALLERGIES: None. PHYSICAL EXAMINATION: Vital signs on presentation, temperature 97.1, pulse 156, respirations 16, blood pressure 77/65, pulse ox 100% on room air. GENERAL APPEARANCE: Average build, lying in bed comfortable. EYES: Pupils equal. Conjunctivae normal. HEENT: External appearance of nose and ears normal. Oral cavity normal. NECK: JVD not raised. Mass not palpable. Respiratory effort normal. LUNGS: Fair air entry. CARDIOVASCULAR: 1st and 2nd sounds normal, no edema. ABDOMEN: Soft, nontender. Liver and spleen not palpable. LYMPHATICS: No lymph nodes palpable in neck or axillae. PSYCHIATRY: Alert and oriented x3. Mood and affect normal. NEUROLOGIC: Pupils equal. Cranial nerves grossly intact. Power and sensation grossly intact. MUSCULOSKELETAL: Evidence of osteoarthritis, especially in the hands. INVESTIGATIONS: White count 8.6, hemoglobin 15.0, potassium 4.9, BUN 29, creatinine 1.53. The patient's creatinine was 1.32 back on 08/23/2017. EKG tracing personally reviewed by me shows a supraventricular tachycardia with some ST-segment changes in the lateral leads. Chest x-ray film personally reviewed by me, portable film, some cardiomegaly, lung oh are clear. ASSESSMENT: 1. Paroxysmal atrial tachycardia with rapid ventricular rate above 150 causing hemodynamic instability. Responded to DC cardioversion. 2. Chronic anticoagulation with Xarelto. 3. Hyperlipidemia. 4. Essential hypertension. 5. Family history of osteoarthritis. PLAN: The patient's antiarrhythmics including Toprol have been resumed. Flecainide was added by Cardiology. Also patient is put back on Eliquis. The patient will be kept on the monitor and see how he does. MMODL / IJN: [id number] /
[2018-02-23] MEDS ORDERED: ATORVASTATIN 10 MG TAB PO SCH (21:00)
[2018-02-24 03:15] LABS: Basophils % (A) 0 %; Eosinophils # (A) 0.2 k/uL (0-0.7); Eosinophils % (A) 3 %; HCT 45.5 % (39.0-53.0); HGB 14.2 gm/dL (13.0-17.5); Lymphocytes # (A) 1.1 k/uL (1.0-4.8); Lymphocytes % (A) 13 %; MCHC 31.1 g/dL (31.0-37.0); MCV 102.7 fL (80.0-100.0); Macrocytosis Slight; Mean Platelet Volume 7.5; Monocytes # (A) 0.5 k/uL (0-1.0); Monocytes % (A) 6 %; Neutrophils # (A) 6.9 k/uL (1.3-7.7); Neutrophils % (A) 78 %; Platelet Count 175 k/uL (150-450); RBC 4.43 m/uL (4.30-5.90); RDW 12.8 % (11.5-15.5); WBC 8.9 k/uL (3.8-10.6)
[2018-02-24 03:30] LABS: Calcium 8.6 mg/dL (8.4-10.2); Magnesium 1.8 mg/dL (1.6-2.3); Potassium 4.3 mmol/L (3.5-5.1)
[2018-02-24] MEDS: FLECAINIDE 50 MG TAB PO SCH (07:00)
[2018-02-24] MEDS: APIXABAN 5 MG TAB PO SCH (08:10)
[2018-02-24] MEDS: SODIUM CHLORIDE 0.9% 1,000 ML IV SCH (08:11)
[2018-02-24] MEDS ORDERED: ASPIRIN 325 MG TAB PO SCH (09:00)
[2018-02-24] MEDS ORDERED: METOPROLOL SUCCINATE (ER) 25 MG TAB.ER.24H PO SCH (09:00)
[2018-02-24 10:32] VITALS: TEMP 98.1
--- NOTE | 2018-02-24 11:40 | P.PN ---
Subjective Progress Note Date: 02/24/18 This is a pleasant 72-year-old gentleman who follows with Dr. Jauregui in the office. Has a history of paroxysmal atrial fibrillation, status post ablation 2. Presented to the hospital complaining of palpitations, diaphoresis, and not feeling well. EKG on admission showed atrial tachycardia with a heart rate in the 150s. He was given adenosine in the ER which confirmed atrial tachycardia. Blood pressure was low and he was given IV fluids as well as IV Levophed. He subsequently underwent urgent cardioversion and converted to sinus rhythm after 200 J shock. He was seen yesterday by Dr. Jauregui. He is planning on doing an EP study and ablation for atrial tachycardia. The patient has been started on flecainide which he will continue but will hold this 3 days prior to his procedure. He is anticoagulated on Eliquis which he was instructed to continue taking and not hold this at all prior to the procedure. He is maintaining sinus rhythm at the time. He's feeling well blood pressure is stable. Objective - Vital Signs Vital signs: Vital Signs Temp 98.1 F 02/24/18 08:05 Pulse 84 02/24/18 08:05 Resp 18 02/24/18 08:05 BP 148/96 02/24/18 08:05 Pulse Ox 97 02/24/18 08:05 Intake & Output 02/23/18 02/24/18 02/24/18 18:59 06:59 18:59 Intake Total 945.167 170 120 Output Total 600 Balance 345.167 170 120 Weight 94.9 kg Intake: IV 170 Sodium Chloride 0.9% 1, 170 000 ml @ 20 mls/hr IV . Q24H RAY Rx#:[id number] Intake, IV Titration 5.167 Amount Norepinephrine 4 mg In 5.167 Sodium Chloride 0.9% 250 ml @ Titrate IV .Q0M RAY Rx#:[id number] Oral 940 120 Output: Urine 600 Other: # Voids 1 - Exam PHYSICAL EXAMINATION: HEENT: Head is atraumatic, normocephalic. Pupils equal, round. Neck is supple. There is no elevated jugular venous pressure. HEART EXAMINATION: Heart sounds regular, S1 and S2 normal. No murmur or gallop heard. CHEST EXAMINATION: Lungs are clear to auscultation and precussion. No chest wall tenderness is noted on palpation or with deep breathing. ABDOMEN: Soft, nontender. Bowel sounds are heard. No organomegaly noted. EXTREMITIES: 2+ peripheral pulses with no evidence of peripheral edema and no calf tenderness noted. NEUROLOGIC patient is awake, alert and oriented x3. . - Labs CBC & Chem 7: 02/24/18 02:57 02/24/18 02:57 Labs: Abnormal Lab Results - Last 24 Hours (Table) 02/23/18 02/24/18 02/24/18 Range/Units 10:59 02:57 02:57 MCV 102.7 H (80.0-100.0) fL Chloride 112 H (98-107) mmol/L BUN 22 H (9-20) mg/dL Troponin I 0.077 H* (0.000-0.034) ng/mL Assessment and Plan Assessment: #1 symptomatic and hemodynamically unstable atrial tachycardia, status post cardioversion, maintaining sinus rhythm #2 history of atrial fibrillation in the past, status post ablation Plan: From cardiology's perspective, patient is stable for discharge home today. He will be scheduled for an EP study and ablation to be done by Dr. Jauregui at a later date. He will continue flecainide for now, he will hold for 3 days prior to the procedure. He was instructed not to hold his anticoagulation. The above dictated assessment and findings were discussed with signing physician. The impression and plan of care have been directed as dictated. Bettye Allen, Nurse Practitioner, acting as scribe for signing physician.
[2018-02-24 12:40] VITALS: BP 134/76; PULSE 75; RESP 16
--- NOTE | 2018-02-25 08:18 | DS ---
DISCHARGE SUMMARY DATE OF ADMISSION: 02/23/2018. DATE OF DISCHARGE: 02/24/2018. FINAL DIAGNOSES: 1. Paroxysmal atrial tachycardia with rapid ventricular rate causing hemodynamic instability. 2. Chronic anticoagulation with Xarelto. 3. Hyperlipidemia. 4. Essential hypertension. 5. Primary osteoarthritis. PROCEDURE: DC cardioversion. CONSULTATION: Dr. Marco A Adams from Cardiology, Dr. Adan Jauregui from electrophysiology. HOSPITAL COURSE: This extremely pleasant gentleman presented with short of breath, found to be in atrial tachycardia with rapid ventricular rate. Did drop his blood pressure. Patient was successfully cardioverted. Medications were adjusted by Dr. Jauregui including T[place]ocor was added. The patient was asymptomatic. Up and about by the time of discharge. The patient will be seen back for an EP study. The patient to stop his flecainide 3 days before the procedure. This will be scheduled by Dr. Jauregui. He discussed this with the patient. EXAMINATION: Afebrile, pulse 84, respiration 16, blood pressure 134/76. Lungs fair entry. Cardiovascular 1st and 2nd sounds normal. DISCHARGE MEDICATIONS: 1. Aloe vera 5000 units p.o. daily. 2. Multivitamin 1 tablet p.o. daily. 3. Simvastatin 10 mg p.o. q.h.s. 4. Eliquis 5 mg p.o. b.i.d. 5. Alpha lipoic acid 300 mg p.o. daily. 6. Vitamin D3 5000 units p.o. daily. 7. Vitamin B2 1000 mcg p.o. daily. 8. Nitrostat 0.4 sublingual q.5 p.r.n. 9. Toprol-XL 25 mg p.o. daily. 10.Flecainide 50 mg q.12. FOLLOW UP: Follow up with Dr. Jauregui on 03/01/2018, follow up with Dr. Arron Alba in [place] on 03/02/2018. Copy to Dr. Alba in [place]. MMODL / IJN: [id number] /
== END 2018-02-24 16:04 | disposition home or self-care (01) | DRG 310 ==
LOC: EC 05:14 → 6SEL 06:38
PROVIDERS: ADMIT Hospitalist; ATTEND Hospitalist
PROC: 5A2204Z Restoration of Cardiac Rhythm, Single (ICD-10-PCS; principal; 2018-02-23 09:00)
DX: I47.1 Supraventricular tachycardia (principal); I48.0 Paroxysmal atrial fibrillation; E78.5 Hyperlipidemia, unspecified; I10 Essential (primary) hypertension; M10.9 Gout, unspecified; M19.91 Primary osteoarthritis, unspecified site; Z79.01 Long term (current) use of anticoagulants; Z79.899 Other long term (current) drug therapy; Z80.7 Family history of other malignant neoplasms of lymphoid, hematopoietic and related tissues; Z90.5 Acquired absence of kidney
CPT/HCPCS: 36415; 71045; 80048; 80053; 80061; 82550; 82553; 83735; 84443; 84484; 85025; 85610; 85730; 92960; 93005; 96365; 96366; 96375; 99285

== ENCOUNTER → 2018-03-23 | Outpatient (CLI) | payer MEDICARE ==
[2018-03-23 09:39] LABS: HCT 44.8 % (39.0-53.0); HGB 14.2 gm/dL (13.0-17.5); MCH 31.7 pg (25.0-35.0); MCHC 31.6 g/dL (31.0-37.0); MCV 100.3 fL (80.0-100.0); Mean Platelet Volume 7.5; Platelet Count 188 k/uL (150-450); RBC 4.47 m/uL (4.30-5.90); RDW 12.9 % (11.5-15.5); WBC 5.8 k/uL (3.8-10.6)
[2018-03-23 09:52] LABS: Potassium 4.9 mmol/L (3.5-5.1)
== END ==
LOC: LABWHC1 08:12
PROVIDERS: ATTEND Internal Medicine Clinical Cardiac Electrophysiology
DX: Z01.812 Encounter for preprocedural laboratory examination (principal); I47.1 Supraventricular tachycardia; I42.8 Other cardiomyopathies
CPT/HCPCS: 36415; 80051; 82565; 82947; 84520; 85027

== ENCOUNTER 2018-03-28 06:13 | Day surgery (SDC) | payer MEDICARE ==
[2018-03-22 11:34] VITALS: BMI 27.8
[~2018-03-28 06:13] MED LIST changes: -MORPHINE SULFATE 4MG/4ML SYRG IV PRN; -SODIUM CHLORIDE 0.9% 1,000 ML IV SCH
[2018-03-28 06:41] VITALS: RESP 18
[2018-03-28] MEDS ORDERED: SODIUM CHLORIDE 0.9% 1,000 ML IV ONE (06:42)
[2018-03-28] MEDS ORDERED: fentaNYL (PF) 50 MCG/ML 2 ML AMP ONE (07:20)
[2018-03-28] MEDS ORDERED: PROPOFOL 10 MG/ML 20 ML VIAL IV ONE (07:20)
[2018-03-28] MEDS ORDERED: HEPARIN SODIUM,PORCINE 10,000 UNIT/ML 1 ML VIAL ONE (07:20)
[2018-03-28] MEDS ORDERED: PROTAMINE SULFATE 10 MG/ML 5 ML VIAL IV ONE (07:20)
[2018-03-28] MEDS ORDERED: MIDAZOLAM 2 MG/2 ML VIAL ONE (07:20)
[2018-03-28] MEDS ORDERED: LIDOCAINE 1% INJ 10MG/ML (20 ML MDV) SQ ONE (07:56)
[2018-03-28] MEDS ORDERED: HEPARIN SOD,PORK IN 0.45% NACL 25,000 UNIT in 0.45% NACL 1 500ML.BAG IV ONE (08:40)
[2018-03-28] MEDS ORDERED: HEPARIN SODIUM (1,000 UNIT/ML) 1,000 UNIT in SODIUM CHLORIDE 0.9% 1,000 ML IRRIGATION ONE ×2 (08:41→12:05)
[2018-03-28] MEDS ORDERED: SODIUM CHLORIDE 0.9% 500 ML 500 ML IV ONE (13:34)
--- NOTE | 2018-03-28 14:03 | P.PCN ---
Preoperative Diagnosis: Patient was brought to the EP lab in a fasting state. Written informed consent was obtained prior to the procedure. 2 venous sheaths and left femoral vein into venous sheaths in the right femoral vein were placed. While these diagnostic cath was placed in the high right atrium His bundle area RV Bernard sinus and later intracardiac echo, Pentaray catheter, mapping and ablation catheter Sinus cycle length 859 ms NV interval 206 ms QRS 121, QT 390 AH 78, HV 33 Sinus node recovery time 05/26/2005 milliseconds 3-D mapping and atrial tachycardia and A. fib ablation 3-D electro-anatomic mapping revealed quiescent pulmonary veins 3-D electro-anatomic mapping revealed quiescent made posterior wall which had previously undergone linear ablation, superior and inferior Multiple different atrial tachycardias, irregular atrial tachycardia is in atrial fibrillation induced with relative ease predominantly with high right atrial pacing without Isuprel On Isuprel it is more difficult inducible tachycardias First focal irregular tachycardia ablated on the anterior wall outside the antrum of the right-sided veins Second atrial tachycardia, slow atrial tachycardia successfully ablated in the anterior roof outside the line of the left superior pulmonary vein ablation Linear ablation of the anterior wall along the anterior roof and down along the septum to the right inferior vein, interrogated with 100%. Linear ablation around very fractionated 80s in the fossa ovalis area, the entire area was encircled and joint to the septal linear ablation, interrogated with 100%. Thereafter an atrial tachycardia was induced which was entrained along the mitral annulus, mitral isthmus reentry and successfully ablated. Isthmus conduction time greater than 183 ms, split potentials along the line 155 ms and with differential pacing complete bl recovery time prolonged AV node Wenckebach block for 20 ms no slow pathway no delta waves VA Wenckebach block greater than 590 ms Atrial extra stimulation from the high right atrium of the coronary sinus resulted in induction of multiple arrhythmias through the procedure of varying cycle lengths and activation patterns and regularity Left and right transseptal catheterization performed RA pressure 17/3/9 LA pressure 23/-3/11 To cardiac echo cardiography performed interatrial septum identified 3-D anatomical mapping of the left atrium and the fossa ovalis in the left atrial appendage No pericardial effusion before or after the procedure 3-D mapping and atrial tachycardia, multiple atrial tachycardias induced which would initially degenerate into atrial fibrillation, but after completion of the linear ablation, the mitral reentry was stable and did not degenerate into atrial fibrillation Very dilated left atrium 3-D electro-anatomic mapping revealed quiescent pulmonary veins 3-D electro-anatomic mapping revealed quiescent made posterior wall which had previously undergone linear ablation, superior and inferior Multiple different atrial tachycardias, irregular atrial tachycardia is in atrial fibrillation induced with relative ease predominantly with high right atrial pacing without Isuprel On Isuprel it is more difficult inducible tachycardias First focal irregular tachycardia ablated on the anterior wall outside the antrum of the right-sided veins Second atrial tachycardia, slow atrial tachycardia successfully ablated in the anterior roof outside the line of the left superior pulmonary vein ablation Linear ablation of the anterior wall along the anterior roof and down along the septum to the right inferior vein, interrogated with 100%. Linear ablation around very fractionated 80s in the fossa ovalis area, the entire area was encircled and joint to the septal linear ablation, interrogated with 100%. Thereafter an atrial tachycardia was induced which was entrained along the mitral annulus, mitral isthmus reentry and successfully ablated. Isthmus conduction time greater than 183 ms, split potentials along the line 155 ms and with differential pacing complete block proven No pericardial effusion post procedure Patient tolerated the procedure well without any acute complications Procedures performed Comprehensive diagnostic EP study with induction of multiple atrial tachycardias CS pacing and recording Programmed stimulation following Isuprel infusion Intracardiac echo Left and right transseptal catheterization 3-D mapping of the left atrium Atrial tachycardia ablation #1 with termination, anterior septum Atrial tachycardia ablation #2 with termination, anterior roof outside LSPV Linear ablation #1 anterior roof/septum Linear ablation #2, Second distinct linear ablation encircling the fossa ovalis in areas of fractionation Atrial tachycardia #3 Mitral reentry, successful termination More than 5 catheters used during the procedure Long procedure which took over 6 hours and involved mapping of multiple tachycardias and arrhythmias in the atrium, multiple left atrial 3-D electro-anatomic maps made Anesthesia: MAC
[2018-03-28] MEDS ORDERED: ACETAMINOPHEN IV (For NPO) 1,000 MG in EMPTY BAG 1 BAG IVPB ONE (14:09)
[2018-03-28] MEDS ORDERED: HYDROcodone/APAP 5-325MG 1 EACH TAB PO PRN (14:09)
[2018-03-28] MEDS ORDERED: ACETAMINOPHEN TAB 325 MG TAB PO PRN (14:09)
--- NOTE | 2018-03-28 14:17 | P.DS ---
Providers Attending physician: Adan Jauregui Primary care physician: Arron Jones [facility] Course: Patient is doing well. He is ablating in the hallways. No chest discomfort dizziness lightheadedness. He does have an irregular heartbeat secondary to PVCs He has 2 different PVC morphologys On examination afebrile 98.2F, blood pressure 135/84 mmHg pulse rate in the 80s Breath sounds are normal no rhonchi no crackles Heart sounds are normal but irregular Abdomen soft nontender Extremities warm no edema impression History of persistent atrial fibrillation History of persistent atrial tachycardia PVCs He underwent radiofrequency ablation yesterday involving Ablation of 2 focal total tachycardias, 1 mitral reentrant atrial tachycardia and linear ablation involving the roof and the second linear ablation involving the anterior septum All inducible arrhythmias were terminated during RF including A. fib Plan Discharge home, continue anticoagulants and follow-up in the office in 2-3 weeks Impression Atrial fibrillation status post pulmonary vein isolation in 2017 did mapping of the pulmonary veins revealed that they were quiescent and the ablation performed last year was durable Posterior wall isolation, quiescent posterior wall, durable ablation that was originally performed in 2017 Yesterday multiple atrial tachycardias were ablated. Please see fully dictated note Impression Persistent atrial fibrillation, symptomatic Recurrent atrial tachycardia, very symptomatic with recent admission Plan Stop flecainide Reduce the Toprol succinate 25 mg by mouth daily Continue ELIQUIS Follow Dr. Hernández within 2 weeks Plan - Discharge Summary Discharge Rx Participant: Yes New Discharge Prescriptions: New RX: Metoprolol Succinate (ER) [Toprol XL] 25 mg PO DAILY #30 tab Discontinued RX: Metoprolol Succinate (ER) [Toprol XL] 25 mg PO BID RX: Flecainide [Tambocor] 50 mg PO Q12H #180 tab No Action RX: Flaxseed [Flaxseed Oil] 1,000 mg PO DAILY RX: Ubidecarenone [Co Q-10] 200 mg PO DAILY RX: Aloe Vera 5,000 mg PO DAILY RX: Outing-3 Fatty Acids/Fish Oil [Fish Oil 1,000 mg Softgel] 1 cap PO DAILY RX: Multivitamins, Thera [Multivitamin (formulary)] 1 tab PO DAILY RX: Simvastatin 10 mg PO HS RX: Apixaban [Eliquis] 5 mg PO BID #0 RX: Cyanocobalamin (Vitamin B-12) [Vitamin B-12] 1,000 mcg PO DAILY RX: Cholecalciferol [Vitamin D3] 5,000 unit PO DAILY RX: Alpha Lipoic Acid 300 mg PO DAILY RX: Saw Lorida 500 mg PO DAILY RX: Nitroglycerin Sl Tabs [Nitrostat] 0.4 mg SUBLINGUAL Q5M PRN #21 tab PRN Reason: Chest Pain Discharge Medication List RX: Aloe Vera 5,000 mg PO DAILY 07/21/15 [History] RX: Flaxseed [Flaxseed Oil] 1,000 mg PO DAILY 07/21/15 [History] RX: Multivitamins, Thera [Multivitamin (formulary)] 1 tab PO DAILY 07/21/15 [ History] RX: Outing-3 Fatty Acids/Fish Oil [Fish Oil 1,000 mg Softgel] 1 cap PO DAILY [History] RX: Simvastatin 10 mg PO HS 07/21/15 [History] RX: Ubidecarenone [Co Q-10] 200 mg PO DAILY 07/21/15 [History] RX: Apixaban [Eliquis] 5 mg PO BID #0 10/17/16 [Rx] RX: Alpha Lipoic Acid 300 mg PO DAILY 02/17/17 [History] RX: Cholecalciferol [Vitamin D3] 5,000 unit PO DAILY 02/17/17 [History] RX: Cyanocobalamin (Vitamin B-12) [Vitamin B-12] 1,000 mcg PO DAILY 02/17/17 [ History] RX: Saw Lorida 500 mg PO DAILY 02/28/17 [History] RX: Nitroglycerin Sl Tabs [Nitrostat] 0.4 mg SUBLINGUAL Q5M PRN #21 tab [Rx] RX: Metoprolol Succinate (ER) [Toprol XL] 25 mg PO DAILY #30 tab 03/28/18 [Rx] Follow up Appointment(s)/Referral(s): Adan Jauregui MD [STAFF PHYSICIAN] - 2 Weeks Activity/Diet/Wound Care/Special Instructions: Post EP study - Ablation instructions 1. Keep access sites dry for 2 days. 2. No heavy lifting or straining for 2 days. 3. Avoid bending the hips repeatedly for 2 days. 4. You may go up and down stairs slowly Call if the following is noted 1. Bleeding, increasing swelling or pain at the access sites. 2. Increasing chest discomfort, especially upon taking a deep breath. 3. Increasing shortness of breath, at rest or with exertion. 4. Undue cough / phlegm 5. Difficulty or pain while swallowing. 6. Pain or change in color in the extremities. 7. Fever, chills, rigors. 8. Increasing headache or neurologic symptoms. 9. Dizziness, fainting, palpitations Start flecainide Reduce metoprolol to succinate 25 mg by mouth daily Continue ELIQUIS 5 mg twice daily Discharge Disposition: HOME SELF-CARE
[2018-03-28] MEDS: SODIUM CHLORIDE 0.9% 1,000 ML IV SCH ×2 (16:18→19:46)
[2018-03-28] MEDS: APIXABAN 5 MG TAB PO SCH (19:44)
[2018-03-28] MEDS ORDERED: ATORVASTATIN 10 MG TAB PO SCH (21:00)
[2018-03-29] MEDS: APIXABAN 5 MG TAB PO SCH (08:19)
[2018-03-29] MEDS ORDERED: METOPROLOL SUCCINATE (ER) 25 MG TAB.ER.24H PO SCH (09:00)
[2018-03-29] MEDS ORDERED: FUROSEMIDE 40 MG TAB PO STA (10:55)
[2018-03-29 12:04] VITALS: BP 131/86; PULSE 77; TEMP 97.9
== END 2018-03-29 13:08 | disposition home or self-care (01) ==
LOC: CATHEP 06:13 → 1SOBS 13:38 → CATHEP 03-29 13:08
PROVIDERS: ATTEND Internal Medicine Clinical Cardiac Electrophysiology
DX: I47.1 Supraventricular tachycardia (principal); I48.1 Persistent atrial fibrillation; I49.3 Ventricular premature depolarization; I44.7 Left bundle-branch block, unspecified; I45.81 Long QT syndrome; I42.9 Cardiomyopathy, unspecified; I95.9 Hypotension, unspecified; I12.9 Hypertensive chronic kidney disease with stage 1 through stage 4 chronic kidney disease, or unspecified chronic kidney disease; N18.3 Chronic kidney disease, stage 3 (moderate); I34.0 Nonrheumatic mitral (valve) insufficiency; E78.2 Mixed hyperlipidemia; G47.33 Obstructive sleep apnea (adult) (pediatric); Z99.89 Dependence on other enabling machines and devices; Z79.01 Long term (current) use of anticoagulants; Z79.899 Other long term (current) drug therapy
CPT/HCPCS: 93462; 93623; 93662; 93613; 93653; 93655; 85347; C1894; C1769 ×4; C1730; C1731; C1759; C1893; C1732; J2250; J2720; J1644 ×3; J2001; J3010; J2704

== ENCOUNTER 2018-07-13 09:21 | Day surgery (SDC) | payer MEDICARE ==
[2018-07-11 14:58] VITALS: BMI 27.8
[2018-07-13 10:14] VITALS: TEMP 97.8
[2018-07-13] MEDS ORDERED: LIDOCAINE 1% 20 ML VIAL (10MG/ML) FOR IV START SQ ONE (10:23)
[2018-07-13] MEDS ORDERED: LIDOCAINE 1% INJ 10MG/ML (20 ML MDV) ONE (11:24)
[2018-07-13] MEDS ORDERED: PROPOFOL 10 MG/ML 20 ML VIAL IV ONE (11:24)
--- NOTE | 2018-07-13 12:07 | P.PCN ---
Date of Procedure: 07/13/18 Procedure(s) Performed: Procedure: Total colonoscopy. Preoperative diagnosis: Positive cologuard. Postoperative diagnosis: Diverticulosis with no evidence of acute diverticulitis , strictures, polyps or cancer. Preparation: HalfLytely prep. Sedation: Was provided by anesthesia. Brief clinical history: The patient is a 73-year-old male who is scheduled for this evaluation because of positive cologuard test. The patient has no abdominal complaints, overt bleeding or anemia. He had a colonoscopy more than 10 years ago. Procedure: With the patient on his left lateral decubitus position and after informed consent and adequate sedation, the perianal area was inspected and it did not show any fissures or fistulas. There were no masses felt on digital rectal examination. The Olympus CFH 190L video colonoscope was then inserted in the rectum in the usual fashion and advanced to the cecum. There were multiple diverticular orifices seen scattered in the sigmoid and left-side and occasional small orifice on the right side and around the hepatic flexure with no evidence of acute diverticulitis or strictures. The mucosa appeared healthy. No polyps or tumors were seen or any obvious abnormalities. I retroflexed the endoscope in the rectum before the endoscope was withdrawn. The patient tolerated the procedure well. Plan: The patient was reassured. Discussed dietary measures. I would not recommend further workup at this time and that can be kept as a contingency based on his course. Consideration can be given for an upper GI workup if he has upper GI complaints or anemia. He will follow up with you as planned and I will be happy to see in the future if needed.
[2018-07-13 12:18] VITALS: BP 127/72; PULSE 70; RESP 18
== END 2018-07-13 12:37 | disposition home or self-care (01) ==
LOC: ORWHC2ENDO 09:21
DX: K57.30 Diverticulosis of large intestine without perforation or abscess without bleeding (principal); I48.91 Unspecified atrial fibrillation; I10 Essential (primary) hypertension; E78.5 Hyperlipidemia, unspecified; M19.90 Unspecified osteoarthritis, unspecified site; Z90.5 Acquired absence of kidney; G47.33 Obstructive sleep apnea (adult) (pediatric); M10.9 Gout, unspecified; Z85.828 Personal history of other malignant neoplasm of skin; Z79.01 Long term (current) use of anticoagulants; Z79.899 Other long term (current) drug therapy
CPT/HCPCS: 45378; J2001; J2704

== ENCOUNTER → 2018-07-19 | Outpatient (CLI) | payer MEDICARE ==
[2018-07-19 08:23] LABS: HCT 44.8 % (39.0-53.0); HGB 14.9 gm/dL (13.0-17.5); MCH 32.4 pg (25.0-35.0); MCHC 33.3 g/dL (31.0-37.0); MCV 97.1 fL (80.0-100.0); Platelet Count 177 k/uL (150-450); RBC 4.61 m/uL (4.30-5.90); RDW 13.1 % (11.5-15.5); WBC 4.4 k/uL (3.8-10.6)
[2018-07-19 12:28] LABS: Anion Gap 6.1 mmol/L (4.00-12.00); Calcium 9.1 mg/dL (8.7-10.3); Carbon Dioxide 27.9 mmol/L (21.6-31.8); Magnesium 1.8 mg/dL (1.5-2.4); Potassium 4.4 mmol/L (3.5-5.5)
== END ==
LOC: LABWHC1 07:44
PROVIDERS: ATTEND Internal Medicine Interventional Cardiology
DX: I48.91 Unspecified atrial fibrillation (principal); I25.10 Atherosclerotic heart disease of native coronary artery without angina pectoris
CPT/HCPCS: 36415; 80048; 83735; 85027

== ENCOUNTER 2018-07-20 06:06 | Day surgery (SDC) | payer MEDICARE ==
[2018-07-18 14:20] VITALS: BMI 27.8
--- NOTE | 2018-07-18 20:41 | HP ---
HISTORY AND PHYSICAL DATE OF SURGERY: 07/20/2018 Mr. Landen Ceballos is a 72-year-old gentleman, a patient of Dr. Jauregui, who has a history of hypertension, hyperlipidemia, atrial tachycardia and atrial fibrillation, for which he had a previous radiofrequency ablation. He also has a single kidney. 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 He came in for a stress test, walked on the treadmill for nearly 4 minutes and developed several frequent runs of non-sustained ventricular tachycardia at a rate of about 180 beats per minute, up to 4 to 5 beats in a row, unassociated with any significant symptoms. However, he had shortness of breath but no clear-cut angina. The nuclear scan revealed inferoapical reversible defect which is new, in addition to a fixed defect in the inferobasal portion with ejection fraction in the range of 50%. In view of a new abnormality on the stress test and frequent PVCs, I am recommending coronary angiography. The rationale, risks, benefits and options were carefully explained to the patient. He has a single kidney and therefore he will be orally hydrated, brought in for the procedure, and we will use the least amount of contrast. This was explained to the patient in detail. He understood all details and wished to proceed with the procedure. I reviewed with him the findings of the nuclear scan and the rationale for coronary angiography. The procedure is scheduled for 07/20/2018 at [facility]. I also reviewed the previous stress test report and noted that the inferoapical reversible defect is new, but the inferobasal fixed defect is not new. The patient understands the risks, benefits, options and rationale and wishes to proceed with the procedure. PAST MEDICAL HISTORY: 1. Paroxysmal atrial fibrillation, paroxysmal atrial tachycardia, status post radiofrequency ablation. 2. Hypertension. 3. History of single kidney with a previous benign growth and nephrectomy; details unclear. 4. Obstructive sleep apnea syndrome. Wears a CPAP. MEDICATIONS: Medications at home include: 1. Simvastatin 10 mg daily. 2. Metoprolol succinate 25 mg daily, which I am increasing to 50 mg daily. 3. Eliquis 5 mg b.i.d. He used to take flecainide, which apparently was discontinued. PHYSICAL EXAMINATION: Blood pressure is 130/80. Pulse rate is about 80 per minute, regular. HEENT: Unremarkable. Fundus was not examined by me. Neck is supple. There is no JVD. I do not hear a carotid bruit. Heart exam reveals S1, S2. No significant murmurs. The rhythm is somewhat irregular. Lungs revealed decent air entry. Abdomen is soft, nontender. Lower extremities reveal diminished pulses. Central nervous system is grossly within normal limits. Resting EKG revealed sinus mechanism with minor non-specific ST abnormality. IMPRESSION: 1. Probable coronary artery disease in a patient with an abnormal stress test with runs of wide QRS tachycardia and inferoapical reversible defect with fair ejection fraction. 2. History of atrial fibrillation, paroxysmal, PAT, status post radiofrequency ablation. 3. History of hypertension. 4. Hyperlipidemia. 5. History of a single kidney because of a benign growth and nephrectomy more than 10 years ago. RECOMMENDATIONS: I am advising coronary angiography. Procedure will be performed on 07/20/2018. The rationale, risks, benefits and options were carefully explained to the patient. He understands all details and wishes to proceed with the procedure. We will use the least amount of dye and patient will be hydrated orally. Eliquis will be held until the procedure. MMODL / IJN: [id number] /
[2018-07-20] MEDS ORDERED: ALPRAZolam 0.25 MG TAB PO PRN (06:10)
[2018-07-20] MEDS ORDERED: ATORVASTATIN 80 MG TAB PO STA (06:10)
[2018-07-20] MEDS ORDERED: NITROGLYCERIN SL TABS 0.4 MG TAB SUBLINGUAL PRN (06:10)
[2018-07-20] MEDS ORDERED: ALPRAZolam 0.5 MG TAB PO PRN (06:10)
[2018-07-20] MEDS ORDERED: ASPIRIN 325 MG TAB PO STA (06:10)
[2018-07-20] MEDS ORDERED: SODIUM CHLORIDE 0.9% 1,000 ML in EMPTY BAG 1 BAG IV ONE (06:10)
[2018-07-20 06:52] VITALS: TEMP 97.5
[2018-07-20] MEDS ORDERED: HEPARIN SODIUM 1,000 UN/ML (10ML VL) ONE (07:08)
[2018-07-20] MEDS ORDERED: VERAPAMIL 2.5 MG/ML 2 ML AMP ONE (07:09)
[2018-07-20] MEDS ORDERED: fentaNYL (PF) 50 MCG/ML 2 ML AMP ONE (07:09)
[2018-07-20] MEDS ORDERED: LIDOCAINE 1% INJ 10MG/ML (20 ML MDV) ONE (07:09)
[2018-07-20] MEDS ORDERED: MIDAZOLAM 2 MG/2 ML VIAL IVP ONE (07:20)
[2018-07-20] MEDS ORDERED: LIDOCAINE 1% INJ 10MG/ML (20 ML MDV) SQ ONE (07:25)
[2018-07-20] MEDS ORDERED: VERAPAMIL SYRINGE (5 MG/10 ML) INTRAARTER ONE ×2 (07:26→07:35)
[2018-07-20] MEDS ORDERED: HEPARIN SODIUM 1,000 UN/ML (10ML VL) IV ONE (07:33)
[2018-07-20] MEDS ORDERED: NITROGLYCERIN 1000MCG/10ML SYRINGE INTRACORON ONE (07:35)
[2018-07-20] MEDS ORDERED: IOPAMIDOL-370 100ML BTL INJ ONE (07:40)
[2018-07-20] MEDS ORDERED: SODIUM CHLORIDE 0.9% 1,000 ML IV SCH (07:50)
--- NOTE | 2018-07-20 08:55 | CC ---
CARDIAC CATHETERIZATION REPORT DATE OF SERVICE: 07/20/2018 PROCEDURE: Left heart catheterization and coronary angiography. PERFORMED BY: Dr. Erica Rocha. Moderate conscious sedation time was 18 minutes. CLINICAL INFORMATION: This is a 73-year-old gentleman with episodes of atrial fibrillation, paroxysmal atrial tachycardia and also ventricular tachycardia, nonsustained. He had a stress test and had several runs of ventricular tachycardia with inferoapical reversible defect suggestive of ischemia and therefore he was advised to come in for a cardiac catheterization after due discussion regarding risks, benefits, and options. 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 His creatinine was 1.5 and he was adequately hydrated orally. PROCEDURE NOTE: Under local anesthesia and strict aseptic precautions, a 6-Cymro introducer was placed in the right radial artery. Using a 3.5 curved right and left diagnostic Yana catheters, I performed coronary angiography and the same right catheter was used to check LV pressures. LV gram was not performed. The sheath was taken out and TR band applied as per protocol with good saturation in the fingers of the right hand of 97%. Patient received 2000 units of heparin intravenously. The patient tolerated procedure well without complications. He received about 25-30 mL of contrast for the procedure. CARDIAC CATHETERIZATION FINDINGS: The left ventricular end-diastolic pressure was 12 mmHg without any gradient across the aortic valve. CORONARY ANGIOGRAPHY FINDINGS: RIGHT CORONARY ARTERY: A large dominant vessel, very tortuous in the proximal portion. Distally gives off a large PLV and a very small PDA. No significant disease. Minor irregularities noted. LEFT MAIN CORONARY ARTERY: Short patent disease-free vessel that bifurcates into LAD and circumflex. Left main itself is free of significant disease. LEFT ANTERIOR DESCENDING CORONARY ARTERY: Good caliber vessel, extends along the anterior wall, gives off a good-sized diagonal branch proximally, runs all the way to the apex. Gives off septal branches. No significant disease is noted and LAD is free of significant disease, has only minor irregularities. LEFT POSTERIOR CIRCUMFLEX CORONARY ARTERY: Technically, a nondominant vessel, gives off two good-sized obtuse marginals and then continues distally as a posterolateral branch. Has minor irregularities, no significant disease. LEFT VENTRICULOGRAM: This was not performed. FINAL IMPRESSION: This patient has a right dominant system. He has a large LAD system and a fair caliber circumflex system. There is no significant obstructive disease. Filling pressures are normal and no significant gradient across the aortic valve. RECOMMENDATIONS: Findings were discussed with the patient and family. He will be discharged today. He will pursue medical therapy and he will see Dr. Jauregui in one week. MMODL / DENISAN: [id number] /
[2018-07-20 12:31] VITALS: BP 106/62; PULSE 74; RESP 18
== END 2018-07-20 14:50 | disposition home or self-care (01) ==
LOC: CATHCVL 06:06
PROVIDERS: ATTEND Internal Medicine Interventional Cardiology
DX: R94.39 Abnormal result of other cardiovascular function study (principal); I48.0 Paroxysmal atrial fibrillation; I47.2 Ventricular tachycardia; I47.1 Supraventricular tachycardia; I77.1 Stricture of artery; E78.00 Pure hypercholesterolemia, unspecified; E78.5 Hyperlipidemia, unspecified; Z90.5 Acquired absence of kidney; G47.33 Obstructive sleep apnea (adult) (pediatric); Z99.89 Dependence on other enabling machines and devices; Z79.01 Long term (current) use of anticoagulants; Z79.899 Other long term (current) drug therapy
CPT/HCPCS: 93458; C1894; J2250; J2001; J1644; Q9967

== ENCOUNTER → 2018-08-08 | Outpatient (CLI) | payer MEDICARE ==
[2018-08-08 17:22] LABS: Uric Acid 7.1 mg/dL (3.7-8.7)
== END | disposition home or self-care (01) ==
LOC: LABWHC1 08:46
PROVIDERS: ATTEND Internal Medicine Rheumatology
DX: M10.9 Gout, unspecified (principal)
CPT/HCPCS: 36415; 82565; 84450; 84460; 84520; 84550

== ENCOUNTER → 2018-09-28 | Outpatient (CLI) | payer MEDICARE ==
--- NOTE | 2018-09-28 16:36 | PN ---
PROGRESS NOTE DATE OF SERVICE: 09/28/2018 This patient is a 73-year-old gentleman who has been followed in the sleep center for treatment of complex sleep apnea. The patient is on treatment with BiPAP ST mode. The patient is able to use equipment every night for the whole night without any significant problems. [place] Sleepiness Scale today is 5. I checked his BiPAP ST mode unit. Pressure is 11/7 cm of water. Respiratory rate on ST mode 12. Usage is 100% of nights. Average usage 6.3 hours per night. Leak is 18 L/minute, which is acceptable. Apnea-hypopnea index is only 0.5, which is absolutely perfect. MEDICATIONS: 1. Simvastatin. 2. Metoprolol. 3. Lisinopril. 4. Eliquis. PHYSICAL EXAMINATION: GENERAL: A pleasant patient in no distress. VITAL SIGNS: BP 136/79, HR 76, RR 17, height 5 feet 10 inches, weight 206.8, body mass index 29.5, temperature 98.3, oxygen saturation at room air 97%. HEENT: PERRLA, EOMI. Evaluation of oropharynx showed tongue protrudes midline. Low position of soft palate. Mallampati III. NECK: Supple. No JVD. Thyroid is not palpable. LUNGS: Clear to percussion and to auscultation. Good air exchange. No wheezing or rhonchi. HEART: S1, S2 regular by auscultation. ABDOMEN: Soft and nontender. Bowel sounds are present. No organomegaly. EXTREMITIES: No clubbing or cyanosis. STEAM ROOM ATTENDANT: Awake, alert, and oriented X3. Cranial nerves 2 to 7 intact. There is no fasciculation or atrophy. noted. No focal deficits observed. IMPRESSION: 1. Complex sleep apnea-hypopnea syndrome. The patient demonstrated practically 100% compliance with treatment, benefitting from treatment with BiPAP on ST mode. 2. History of atrial fibrillation. 3. Hypertension. 4. Hyperlipidemia. PLAN: 1. Patient will continue to use BiPAP ST mode equipment every night for the whole night. 2. Sleep hygiene with regular time in bed for 7-1/2 to 8 hours. 3. No driving if feeling any sleepiness. 4. We will maintain all necessary prescriptions for all supplies, including mask, tube, filters. At present the patient is using a [employer]ear [id number] mask and heated tube. 5. Follow-up visit in one year, or earlier if the patient has any problems. Thank you very much for allowing me to participate in the management of your patient. Sincerely, Freeman Lo MD, PhD, FAASM Diplomat of [place] [employer] [place] [employer] [facility] [place] MMJOEY / ANUPAMA: [id number] /
== END | disposition home or self-care (01) ==
LOC: SLEEP 14:40
PROVIDERS: ATTEND Internal Medicine
DX: G47.39 Other sleep apnea (principal); I48.91 Unspecified atrial fibrillation; I10 Essential (primary) hypertension; E78.5 Hyperlipidemia, unspecified; Z79.02 Long term (current) use of antithrombotics/antiplatelets; Z79.899 Other long term (current) drug therapy; Z99.89 Dependence on other enabling machines and devices

== ENCOUNTER → 2018-10-05 | Outpatient (CLI) | payer MEDICARE ==
[2018-10-05 16:44] LABS: Uric Acid 6.5 mg/dL (3.7-8.7)
== END ==
LOC: LABWHC1 08:13
PROVIDERS: ATTEND Internal Medicine Rheumatology
DX: M10.9 Gout, unspecified (principal)
CPT/HCPCS: 36415; 82565; 84450; 84460; 84520; 84550

== ENCOUNTER → 2018-11-28 | Outpatient (CLI) | payer MEDICARE ==
[2018-11-28 17:53] LABS: African American GFR (CKD) 61.9 (60.0-200.0); Uric Acid 6.1 mg/dL (3.7-8.7)
== END | disposition home or self-care (01) ==
LOC: LABWHC1 06:41
PROVIDERS: ATTEND Internal Medicine Rheumatology
DX: M10.9 Gout, unspecified (principal)
CPT/HCPCS: 36415; 82565; 84450; 84460; 84520; 84550

== ENCOUNTER → 2019-01-18 | Outpatient (CLI) | payer MEDICARE ==
[2019-01-18 12:05] LABS: African American GFR (CKD) 61.9 (60.0-200.0)
== END | disposition home or self-care (01) ==
LOC: LABWHC1 07:48
PROVIDERS: ATTEND Internal Medicine Rheumatology
DX: M10.9 Gout, unspecified (principal)
CPT/HCPCS: 36415; 82565; 84450; 84460; 84520; 84550

== ENCOUNTER 2019-02-27 23:00 | Emergency (ER) | payer MEDICARE ==
[2019-02-28] MEDS ORDERED: ONDANSETRON 4 MG/2 ML VIAL IVP STA (00:05)
[2019-02-28] MEDS ORDERED: SODIUM CHLORIDE 0.9% 500 ML 500 ML IV STA (00:05)
--- NOTE | 2019-02-28 00:13 | ED ---
Nausea/Vomiting/Diarrhea HPI - General Chief complaint: Nausea/Vomiting/Diarrhea Stated complaint: NVD Time Seen by Provider: 02/27/19 23:23 Source: patient Mode of arrival: ambulatory Limitations: no limitations - History of Present Illness MD complaint: nausea, vomiting, diarrhea Onset/Timin -: hour(s) Description of Vomiting: watery Description of Diarrhea: water Associated Abdominal Pain: No Improves with: none Worsens with: none Associated Symptoms: denies other symptoms - Related Data Home Medications Medication Instructions Recorded Confirmed Aloe Vera 5,000 mg PO DAILY 07/21/15 07/20/18 Flaxseed [Flaxseed Oil] 1,000 mg PO DAILY 07/21/15 07/20/18 Maple-3 Fatty Acids/Fish Oil [Fish 1 cap PO DAILY 07/21/15 07/20/18 Oil 1,000 mg Softgel] Simvastatin 10 mg PO HS 07/21/15 07/20/18 Ubidecarenone [Co Q-10] 200 mg PO DAILY 07/21/15 07/20/18 Alpha Lipoic Acid 300 mg PO DAILY 02/17/17 07/20/18 Cholecalciferol [Vitamin D3 (25 5,000 unit PO DAILY 02/17/17 07/20/18 Mcg = 1000 Iu)] Saw [place] 500 mg PO DAILY 02/28/17 07/20/18 Allopurinol [Zyloprim] 100 mg PO DAILY 07/11/18 07/20/18 Colchicine 0.6 mg PO Q48H 07/11/18 07/20/18 Multivit-Min/Folic/Vit K/Lycop 1 each PO DAILY 07/11/18 07/20/18 [Men's Multivitamin Tablet] Metoprolol Succinate (ER) [Toprol 50 mg PO DAILY 07/18/18 07/20/18 XL] Previous Rx's Medication Instructions Recorded Apixaban [Eliquis] 5 mg PO BID #0 10/17/16 Nitroglycerin Sl Tabs [Nitrostat] 0.4 mg SUBLINGUAL Q5M PRN #21 tab 03/01/17 Ondansetron Odt [Zofran ODT] 4 mg PO Q8HR PRN #10 tab 02/28/19 Allergies Allergy/AdvReac Type Severity Reaction Status Date / Time No Known Allergies Allergy Verified 02/27/19 23:19 Review of Systems ROS Statement: Those systems with pertinent positive or pertinent negative responses have been documented in the HPI. ROS Other: All systems not noted in ROS Statement are negative. Constitutional: Denies: fever, chills Respiratory: Denies: cough, dyspnea Cardiovascular: Denies: chest pain, palpitations, syncope Gastrointestinal: Reports: nausea, vomiting, diarrhea. Denies: abdominal pain, constipation, hematemesis, melena, hematochezia Genitourinary: Denies: dysuria, hematuria Musculoskeletal: Denies: back pain Skin: Denies: rash Neurological: Denies: headache, weakness, numbness Past Medical History Past Medical History: Atrial Fibrillation, Cancer, Hyperlipidemia, Hypertension, Osteoarthritis (OA), Sleep Apnea/CPAP/BIPAP Additional Past Medical History / Comment(s): Gout, Hx of skin cancer, C-Pap machine., has only 1 kidney (Hx of left nephrectomy -non cancerous tumor)., states positive cologuard . History of Any Multi-Drug Resistant Organisms: None Reported Past Surgical History: Ablation, Cardiac Ablation, Hernia Repair, Tonsillectomy Additional Past Surgical History / Comment(s): lt nephrectomy r/t noncancerous tumor, cataracts, cardiac ablation x3. Past Anesthesia/Blood Transfusion Reactions: No Reported Reaction Past Psychological History: No Psychological Hx Reported Smoking Status: Never smoker Past Alcohol Use History: None Reported Past Drug Use History: None Reported - Past Family History Mother Additional Family Medical History / Comment(s): lupus Father Additional Family Medical History / Comment(s): heart problems Daughter(s) Family Medical History: Cancer Additional Family Medical History / Comment(s): melanoma General Exam Limitations: no limitations General appearance: alert, in no apparent distress Head exam: Present: atraumatic, normocephalic Eye exam: Present: normal appearance. Absent: scleral icterus, conjunctival injection ENT exam: Present: normal oropharynx Respiratory exam: Present: normal lung sounds bilaterally. Absent: respiratory distress, wheezes, rales, rhonchi, stridor Cardiovascular Exam: Present: regular rate, normal rhythm, normal heart sounds. Absent: systolic murmur, diastolic murmur, rubs, gallop GI/Abdominal exam: Present: soft. Absent: distended, tenderness, guarding, rebound, rigid, mass, pulsatile mass, hernia Extremities exam: Present: normal inspection, normal capillary refill Back exam: Absent: CVA tenderness (R), CVA tenderness (L) Neurological exam: Present: alert Skin exam: Present: warm, dry, intact, normal color. Absent: rash Course Vital Signs 02/27/19 02/28/19 23:10 00:25 Temperature 97.6 F 97.9 F Pulse Rate 81 79 Respiratory 20 18 Rate Blood Pressure 112/71 120/78 O2 Sat by Pulse 99 99 Oximetry Medical Decision Making - Lab Data Result diagrams: 02/27/19 23:30 02/27/19 23:30 Lab Results 02/27/19 02/27/19 02/27/19 Range/Units 23:30 23:30 23:30 WBC 15.6 H (3.8-10.6) k/uL RBC 4.44 (4.30-5.90) m/uL Hgb 15.0 (13.0-17.5) gm/dL Hct 44.5 (39.0-53.0) % MCV 100.2 H (80.0-100.0) fL MCH 33.8 (25.0-35.0) pg MCHC 33.7 (31.0-37.0) g/dL RDW 13.1 (11.5-15.5) % Plt Count 209 (150-450) k/uL Neutrophils % 88 % Lymphocytes % 6 % Monocytes % 4 % Eosinophils % 1 % Basophils % 0 % Neutrophils # 13.7 H (1.3-7.7) k/uL Lymphocytes # 0.9 L (1.0-4.8) k/uL Monocytes # 0.7 (0-1.0) k/uL Eosinophils # 0.1 (0-0.7) k/uL Basophils # 0.0 (0-0.2) k/uL Sodium 143 (137-145) mmol/L Potassium 4.2 (3.5-5.1) mmol/L Chloride 109 H (98-107) mmol/L Carbon Dioxide 25 (22-30) mmol/L Anion Gap 9 mmol/L BUN 32 H (9-20) mg/dL Creatinine 1.56 H (0.66-1.25) mg/dL Est GFR (CKD-EPI)AfAm 50 (>60 ml/min/1.73 sqM) Est GFR (CKD-EPI)NonAf 43 (>60 ml/min/1.73 sqM) Glucose 99 (74-99) mg/dL Calcium 9.5 (8.4-10.2) mg/dL Total Bilirubin 0.4 (0.2-1.3) mg/dL AST 26 (17-59) U/L ALT 26 (21-72) U/L Alkaline Phosphatase 73 (38-126) U/L Total Protein 6.7 (6.3-8.2) g/dL Albumin 4.1 (3.5-5.0) g/dL Amylase 45 (30-110) U/L Lipase 58 (23-300) U/L Urine Color Yellow Urine Appearance Clear (Clear) Urine pH 6.0 (5.0-8.0) Ur Specific [place] 1.015 (1.001-1.035) Urine Protein Negative (Negative) Urine Glucose (UA) Negative (Negative) Urine Ketones Negative (Negative) Urine Blood Trace H (Negative) Urine Nitrite Positive (Negative) Urine Bilirubin Negative (Negative) Urine Urobilinogen <2.0 (<2.0) mg/dL Ur Leukocyte Esterase Moderate H (Negative) Urine RBC 9 H (0-5) /hpf Urine WBC 49 H (0-5) /hpf - EKG Data -: EKG Interpreted by [place] EKG shows normal: sinus rhythm (With one PVC, rate 78 bpm), axis (Normal), intervals (VA interval 208 ms, QRS duration 110 ms, QTC 449 ms), QRS complexes (Incomplete left bundle-branch block.) Rate: normal (Rate 78 bpm) Interpretation: LVH (Bivoltage criteria) Disposition Clinical Impression: Vomiting and diarrhea Disposition: HOME SELF-CARE Condition: Good Instructions (If sedation given, give patient instructions): Acute Nausea and Vomiting (ED) Prescriptions: Ondansetron Odt [Zofran ODT] 4 mg PO Q8HR PRN #10 tab PRN Reason: Nausea Is patient prescribed a controlled substance at d/c from ED?: No Referrals: Arron Alba MD [Primary Care Provider] - 1-2 days
[2019-02-28 00:22] LABS: Appearance,Urine Clear (Clear); Bilirubin,Urine Negative (Negative); Blood,Urine Trace (Negative); Color,Urine Yellow; Glucose,Urine (UA) Negative (Negative); Ketones,Urine Negative (Negative); Leukocyte Esterase,Urine Moderate (Negative); Nitrite,Urine Positive (Negative); Protein,Urine Negative (Negative); RBC,Urine 9 /hpf (0-5); Specific Gravity,Urine 1.015 (1.001-1.035); Urobilinogen,Urine <2.0 mg/dL (<2.0); WBC,Urine 49 /hpf (0-5)
[2019-02-28 00:24] LABS: Albumin 4.1 g/dL (3.5-5.0); Calcium 9.5 mg/dL (8.4-10.2); Potassium 4.2 mmol/L (3.5-5.1); Total Bilirubin 0.4 mg/dL (0.2-1.3); Total Protein 6.7 g/dL (6.3-8.2)
[2019-02-28 00:29] VITALS: PULSE 79; RESP 18; TEMP 97.9
[2019-02-28 00:29] LABS: Basophils % (A) 0 %; Eosinophils # (A) 0.1 k/uL (0-0.7); Eosinophils % (A) 1 %; HCT 44.5 % (39.0-53.0); Lymphocytes # (A) 0.9 k/uL (1.0-4.8); Lymphocytes % (A) 6 %; MCH 33.8 pg (25.0-35.0); MCHC 33.7 g/dL (31.0-37.0); MCV 100.2 fL (80.0-100.0); Mean Platelet Volume 7.6; Monocytes # (A) 0.7 k/uL (0-1.0); Monocytes % (A) 4 %; Neutrophils # (A) 13.7 k/uL (1.3-7.7); Neutrophils % (A) 88 %; Platelet Count 209 k/uL (150-450); RBC 4.44 m/uL (4.30-5.90); RDW 13.1 % (11.5-15.5); WBC 15.6 k/uL (3.8-10.6)
[2019-02-28 01:50] VITALS: BP 126/74
== END 2019-02-28 01:50 | disposition home or self-care (01) ==
LOC: EC 23:00
DX: R11.2 Nausea with vomiting, unspecified (principal); R19.7 Diarrhea, unspecified; I48.91 Unspecified atrial fibrillation; E78.5 Hyperlipidemia, unspecified; I10 Essential (primary) hypertension; M10.9 Gout, unspecified; G47.30 Sleep apnea, unspecified; Z79.899 Other long term (current) drug therapy; Z85.828 Personal history of other malignant neoplasm of skin; Z86.018 Personal history of other benign neoplasm; Z90.5 Acquired absence of kidney; Z98.890 Other specified postprocedural states; Z99.89 Dependence on other enabling machines and devices
CPT/HCPCS: 36415; 93005; 80053; 82150; 83690; 85025; 81001; 99284; 96374; J2405

== ENCOUNTER → 2019-03-09 | Outpatient (CLI) | payer MEDICARE ==
--- NOTE | 2019-03-09 13:41 | CT ---
EXAMINATION TYPE: CT abdomen pelvis wo con DATE OF EXAM: 03/09/2019 HISTORY: Umbilical bulge per patient. Unspecified abdominal pain per order. CT DLP: 1055 mGycm. Automated Exposure Control for Dose Reduction was Utilized. TECHNIQUE: CT scan of the abdomen and pelvis is performed without oral or IV contrast. COMPARISON: Renal ultrasound from 2015 FINDINGS: Within the limitations of a non-contrast study, the following observations are made. LUNG BASES: Mild bibasilar linear scarring and/or atelectasis. LIVER/GB: Some heterogeneous hypodense masses in the hepatic dome. For reference suspect 2 adjacent m asses axial image 11 with largest measuring 3.4 x 3.0 cm axial image 11. Liver is overall somewhat sm all in size. Gallbladder is contracted PANCREAS: No significant abnormality is seen. SPLEEN: No significant abnormality is seen. ADRENALS: No significant abnormality is seen. KIDNEYS: Left kidney is surgically absent. Right kidney shows approximately 10 scattered calculi sandie uring up to 7 mm long axis coronal image 61. Mild to minimal right-sided hydronephrosis is seen. No o bstructing ureteral calculi. There is distended bladder extending nearly to level of umbilicus with l eft sided large outpouching or diverticulum thought present though communication with bladder is not well visualized. Differential would include lymphocele and other thin-walled fluid collections. Lesio n is isodense to bladder thus large diverticulum is strongly favored. Opening likely present on axial image 100. BOWEL: Slightly redundant sigmoid colon with prominent diverticulosis. Some scattered diverticula in the left colon. No CT evidence for acute diverticulitis. Nondigested pill dependently in the cecum is seen axial image 69. No suspicious small or large bowel dilatation. GENITAL ORGANS: Enlarged prostate gland consistent with BPH with central calcifications bulging on bl adder base. LYMPH NODES: No greater than 1cm abdominal or pelvic lymph nodes are appreciated. OSSEOUS STRUCTURES: No significant abnormality is seen. OTHER: There is narrow neck hernia containing fat and tiny mesenteric vessels axial image 46 roughly 6 cm superior to the umbilicus coronal image 14 just left of midline. IMPRESSION: 1. Narrow Neck ventral wall hernia containing fat and tiny mesenteric vessels superior to the umbilic us may be accounting for patient's symptoms of palpable bulge. 2. Enlarged prostate gland consistent with BPH. Distended bladder presumed related to outlet obstruct ion from BPH. This is likely causing mild to minimal right-sided hydronephrosis. Multiple nonobstruct ing right renal calculi noted. 3. Nonspecific hypodense lesions in the hepatic dome. Advise follow-up liver protocol contrast-enhanc ed CT or MRI to better evaluate and characterize as solid masses or neoplasm cannot be excluded.
== END | disposition home or self-care (01) ==
LOC: RADCTMAIN 13:05
PROVIDERS: ATTEND Family Medicine
DX: N40.1 Benign prostatic hyperplasia with lower urinary tract symptoms (principal); N20.0 Calculus of kidney; K76.9 Liver disease, unspecified; R93.5 Abnormal findings on diagnostic imaging of other abdominal regions, including retroperitoneum
CPT/HCPCS: 74176

== ENCOUNTER → 2019-05-15 | Outpatient (CLI) | payer MEDICARE ==
[2019-05-15 12:01] LABS: African American GFR (CKD) 56.6 (60.0-200.0); Non-African American GFR(CKD) 48.8 (60.0-200.0); Uric Acid 4.9 mg/dL (3.7-8.7)
== END | disposition home or self-care (01) ==
LOC: LABWHC1 07:20
PROVIDERS: ATTEND Internal Medicine Rheumatology
DX: M10.9 Gout, unspecified (principal)
CPT/HCPCS: 36415; 82565; 84450; 84460; 84520; 84550

== ENCOUNTER → 2019-06-12 | Outpatient (CLI) | payer MEDICARE ==
[2019-06-12 08:51] LABS: HCT 45.5 % (39.0-53.0); HGB 15.1 gm/dL (13.0-17.5); MCH 33.8 pg (25.0-35.0); MCHC 33.2 g/dL (31.0-37.0); MCV 101.9 fL (80.0-100.0); Macrocytosis Slight; Mean Platelet Volume 8.9; Platelet Count 160 k/uL (150-450); RBC 4.47 m/uL (4.30-5.90); RDW 13.2 % (11.5-15.5); WBC 5.3 k/uL (3.8-10.6)
[2019-06-12 09:04] LABS: Potassium 4.9 mmol/L (3.5-5.1)
== END | disposition home or self-care (01) ==
LOC: LABPAT 07:51
PROVIDERS: ATTEND Internal Medicine Clinical Cardiac Electrophysiology
DX: Z01.812 Encounter for preprocedural laboratory examination (principal); I49.5 Sick sinus syndrome; D86.85 Sarcoid myocarditis
CPT/HCPCS: 36415; 80051; 82565; 82947; 84520; 85027

== ENCOUNTER → 2019-06-19 | Outpatient (CLI) | payer MEDICARE ==
--- NOTE | 2019-06-19 07:59 | CT ---
EXAMINATION TYPE: CT chest wo con DATE OF EXAM: 06/19/2019 COMPARISON: None HISTORY: Sarcoid myocarditis CT DLP: 365.[address] of the chest was performed with lung and mediastinal window settings submitted. The la ck of contrast limits evaluation of the vascular, mediastinal and parenchymal structures including th e upper abdomen. LUNGS: The lungs are clear and free of infiltrate. No atelectasis. No pulmonary nodule or mass is de tected. No pleural effusion. No CT evidence of interstitial lung disease. MEDIASTINUM/BENITA: Left thyroid nodule extends into the superior mediastinum and measures 4.7 x 2.3 c m. Thoracic aorta is of normal caliber with limited evaluation given lack of contrast. The heart is mildly enlarged. No evidence for mediastinal mass. No lymph nodes greater than 1cm. UPPER ABDOMEN: Left-sided nephrectomy change. Multiple nonobstructing right-sided nephrolithiasis. Hy poattenuating lesions within the dome of the liver poorly characterized on this nonenhanced study. OTHER: No significant other abnormality. IMPRESSION: 1. Mild cardiomegaly. 2.Hypoattenuating lesions within the dome of the liver poorly characterized on this nonenhanced study . Consider further evaluation with ultrasound and/or contrast CT of the abdomen.
== END | disposition home or self-care (01) ==
LOC: RADCTMAIN 07:13
PROVIDERS: ATTEND Internal Medicine Critical Care Medicine
DX: I51.7 Cardiomegaly (principal); D86.85 Sarcoid myocarditis
CPT/HCPCS: 36415; 71250; 82164

== ENCOUNTER 2019-06-20 05:46 | Day surgery (SDC) | payer MEDICARE ==
[2019-06-15 15:12] VITALS: BMI 28.5
[~2019-06-20 05:46] MED LIST changes: -LACTATED RINGERS 1,000 ML IV SCH; +LIDOCAINE 1% 20 ML VIAL (10MG/ML) FOR IV START INTRADERMA PRN
[2019-06-20] MEDS: SODIUM CHLORIDE 0.9% 1,000 ML IV SCH ×2 (06:35→13:20)
[2019-06-20] MEDS ORDERED: ceFAZolin 1,000 MG in SODIUM CHLORIDE 0.9% IRRIGATIO 250 ML IRRIGATION ONE (07:00)
[2019-06-20] MEDS ORDERED: fentaNYL (PF) 50 MCG/ML 2 ML AMP ONE ×2 (07:32→11:08)
[2019-06-20] MEDS ORDERED: PROPOFOL 10 MG/ML 20 ML VIAL IV ONE (07:32)
[2019-06-20] MEDS ORDERED: MIDAZOLAM 2 MG/2 ML VIAL ONE (07:32)
[2019-06-20] MEDS ORDERED: IOPAMIDOL-370 50ML BTL MISCELLANE ONE (07:43)
[2019-06-20] MEDS ORDERED: LIDOCAINE 1% INJ 10MG/ML (20 ML MDV) ONE ×2 (07:56→11:07)
[2019-06-20] MEDS ORDERED: LIDOCAINE 1% INJ 10MG/ML (20 ML MDV) SQ ONE ×2 (08:12→08:18)
[2019-06-20] MEDS ORDERED: HYDROcodone/APAP 5-325MG 1 EACH TAB PO PRN (09:20)
--- NOTE | 2019-06-20 10:13 | CE ---
CARDIAC ELECTROPHYSIOLOGY REPORT Landen Ceballos is a 73-year-old male patient who has had atrial tachycardia and atrial fibrillation in the past and subsequently about a year later started experiencing ventricular arrhythmias and very frequent PVCs and nonsustained ventricular tachycardia. Coronary angiography was normal. The LV function was normal. Cardiac MRI was performed and showed scarring, nonischemic distribution of delayed enhancement suggestive of chronic myocarditis and sarcoidosis. A PET FDG was performed and was again suggestive of a cardiac sarcoidosis. By volumetric analysis, he was considered a high risk based upon his cardiac MRI and PET FDG for cardiovascular events and sudden on account of scarring in his myocardium with a seemingly normal LV function. He was brought in for dual-chamber ICD implantation for further management of sudden cardiac risk in the future with underlying cardiac sarcoidosis. He does not have any pulmonary sarcoidosis. Patient was brought to the EP lab in a fasting state. Written informed consent was obtained prior to the procedure. The left shoulder area was prepped and draped as per protocol and 1% lidocaine was used for local anesthesia. A 4 cm incision was made parallel to the deltopectoral groove. About 1.5 cm medial to it, the incision was carried down to the level of the pectoralis muscle. A subfascial pocket was made hemostasis was assured. The left axillary vein was accessed at 2 separate points under fluoroscopy and via appropriately-sized introducer sheaths 2 leads were positioned the right heart. The atrial lead details: Pacing threshold 1.5 V at 0.5 milliseconds, P waves are 1.3 mV, Pacing impedance [address] was a [employer]. Model #2088TC, 52 cm in length and serial #[id number]. This was screwed in the right atrial appendage. The RV lead was a [employer], model #KBE190E-08, serial #[id number]. The pacing threshold 0.5 V at 0.5 milliseconds. R-waves 8.8 mV. Pacing impedance of 1300 ohms. High-voltage impedance 71 ohms. The leads were secured to the underlying pectoralis muscle using 2 nonabsorbable sutures. Pocket was irrigated with antibiotic solution. Leads were connected to the generator ([employer], model #2411-36 Q ICD, serial #[id number]. Leads and generator were then placed in the subfascial pocket. The wound was closed in 3 layers and dressed per protocol. The device was programmed to DDD mode with VIP mode turned on. After DFT testing, sensitivity was reprogrammed to normal settings. MADIT RIT programming with appropriate antitachycardia pacing, cardioversion defibrillation programmed. DFT TESTING UNDER ANESTHESIA: A DC fibber shock protocol was used to induce ventricular fibrillation. This was adequately and appropriately detected at least sensitivity and successfully internally defibrillated with a 10-joule shock. The charge time was 1.8 seconds and shock impedance 71 ohms. No post shock noise. RESULT: Successful dual-chamber ICD implantation for management of sudden cardiac risk in this gentleman with seemingly isolated cardiac sarcoidosis proven with cardiac MRI and PET FDG with significant volume of myocardial fibrosis indicative of high risk for future heart cardiovascular events suggest cardiac . The patient tolerated the procedure well without any acute complications. MMODL / IJN: [id number] /
--- NOTE | 2019-06-20 10:16 | LTR ---
June 20, 2019 Re: Landen Ceballos Dear Dr. Alba: Landen Ceballos underwent dual-chamber ICD implantation for cardiac sarcoidosis with abnormal cardiac MRI and abnormal PET FDG. He does not have pulmonary sarcoidosis. He will continue his current medications including Eliquis since he also has atrial fibrillation. He tolerated the procedure well without any acute complications. Thank you for entrusting me in the care of your patient. Warm regards. Sincerely, Adan Jauregui MD MMCLEMENTINEL / DENISAN: [id number] /
[2019-06-20] MEDS ORDERED: HEPARIN SODIUM 1,000 UN/ML (10ML VL) ONE (11:07)
[2019-06-20] MEDS ORDERED: VERAPAMIL 2.5 MG/ML 2 ML AMP ONE (11:07)
[2019-06-20] MEDS ORDERED: ACETAMINOPHEN IV (For NPO) 1,000 MG in EMPTY BAG 1 BAG IVPB ONE (12:00)
[2019-06-20] MEDS: LACTATED RINGERS 1,000 ML IV SCH (13:19)
[2019-06-20] MEDS: ACETAMINOPHEN TAB 325 MG TAB PO PRN ×2 (15:32→21:36)
[2019-06-20] MEDS: APIXABAN 5 MG TAB PO SCH (20:42)
[2019-06-20] MEDS ORDERED: ATORVASTATIN 10 MG TAB PO SCH (21:00)
[2019-06-20] MEDS ORDERED: ALLOPURINOL 300 MG TAB PO SCH (21:00)
[2019-06-21] MEDS: SODIUM CHLORIDE 0.9% 1,000 ML IV SCH ×2 (00:10)
[2019-06-21] MEDS: LACTATED RINGERS 1,000 ML IV SCH (00:10)
[2019-06-21 03:37] VITALS: RESP 18
[2019-06-21] MEDS: APIXABAN 5 MG TAB PO SCH (07:54)
--- NOTE | 2019-06-21 08:30 | XR ---
EXAMINATION TYPE: XR chest 2V DATE OF EXAM: 06/21/2019 COMPARISON: 02/23/2018 HISTORY: Lead placement check TECHNIQUE: Frontal and lateral views of the chest are obtained. FINDINGS: Dual lead left-sided cardiac device is seen with a ventricular lead and maria luisa lead. No pos tprocedural pneumothorax. Surgical clips in the left para midline upper abdomen. Lungs are well aerat ed. IMPRESSION: Interval insertion of a left-sided dual lead cardiac device is described above. No postp rocedural pneumothorax.
[2019-06-21] MEDS ORDERED: METOPROLOL SUCCINATE (ER) 25 MG TAB.ER.24H PO SCH (09:00)
[2019-06-21 11:13] VITALS: BP 164/94; PULSE 69; TEMP 97.4
[2019-06-21] MEDS ORDERED: METOPROLOL SUCCINATE (ER) 25 MG TAB.ER.24H PO STA (13:51)
--- NOTE | 2019-06-21 14:29 | P.DS ---
Providers Attending physician: Adan Jauregui Primary care physician: Arron Jones [facility] Course: Patient is a 73-year-old male with a past medical history of atrial tachycardia, atrial fibrillation, hypertension, NSVT and frequent PVCs who presented for dual-chamber ICD implantation. Patient was found to have ventricular arrhythmias and frequent PVCs and underwent workup including echocardiogram which showed normal LV function, and coronary angiogram showing no occlusive coronary artery disease. He underwent cardiac MRI and was found to have delayed enhancement which was considered high risk for cardiovascular events and then cardiac and therefore an ICD was recommended. Yesterday he underwent successful implantation of dual-chamber ICD. He has done well overnight. Patient seen and examined resting in bed. States his pain has been well- controlled. Denies any chest pain, shortness of breath, dizziness, palpitations or syncope. He has been up walking around and has not had any dizziness. Device interrogation showed normally functioning device Chest x-ray showed no postprocedural pneumothorax Most recent labs reviewed, WBC 5.3, hemoglobin 15.1, platelets 160, potassium 4.9, BUN 22, creatinine 1.29 Patient is afebrile, pulse in the 60s, respirations 18, blood pressure 164/94, oxygen saturation 98% on room air Patient seen and examined resting in bed, in no acute distress Lungs clear to auscultation bilaterally Heart is regular, no audible murmurs Dressing clean dry and intact Impression Abnormal cardiac MRI suggestive of cardiac sarcoidosis status post dual-chamber ICD implantation for prevention of sudden cardiac Atrial tachycardia Paroxysmal Atrial fibrillation, on anticoagulation with eliquis NSVT Hypertension, blood pressures been elevated Dyslipidemia Plan Increase metoprolol to 100 mg daily Continue eliquis Continue Lipitor He may be discharged home and follow-up in the device clinic in 5 days Plan - Discharge Summary Discharge Rx Participant: Yes New Discharge Prescriptions: New Metoprolol Succinate (ER) [Toprol XL] 100 mg PO DAILY #90 tab Continue Simvastatin 10 mg PO HS Apixaban [Eliquis] 5 mg PO BID #0 Cholecalciferol [Vitamin D3 (25 Mcg = 1000 Iu)] 5,000 unit PO DAILY Nitroglycerin Sl Tabs [Nitrostat] 0.4 mg SUBLINGUAL Q5M PRN #21 tab PRN Reason: Chest Pain Allopurinol [Zyloprim] 300 mg PO HS Cyanocobalamin (Vitamin B-12) [Vitamin B-12] 1,000 mcg PO DAILY Discontinued Metoprolol Succinate (ER) [Toprol XL] 75 mg PO DAILY Discharge Medication List Simvastatin 10 mg PO HS 07/21/15 [History] Apixaban [Eliquis] 5 mg PO BID #0 10/17/16 [Rx] Cholecalciferol [Vitamin D3 (25 Mcg = 1000 Iu)] 5,000 unit PO DAILY 02/17/17 [History] Nitroglycerin Sl Tabs [Nitrostat] 0.4 mg SUBLINGUAL Q5M PRN #21 tab 03/01/17 [Rx] Allopurinol [Zyloprim] 300 mg PO HS 07/11/18 [History] Cyanocobalamin (Vitamin B-12) [Vitamin B-12] 1,000 mcg PO DAILY 06/15/19 [ History] Metoprolol Succinate (ER) [Toprol XL] 100 mg PO DAILY #90 tab 06/21/19 [Rx] Follow up Appointment(s)/Referral(s): Adan Jauregui MD [STAFF PHYSICIAN] - 1 Week (Device Clinic: June 27, 2019 @ 3:[address] Jauregui: August 31, 2019 @ 2:45 pm) Activity/Diet/Wound Care/Special Instructions: PATIENT EDUCATION MATERIAL Instructions following a heart rhythm device implant. 1. Keep dressing DRY for 5 DAYS. You may cover the area with Saran or Cling Wrap, prior to a shower. 2. The dressing will be removed in the Device Clinic at [facility]. Absorbable sutures were used to close the wound. 3. Avoid raising the left arm above the shoulder level. 4 week restriction 4. Avoid arm movements, like backscratching, rubbing the head, or pulling on a cord. 4 weeks restriction 5. Gentle range of motion movements of the shoulder, closest to the incision should be performed to avoid a frozen shoulder. (Pendulum exercises of the shoulder) 6. The opposite arm may be used freely. 7. Avoid driving for 7 days. 8. Avoid activities such as golfing, swimming, weed whacking, lifting more than 10 pounds weight, bowling, gymnastics and weight training/lifting. (6 weeks restriction) 9. Activities such as wood chopping with an axe, pull-ups in the gymnasium, power lifting, arc-welding, being close to home induction cooktops will always be a problem. 10. Arm sling is only a reminder not to raise the arm above the head. You do not need to keep the arm completely immobilized. Your free to move the arm and use it and for normal activities. In case of any problems, please call [facility], Percy Chao, @ [phone], Attention: Device Clinic Device clinic follow-up in 5 days Follow-up with Dr. Jauregui in 3-4 months No changes in medications Discharge Disposition: HOME SELF-CARE
[2019-06-22] MEDS ORDERED: METOPROLOL SUCCINATE (ER) 100 MG TAB.ER.24H PO SCH (09:00)
== END 2019-06-21 15:02 | disposition home or self-care (01) ==
LOC: CATHEP 05:46 → 1SOBS 11:52 → CATHEP 06-21 15:02
PROVIDERS: ATTEND Internal Medicine Clinical Cardiac Electrophysiology
DX: I49.3 Ventricular premature depolarization (principal); I47.1 Supraventricular tachycardia; I42.9 Cardiomyopathy, unspecified; D86.89 Sarcoidosis of other sites; I48.0 Paroxysmal atrial fibrillation; I48.92 Unspecified atrial flutter; I12.9 Hypertensive chronic kidney disease with stage 1 through stage 4 chronic kidney disease, or unspecified chronic kidney disease; N18.3 Chronic kidney disease, stage 3 (moderate); Z90.5 Acquired absence of kidney; E78.5 Hyperlipidemia, unspecified; M10.9 Gout, unspecified; I49.5 Sick sinus syndrome; M19.90 Unspecified osteoarthritis, unspecified site; G47.33 Obstructive sleep apnea (adult) (pediatric); Z99.89 Dependence on other enabling machines and devices; Z79.01 Long term (current) use of anticoagulants; Z79.899 Other long term (current) drug therapy
CPT/HCPCS: 33249; 71046; C1769 ×3; C1892 ×2; C1898; C1721; C1777; J2250; J0690 ×3; J2001; J3010; J2704; Q9967

== ENCOUNTER → 2019-12-11 | Outpatient (CLI) | payer MEDICARE ==
[2019-12-11 16:30] LABS: African American GFR (CKD) 56.2 (60.0-200.0); Non-African American GFR(CKD) 48.5 (60.0-200.0); Uric Acid 5.1 mg/dL (3.7-8.7)
== END | disposition home or self-care (01) ==
LOC: LABWHC1 07:39
PROVIDERS: ATTEND Internal Medicine Rheumatology
DX: M10.9 Gout, unspecified (principal)
CPT/HCPCS: 36415; 82565; 84450; 84460; 84520; 84550

== ENCOUNTER → 2020-06-24 | Outpatient (CLI) | payer MEDICARE ==
[2020-06-24 15:04] LABS: African American GFR (CKD) 61.4 (60.0-200.0); Uric Acid 4.8 mg/dL (3.7-8.7)
== END | disposition home or self-care (01) ==
LOC: LABWHC1 08:03
PROVIDERS: ATTEND Internal Medicine Rheumatology
DX: M10.9 Gout, unspecified (principal)
CPT/HCPCS: 36415; 82565; 84450; 84460; 84520; 84550

== ENCOUNTER → 2020-09-04 | Outpatient (CLI) | payer MEDICARE ==
--- NOTE | 2020-09-04 13:20 | US ---
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 GLAND SIZE: Right Lobe: 5.2 x 1.7 x 1.8 cm Overall Parenchyma: heterogenous Left Lobe: 5.9 x 2.0 x 2.4 cm Overall Parenchyma: heterogeneous Isthmus Thickness: 0.3 cm NODULES RIGHT: # of nodules measured on right: 2 1. 2.0 X 1.2 x 1.5 cm, mid lateral, solid or almost completely solid, hypoechoic nodule, which is w ider than tall, with smooth margins, without echogenic foci. Prior size: 2.0 x 1.2 x 1.5 cm 2. 1.0 X 0.9 x 1.0 cm, lower mid, solid or almost completely solid, isoechoic nodule, which is wide r than tall, with ill-defined margins, without echogenic foci. Prior size: 0.8 x 0.7 x 0.8 cm LEFT: # of nodules measured on left: 1 1. 1.6 X 1.1 x 1.5 cm, upper mid, solid or almost completely solid, isoechoic nodule, which is wide r than tall, with ill-defined margins, with echogenic foci. Prior size: 1.8 x 1.1 x 1.3 cm ISTHMUS: # of nodules measured in the isthmus: 0 Bilateral neck scanned, no evidence of lymphadenopathy. Enlarged heterogeneous gland with multiple bilateral nodules with largest described above. IMPRESSION: 1. Large right thyroid nodule present previously. Follow-up in 2 years is recommended. 2017 ACR TI-RADS LEVEL: TR-RADS 3 - Mildly Suspicious: Follow if > 1.5 cm, FNA if > 2.5 cm *Highest TI-RADS level nodule reported
--- NOTE | 2020-09-05 12:47 | US ---
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 TECHNIQUE: Multiple sonographic images of the right upper quadrant are obtained. FINDINGS: EXAM MEASUREMENTS: Liver Length: 14.8 cm Gallbladder Wall: 0.3 cm CBD: 0.4 cm Right Kidney: 11.9 x 6.2 x 5.1 cm Pancreas: Only a small portion of the pancreatic neck is seen. Remainder is obscured by bowel gas sh adowing. Liver: Limited intercostal scans. 3.5 x 2.7 x 3.2cm isoechoic lesion seen in dome of liver, 1.6 x 1. 6 x 1.5cm echogenic lesion seen right lobe. Both of these are relatively unchanged from 07/02/2019. Gallbladder: limited visualization, 0.4cm hyperechoic non mobile foci along wall Evidence for sonographic Richardson's sign: no CBD: wnl Right Kidney: multiple echogenic foci seen with largest measuring 0.5cm. No hydronephrosis. IMPRESSION: 1. 2 hepatic masses measuring 3.5 and 1.6 cm remain unchanged back to 07/02/2019. Suspect underlying h emangiomas. Continued annual surveillance could be performed. Alternatively, definitive characterizat ion can be performed with dynamic contrast-enhanced liver CT or MRI. 2. A 4 mm nonmobile echogenic focus along the gallbladder wall suggestive of a gallbladder wall polyp . This should be reassessed at 6 months. 3. Nonobstructive right renal calculus measuring 5 mm.
== END | disposition home or self-care (01) ==
LOC: RADUSWWP 08:16
PROVIDERS: ATTEND Internal Medicine Critical Care Medicine
DX: R16.0 Hepatomegaly, not elsewhere classified (principal); N20.0 Calculus of kidney; E04.1 Nontoxic single thyroid nodule; D86.85 Sarcoid myocarditis
CPT/HCPCS: 76536; 76705

== ENCOUNTER → 2020-12-31 | Outpatient (CLI) | payer MEDICARE ==
[2020-12-31 21:27] LABS: African American GFR (CKD) 67.2 (60.0-200.0); Uric Acid 5.1 mg/dL (3.7-8.7)
== END | disposition home or self-care (01) ==
LOC: LABWHC1 08:19
PROVIDERS: ATTEND Nurse Practitioner Family
DX: M10.9 Gout, unspecified (principal)
CPT/HCPCS: 36415; 82565; 84450; 84460; 84520; 84550

== ENCOUNTER → 2021-04-20 | Outpatient (CLI) | payer MEDICARE ==
[2021-04-20 14:49] LABS: Blood Urea Nitrogen 17.3 mg/dL (9.0-27.0); Non-African American GFR(CKD) 52.6 (60.0-200.0); Uric Acid 4.7 mg/dL (3.7-8.7)
== END | disposition home or self-care (01) ==
LOC: LABWHC1 08:01
PROVIDERS: ATTEND Nurse Practitioner Family
DX: M10.9 Gout, unspecified (principal)
CPT/HCPCS: 36415; 82565; 84450; 84460; 84520; 84550

== ENCOUNTER → 2021-05-28 | Outpatient (CLI) | payer MEDICARE ==
[2021-05-28 14:33] LABS: Basophils # (A) 0.04 X 10*3/uL (0.00-0.10); Basophils % (A) 0.7 %; Eosinophils % (A) 3.3 %; HGB 14.2 g/dL (13.0-17.0); Lymphocytes # (A) 1.19 X 10*3/uL (0.90-5.00); Lymphocytes % (A) 19.9 %; MCH 32.9 pg (27.0-32.0); MCHC 31.6 g/dL (32.0-37.0); MCV 104.4 fL (80.0-97.0); Mean Platelet Volume 11.6 fL (9.5-12.2); Monocytes # (A) 0.54 X 10*3/uL (0.20-1.00); Neutrophils # (A) 3.99 X 10*3/uL (1.80-7.70); Neutrophils % (A) 66.8 %; Platelet Count 149 X 10*3/uL (140-440); RBC 4.31 X 10*6/uL (4.40-5.60); RDW 13.4 % (11.5-14.5); WBC 5.98 X 10*3/uL (4.50-10.00)
[2021-05-28 17:26] LABS: Chol/HDL Ratio 2.48 Ratio; VLDL Calculation 12.96 mg/dL (5.00-40.00)
[2021-05-28 17:30] LABS: ALT 29 U/L (10-49); AST 24 U/L (14-35); Albumin 4.2 g/dL (3.8-4.9); Albumin/Globulin Ratio 2.33 (1.60-3.17); Alkaline Phosphatase 80 U/L (41-126); Blood Urea Nitrogen 18.2 mg/dL (9.0-27.0); Calcium 9.1 mg/dL (8.7-10.3); Carbon Dioxide 22.7 mmol/L (20.0-27.5); Chloride 109 mmol/L (96-109); Globulin 1.8 g/dL (1.6-3.3); Glucose 89 mg/dL (70-110); Non-African American GFR(CKD) 52.6 (60.0-200.0); Potassium 4.4 mmol/L (3.5-5.5); Sodium 144 mmol/L (135-145)
== END | disposition home or self-care (01) ==
LOC: LABWHC1 08:23
PROVIDERS: ATTEND Family Medicine
DX: Z12.5 Encounter for screening for malignant neoplasm of prostate (principal); Z13.220 Encounter for screening for lipoid disorders; E55.9 Vitamin D deficiency, unspecified; R53.83 Other fatigue
CPT/HCPCS: 36415; 80053; 80061; 82306; 84153; 84443; 84481; 85025

== ENCOUNTER → 2021-08-18 | Outpatient (CLI) | payer MEDICARE ==
[2021-08-18 15:07] LABS: African American GFR (CKD) 63.5 (60.0-200.0); Blood Urea Nitrogen 18.6 mg/dL (9.0-27.0); Non-African American GFR(CKD) 54.8 (60.0-200.0)
== END | disposition home or self-care (01) ==
LOC: LABWHC1 07:39
PROVIDERS: ATTEND Nurse Practitioner Family
DX: M10.9 Gout, unspecified (principal)
CPT/HCPCS: 36415; 82565; 84450; 84460; 84520; 84550

== ENCOUNTER → 2021-08-21 | Outpatient (CLI) | payer MEDICARE ==
--- NOTE | 2021-08-21 15:41 | US ---
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 f/u on nodules, not on meds, no symptoms GLAND SIZE: Right Lobe: 4.5 x 1.9 x 1.7 cm Overall Parenchyma: heterogenous Left Lobe: 7.7 x 2.4 x 4.2 cm Overall Parenchyma: heterogeneous Isthmus Thickness: 0.5 cm NODULES RIGHT: # of nodules measured on right: 2 1. 1.8 X 1.4 x 1.2 cm, mid , solid or almost completely solid, isoechoic nodule, which is wider caitlin n tall, with smooth margins, without echogenic foci. TR 3 Prior size: 2.0 x 1.2 x 1.5 cm 2. 1.3 X 1.2 x 1.0 cm, lower , solid or almost completely solid, isoechoic nodule, which is wider t peguero tall, with smooth margins, without echogenic foci. Prior size: 1.0 x 0.9 x 1.0 cm LEFT: # of nodules measured on left: 2 1. 1.8 X 1.6 x 1.2 cm, upper, solid or almost completely solid, hypoechoic nodule, which is wider t peguero tall, with smooth margins, with echogenic foci. TR 4 Prior size: 1.6 x 1.1 x 1.5 cm 2. 2.3 X 1.8 x 2.1 cm, lower , solid or almost completely solid, hypoechoic nodule, which is wider than tall, with smooth margins, without echogenic foci. Prior size: not seen on previous US, but seen on prior 2019 CT ISTHMUS: # of nodules measured in the isthmus: 0 Bilateral neck scanned, no evidence of lymphadenopathy. IMPRESSION: 1. Moderately suspicious nodule left lobe thyroid. Biopsy is recommended. 2017 ACR TI-RADS LEVEL: TR-RADS 4 - Moderately Suspicious: Follow if > 1 cm, FNA if > 1.5 cm *Highest TI-RADS level nodule reported
== END | disposition home or self-care (01) ==
LOC: RADUSWWP 14:07
PROVIDERS: ATTEND Internal Medicine Critical Care Medicine
DX: D86.85 Sarcoid myocarditis (principal); E04.2 Nontoxic multinodular goiter
CPT/HCPCS: 76536

== ENCOUNTER → 2021-11-05 | Outpatient (CLI) | payer MEDICARE ==
[2021-11-05 11:00] LABS: African American GFR (CKD) 60.6 (60.0-200.0); Blood Urea Nitrogen 15.7 mg/dL (9.0-27.0); Non-African American GFR(CKD) 52.3 (60.0-200.0); Uric Acid 3.9 mg/dL (3.7-8.7)
== END | disposition home or self-care (01) ==
LOC: LABWHC1 07:46
PROVIDERS: ATTEND Nurse Practitioner Family
DX: M10.9 Gout, unspecified (principal)
CPT/HCPCS: 36415; 82565; 84450; 84460; 84520; 84550

== ENCOUNTER 2021-11-25 08:49 | Day surgery (SDC) | payer MEDICARE ==
[2021-11-25] MEDS ORDERED: ALPRAZolam 0.25 MG TAB PO STA (09:28)
[2021-11-25 11:18] VITALS: BP 137/45; RESP 18
--- NOTE | 2021-11-25 11:19 | US ---
EXAMINATION TYPE: US FNA thyroid each add lesion, US FNA thyroid first lesion DATE OF EXAM: 11/25/2021 COMPARISON: Ultrasound 08/21/2021 HISTORY: Thyroid nodules bilaterally. Maximal barrier technique was utilized. After informed consent, skin overlying the left lobe thyroid nodule at the upper pole was localized with ultrasound and the overlying skin prepped and draped. Ul trasound was utilized using sterile technique. Lidocaine was used for local anesthesia. Five passes with a 25-gauge needle were made into the nodule and aspirated specimen was submitted to cytology. Using similar technique, ultrasound guidance was utilized at the level of the upper pole of the right lobe of the thyroid, the underlying nodule was localized with ultrasound and the overlying skin prep ped and draped. Lidocaine used for local anesthesia. 5 passes with a 25-gauge needle. Aspirated speci men submitted to cytology. Following the procedure hemostasis achieved. No immediate complication. The patient discharged in stable condition. IMPRESSION: STATUS POST ULTRASOUND GUIDED FINE NEEDLE ASPIRATION OF BILATERAL THYROID NODULES, PATHOL OGY IS PENDING. THIS PROCEDURE WAS PERFORMED BY THE UNDERSIGNED.
[2021-11-25 11:22] VITALS: PULSE 64; TEMP 98
== END 2021-11-25 11:23 | disposition home or self-care (01) ==
LOC: RADPROMAIN 08:49
PROVIDERS: ATTEND Internal Medicine Endocrinology, Diabetes & Metabolism
DX: E04.2 Nontoxic multinodular goiter (principal)
CPT/HCPCS: 10005; 10006; 88173; 88305

== ENCOUNTER → 2022-05-13 | Outpatient (CLI) | payer MEDICARE ==
--- NOTE | 2022-05-13 16:00 | US ---
EXAMINATION TYPE: US thyroid st tissue head/neck DATE OF EXAM: 05/13/2022 COMPARISON: 08/21/2021 CLINICAL HISTORY: 76-year-old male E04.1 NONTOXIC SINGLE THYROID NODULE. Thyroid nodules TECHNIQUE: Multiple sonographic images of the thyroid gland are obtained. FINDINGS: GLAND SIZE: Right Lobe: 6.5 x 2.6 x 2.4 cm Overall Parenchyma: heterogenous Left Lobe: 7.3 x 4.0 x 2.8 cm Overall Parenchyma: heterogeneous Isthmus Thickness: 0.5 cm NODULES RIGHT: # of nodules measured on right: 2 1. 2.1 X 1.3 x 1.5 cm, , solid or almost completely solid, hypoechoic TR4 nodule, wider than tall, with smooth margins, without echogenic foci. Prior size: 1.8 x 1.4 x 1.2 cm 2. 1.2 X 1.0 x 1.3 cm, lower , mixed cystic and solid, isoechoic nodule, which is wider than tall, with smooth margins, without echogenic foci. Prior size: 1.3 x 1.2 x 1.0 cm LEFT: # of nodules measured on left: 1 1. 1.8 X 1.1 x 1.5 cm, upper , solid or almost completely solid, isoechoic nodule, which is wider t peguero tall, with smooth margins, with echogenic foci. Prior size: 1.8 x 1.6 x 1.2 cm ISTHMUS: # of nodules measured in the isthmus: 0 Bilateral neck scanned, no evidence of lymphadenopathy. IMPRESSION: Correlate for multinodular goiter. A dominant TR4 solid nodule on the right is slightly larger at 2.1 x 1.5 cm (versus 1.8 x 1.4 cm, previously). Other nodules are largely unchanged.
== END | disposition home or self-care (01) ==
LOC: RADUSWWP 14:08
PROVIDERS: ATTEND Internal Medicine Endocrinology, Diabetes & Metabolism
DX: E04.2 Nontoxic multinodular goiter (principal)
CPT/HCPCS: 76536

== ENCOUNTER → 2022-10-27 | Outpatient (CLI) | payer MEDICARE ==
[2022-10-27 20:39] LABS: T4, Free (Free Thyroxine) 1.45 ng/dL (0.80-1.80)
== END | disposition home or self-care (01) ==
LOC: RADXRMAIN 13:23
PROVIDERS: ATTEND Internal Medicine Endocrinology, Diabetes & Metabolism
DX: E04.2 Nontoxic multinodular goiter (principal)
CPT/HCPCS: 84439; 84443

== ENCOUNTER → 2022-11-16 | Outpatient (CLI) | payer MEDICARE ==
--- NOTE | 2022-11-17 07:30 | US ---
EXAMINATION TYPE: US kidneys/renal and bladder DATE OF EXAM: 11/16/2022 COMPARISON: CT 2019. CLINICAL INDICATION: Male, 77 years old with history of N18.32 CHRONIC KIDNEY DI SEASE, STAGE 3B; EXAM MEASUREMENTS: Right Kidney: 11.8 x 5.8 x 5.5 cm Left Kidney: Surgically absent Right Kidney: multiple stones, largest = 0.7cm cortical thinning with maintained cortical medullary d ifferentiation. Left Kidney: Surgically absent Bladder: overly extended, possible septated bladder extending into LLQ compatible with bladder divert iculum seen on prior CT. Bilateral Jets seen: no *incidental finding: prostate = 5.3cm IMPRESSION: 1. No evidence for acute process. 2. Prostatomegaly with median lobe hypertrophy changes. Correlate with serum PSA. 3. Right obstructing calculus.
== END | disposition home or self-care (01) ==
LOC: RADUSWWP 16:01
PROVIDERS: ATTEND Internal Medicine
DX: N18.32 Chronic kidney disease, stage 3b (principal); N40.0 Benign prostatic hyperplasia without lower urinary tract symptoms; N20.0 Calculus of kidney
CPT/HCPCS: 76770

== ENCOUNTER → 2022-11-19 | Outpatient (CLI) | payer MEDICARE ==
--- NOTE | 2022-11-19 14:01 | US ---
EXAMINATION TYPE: US thyroid st tissue head/neck DATE OF EXAM: 11/19/2022 COMPARISON: Prior thyroid ultrasound May 13, 2022 CLINICAL INDICATION: Male, 77 years old with history of E04.2 NONTOXIC MULTINODULAR GOITER; thyroid n odules GLAND SIZE: Right Lobe: 5.4 x 2.9 x 2.2 cm Overall Parenchyma: heterogenous Left Lobe: 6.9 x 4.2 x 2.8 cm Overall Parenchyma: heterogenous Isthmus Thickness: 0.4 cm NODULES RIGHT: # of nodules measured on right: 2 1. 2.2 X 1.2 x 1.6 cm, mid lateral, solid or almost completely solid, hypoechoic nodule, which is w ider than tall, with smooth margins, without echogenic foci. Prior size: 2.1 x 1.3 x 1.5 cm 2. 1.3 X 1.1 x 1.5 cm, lower medial, solid or almost completely solid, hypoechoic nodule, which is wider than tall, with smooth margins, without echogenic foci. Prior size: 1.2 x 1.0 x 1.3 cm LEFT: # of nodules measured on left: 1 1. 1.7 X 1.2 x 1.4 cm, upper lateral, solid or almost completely solid, hypoechoic nodule, which is wider than tall, with smooth margins, with echogenic foci. Prior size: 1.8 x 1.1 x 1.5 cm ISTHMUS: # of nodules measured in the isthmus: 0 Bilateral neck scanned, no evidence of lymphadenopathy. Heterogeneous enlarged thyroid with bilateral nodules redemonstrated as detailed above. IMPRESSION: No significant change from most recent ultrasound.
== END | disposition home or self-care (01) ==
LOC: RADUSWWP 12:52
PROVIDERS: ATTEND Internal Medicine Endocrinology, Diabetes & Metabolism
DX: E04.2 Nontoxic multinodular goiter (principal)
CPT/HCPCS: 76536

== ENCOUNTER → 2023-04-06 | Outpatient (CLI) | payer MEDICARE ==
[2023-04-06 17:56] LABS: T4, Free (Free Thyroxine) 1.37 ng/dL (0.80-1.80); VLDL Calculation 10.94 mg/dL (5.00-40.00)
[2023-04-06 18:17] LABS: ALT 15 U/L (10-49); AST 21 U/L (14-35); Albumin/Globulin Ratio 2.11 Ratio (1.60-3.17); Alkaline Phosphatase 83 U/L (41-126); BUN/Creat Ratio 13.73 Ratio (12.00-20.00); Blood Urea Nitrogen 20.6 mg/dL (9.0-27.0); Calcium 9.3 mg/dL (8.7-10.3); Carbon Dioxide 27.6 mmol/L (21.6-31.8); Chloride 109 mmol/L (96-109); Chol/HDL Ratio 2.33 Ratio; Globulin 1.9 g/dL (1.6-3.3); Glucose 89 mg/dL (70-110); LDL Cholesterol,Calculated 63.4 mg/dL (0.0-131.0); Potassium 4.9 mmol/L (3.5-5.5); Sodium 148 mmol/L (135-145); Total Bilirubin 0.7 mg/dL (0.3-1.2); Total Protein 5.9 g/dL (6.2-8.2)
== END | disposition home or self-care (01) ==
LOC: LABWHC1 08:02
PROVIDERS: ATTEND Internal Medicine Clinical Cardiac Electrophysiology
DX: I42.8 Other cardiomyopathies (principal); I47.29 Other ventricular tachycardia
CPT/HCPCS: 36415; 80053; 80061; 84439; 84443; 84481

== ENCOUNTER 2024-09-03 09:16 | Emergency (ER) | payer MEDICARE ==
[2024-09-03 09:21] VITALS: TEMP 97.6
[2024-09-03 09:43] LABS: Basophils # (A) 0.05 10*3/uL (0.00-0.10); Basophils % (A) 0.9 %; Eosinophils # (A) 0.14 10*3/uL (0.04-0.35); Eosinophils % (A) 2.5 %; HCT 46.7 % (39.6-50.0); Lymphocytes # (A) 1.06 10*3/uL (0.90-5.00); Lymphocytes % (A) 18.9 %; MCHC 34.3 g/dL (32.0-37.0); MCV 99.2 fL (80.0-97.0); Mean Platelet Volume 10.6 fL (9.5-12.2); Monocytes # (A) 0.55 10*3/uL (0.20-1.00); Monocytes % (A) 9.8 %; Neutrophils % (A) 67.5 %; Platelet Count 171 10*3/uL (140-440); RBC 4.71 10*6/uL (4.40-5.60); RDW 13.3 % (11.5-14.5); WBC 5.62 10*3/uL (4.50-10.00)
[2024-09-03] MEDS: SODIUM CHLORIDE 0.9% 1,000 ML IV ONE (09:47)
[2024-09-03 09:48] LABS: Appearance,Urine Cloudy (Clear); Bilirubin,Urine Negative (Negative); Blood,Urine Large (Negative); Color,Urine Light Red; Glucose,Urine (UA) 3+ (Negative); Ketones,Urine Negative (Negative); Leukocyte Esterase,Urine Trace (Negative); Nitrite,Urine Negative (Negative); PH, Urine 5.5 (5.0-8.0); Protein,Urine 1+ (Negative); RBC,Urine >182 /hpf (0-5); Specific Gravity,Urine 1.011 (1.001-1.035); Urobilinogen,Urine <2.0 mg/dL (<2.0); WBC,Urine 63 /hpf (0-5)
[2024-09-03 10:08] LABS: ALT 16 U/L (4-49); AST 23 U/L (17-59); African American GFR (CKD) 60 (>60 ml/min/1.73 sqM); Albumin 3.7 g/dL (3.5-5.0); Alkaline Phosphatase 68 U/L (38-126); Amylase 46 U/L (30-110); Anion Gap 8 mmol/L; Blood Urea Nitrogen 24 mg/dL (9-20); Calcium 9.2 mg/dL (8.4-10.2); Carbon Dioxide 25 mmol/L (22-30); Chloride 108 mmol/L (98-107); Glucose 101 mg/dL (74-99); Lipase 79 U/L (23-300); Non-African American GFR(CKD) 52 (>60 ml/min/1.73 sqM); Potassium 4.5 mmol/L (3.5-5.1); Sodium 141 mmol/L (137-145); Total Bilirubin 0.8 mg/dL (0.2-1.3); Total Protein 6.1 g/dL (6.3-8.2)
--- NOTE | 2024-09-03 10:24 | CT ---
EXAMINATION TYPE: CT abdomen pelvis wo con DATE OF EXAM: 09/03/2024 9:50 AM COMPARISON: 03/09/2019 CLINICAL INDICATION: Male, 79 years old with history of Hematuria right flank pain; TECHNIQUE: CT of the abdomen and pelvis without contrast. Coronal and sagittal reconstructions perfor med. Contrast used: None Oral contrast used: without Oral Contrast CT DLP: 725.2 mGycm, Automated exposure control for dose reduction was used. FINDINGS: LOWER CHEST: Pacer leads noted. Heart upper limits of normal in size. Mild basilar bronchiolectasis. Some groundglass change is similar to slightly increased from 2019. This could reflect interstitial p neumonitis such as DIP or NSIP or some progressive interstitial scarring. ABDOMEN LIVER: Redemonstrated underlying hepatic cysts measuring up to 3.3 cm. GALLBLADDER AND BILE DUCTS: Punctate 3 mm gallstone. No abnormal gallbladder distention. PANCREAS: Unremarkable. SPLEEN: Unremarkable. ADRENAL GLANDS: Minimal 7 mm nodular thickening right adrenal gland is unchanged. KIDNEYS AND URETERS: Left kidney surgically absent. Right kidney shows approximately 13 nonobstructiv e stones, largest measuring 8 mm. There is mild fullness of the right renal collecting system. Relati ve caliber change at the UPJ, reference axial image 44. Right ureter appears relatively normal calibe r. Surgical clips left retroperitoneum relating to prior left nephrectomy. No abnormal soft tissue de nsity seen here. PELVIS BLADDER: Massively enlarged extending above the umbilicus measuring up to 17.4 cm craniocaudal. A lar ge left lateral bladder wall diverticulum has also increased in size now 13.8 cm versus 8.5 cm, previ ously. REPRODUCTIVE: Prostate gland lobulated and enlarged at 6.0 cm wide. Scattered prosthetic calcificatio ns. Tissue compressing onto the base of the bladder. High riding left testicle just entering the ingu inal canal. ABDOMEN & PELVIS STOMACH AND BOWEL: Tiny hiatal hernia. No evidence of bowel obstruction. Mild stool burden. Generaliz ed colonic diverticulosis. Normal appendix. No pericolonic inflammatory change. PERITONEUM/RETROPERITONEUM: No evidence of pneumoperitoneum or free fluid. VASCULATURE: Scattered mild atherosclerotic calcifications. MUSCULOSKELETAL: There is hypertrophic facet arthropathy. Baastrup's disease lower lumbar spine. Dege nerative grade 1 anterolisthesis of L4-L5. Mild degenerative change in both hips. LYMPH NODES: Scattered numerous prominent but nonenlarged lymph nodes along the left side of the abdo mariam mesentery measuring up to 6 mm. No progressive adenopathy compared to 2019. SOFT TISSUE/ABDOMINAL WALL: Redemonstrated midline epigastric ventral abdominal wall hernia containin g omental fat. Currently measuring 4.6 cm wide extending through a 9 mm abdominal wall defect. Hernia previously measured 2.7 cm wide. However, the previous fat stranding and hazy inflammation in this a reza has resolved. IMPRESSION: 1. Prostatomegaly at 6.0 cm wide. Correlate with PSA values. There is severe bladder distention with the dome of the bladder distended to above the umbilicus. A large left lateral bladder wall divertic ulum is also increased in size now 13.8 cm versus 8.5 cm back in 2019. Consider bladder outlet obstru ction. 2. Mild fullness of the right renal collecting system may be due to the severe bladder distention. Gi po slight caliber change at the UPJ, a relative stricture at the UPJ is difficult to exclude. 3. Right-sided nephrolithiasis with stones measuring up to 8 mm. No ureteral stone seen. 4. Status post left nephrectomy. 5. Tiny hiatal hernia. Small to moderate-sized ventral epigastric fat-containing abdominal wall herni a redemonstrated. The inflammation seen in 2019 has resolved. Generalized colonic diverticulosis. [facility], , 09/03/2024 10:21 AM
--- NOTE | 2024-09-03 10:55 | ED ---
Back Pain HPI - General Chief Complaint: Back Pain/Injury Stated Complaint: Urogenital Time Seen by Provider: 09/03/24 09:22 Source: patient, RN notes reviewed Mode of arrival: ambulatory Limitations: no limitations - History of Present Illness Initial Comments: 79-year-old male presents emergency department chief complaint of hematuria, right flank pain. Patient states that he knows of the last couple days. Patient states that he only has his right kidney as prior left was removed for what that was cancer but ended up not being. Patient states he has no dysuria he states he does get some urine out and seems to go for more frequent. No chest pain no shortness of breath no other complaints. - Related Data Home Medications Medication Instructions Recorded Confirmed Simvastatin 10 mg PO HS 07/21/15 11/16/21 allopurinoL [Zyloprim] 350 mg PO HS 07/11/18 11/16/21 Previous Rx's Medication Instructions Recorded Apixaban [Eliquis] 5 mg PO BID #0 10/17/16 Nitroglycerin Sl Tabs [Nitrostat] 0.4 mg SUBLINGUAL Q5M PRN #21 tab 03/01/17 Metoprolol Succinate (ER) [Toprol 100 mg PO DAILY #90 tab 06/21/19 XL] Cephalexin [Keflex] 500 mg PO Q8HR #21 cap 09/03/24 Allergies Allergy/AdvReac Type Severity Reaction Status Date / Time No Known Allergies Allergy Verified 09/03/24 12:08 Review of Systems ROS Statement: Those systems with pertinent positive or pertinent negative responses have been documented in the HPI. ROS Other: All systems not noted in ROS Statement are negative. Past Medical History Past Medical History: Atrial Fibrillation, Cancer, Hyperlipidemia, Hypertension, Osteoarthritis (OA), Sleep Apnea/CPAP/BIPAP Additional Past Medical History / Comment(s): Gout, Hx of skin cancer, C-Pap machine., has only 1 kidney (Hx of left nephrectomy -non cancerous tumor)., states positive cologuaDr Aimee whitaker noticed enlarged thyroid and patient had U/S done . History of Any Multi-Drug Resistant Organisms: None Reported Past Surgical History: Ablation, Cardiac Ablation, Hernia Repair, Tonsillectomy Additional Past Surgical History / Comment(s): lt nephrectomy r/t noncancerous tumor, cataracts, cardiac ablation x3, AICD placement 06/12/19 Past Anesthesia/Blood Transfusion Reactions: No Reported Reaction Past Psychological History: No Psychological Hx Reported Smoking Status: Never smoker Past Alcohol Use History: Occasional Past Drug Use History: None Reported - Past Family History Daughter(s) Family Medical History: Cancer Additional Family Medical History / Comment(s): melanoma General Exam Limitations: no limitations General appearance: alert, in no apparent distress Head exam: Present: atraumatic, normocephalic, normal inspection Respiratory exam: Present: normal lung sounds bilaterally. Absent: respiratory distress, wheezes, rales, rhonchi, stridor Cardiovascular Exam: Present: regular rate, normal rhythm, normal heart sounds. Absent: systolic murmur, diastolic murmur, rubs, gallop, clicks GI/Abdominal exam: Present: soft, tenderness, normal bowel sounds. Absent: distended, guarding, rebound, rigid Back exam: Present: CVA tenderness (R). Absent: CVA tenderness (L) Neurological exam: Present: alert Course Vital Signs 09/03/24 09/03/24 09:18 12:07 Temperature 97.6 F Pulse Rate 63 66 Respiratory 16 18 Rate Blood Pressure 152/98 130/79 O2 Sat by Pulse 98 95 Oximetry Medical Decision Making - Medical Decision Making Was pt. sent in by a medical professional or institution (, PA, [employer] CONSOLE OPERATOR TRACK, urgent care, hospital, or retirement...) When possible be specific @ -No Did you speak to anyone other than the patient for history (EMS, parent, family, police, friend...)? What history was obtained from this source @ -No Did you review nursing and triage notes (agree or disagree)? Why? @ -I reviewed and agree with nursing and triage notes Were old charts reviewed (outside hosp., previous admission, EMS record, old EKG, old radiological studies, urgent care reports/EKG's, retirement records)? Report findings @ -No old charts were reviewed Differential Diagnosis (chest pain, altered mental status, abdominal pain women, abdominal pain men, vaginal bleeding, weakness, fever, dyspnea, syncope, headache, dizziness, GI bleed, back pain, seizure, CVA, palpatations, mental health, musculoskeletal)? @ -Differential Abdominal Pain Men: Appendicitis, cholecystitis, diverticulosis, ischemic bowel, pancreatitis, hepatitis, UTI, gastroenteritis, AAA, incarcerated hernia, bowel obstruction, constipation, inflammatory bowel, hepatitis, peptic ulcer disease, splenic infarction, perforated viscus, testicular torsion, this is not meant to be an all-inclusive list EKG interpreted by me (3pts min.). @ -None X-rays interpreted by me (1pt min.). @ -None done CT interpreted by me (1pt min.). @ -CT abdomen pelvis showing evidence of enlarged prostate, distended bladder with some enlargement of the right ureter U/S interpreted by me (1pt. min.). @ -None done What testing was considered but not performed or refused? (CT, X-rays, U/S, labs)? Why? @ -None What meds were considered but not given or refused? Why? @ -None Did you discuss the management of the patient with other professionals (professionals i.e. , PA, [employer]LE OPERATOR [employer], lab, RT, psych nurse, social media senior associate, printed circuit board pcb draftsman, teacher, sheriffs officer, therapeutic case manager)? Give summary @ -No Was smoking cessation discussed for >3mins.? @ -No Was critical care preformed (if so, how long)? @ -No Were there social determinants of health that impacted care today? How? (Homelessness, low income, unemployed, alcoholism, drug addiction, transportation, low edu. Level, literacy, decrease access to med. care, correction, rehab)? @ -No Was there de-escalation of care discussed even if they declined (Discuss DNR or withdrawal of care, Hospice)? DNR status @ -No What co-morbidities impacted this encounter? (DM, HTN, Smoking, COPD, CAD, Cancer, CVA, ARF, Chemo, Hep., AIDS, mental health diagnosis, sleep apnea, morb id obesity)? @ -None Was patient admitted / discharged? Hospital course, mention meds given and rout e, prescriptions, significant lab abnormalities, going to OR and other pertinent info. @ -Discharged patient presented for hematuria concern for kidney stone CT showed dilated bladder Ac catheter was placed 2700 mL of urine states he has feels greatly improved he does have noted enlarged prostate and will have urology follow-up patient was placed on antibiotics given catheter and some bacteria noted in urine. Undiagnosed new problem with uncertain prognosis? @ -No Drug Therapy requiring intensive monitoring for toxicity (Heparin, Nitro, Insulin, Cardizem)? @ -No Were any procedures done? @ -No Diagnosis/symptom? @ -Hematuria, urinary retention Acute, or Chronic, or Acute on Chronic? @ -Acute Uncomplicated (without systemic symptoms) or Complicated (systemic symptoms)? @ -Complicated Side effects of treatment? @ -No Exacerbation, Progression, or Severe Exacerbation? @ -No Poses a threat to life or bodily function? How? (Chest pain, USA, ND, pneumonia, PE, COPD, DKA, ARF, appy, cholecystitis, CVA, Diverticulitis, Homicidal, Suicidal, threat to staff... and all critical care pts) @ -No - Lab Data Result diagrams: 09/03/24 09:36 09/03/24 09:36 Lab Results 09/03/24 09/03/24 09/03/24 Range/Units 09:36 09:36 09:36 WBC 5.62 (4.50-10.00) 10*3/uL RBC 4.71 (4.40-5.60) 10*6/uL Hgb 16.0 (13.0-17.0) g/dL Hct 46.7 (39.6-50.0) % MCV 99.2 H (80.0-97.0) fL MCH 34.0 H (27.0-32.0) pg MCHC 34.3 (32.0-37.0) g/dL Plt Count 171 (140-440) 10*3/uL MPV 10.6 (9.5-12.2) fL Immature Gran % (Auto) 0.4 % Neutrophils % 67.5 % Lymphocytes % 18.9 % Monocytes % 9.8 % Eosinophils % 2.5 % Basophils % 0.9 % Immature Gran # 0.02 (0.00-0.04) 10*3/uL Neutrophils # 3.80 (1.80-7.70) 10*3/uL Lymphocytes # 1.06 (0.90-5.00) 10*3/uL Monocytes # 0.55 (0.20-1.00) 10*3/uL Eosinophils # 0.14 (0.04-0.35) 10*3/uL Basophils # 0.05 (0.00-0.10) 10*3/uL Sodium 141 (137-145) mmol/L Potassium 4.5 (3.5-5.1) mmol/L Chloride 108 H (98-107) mmol/L Carbon Dioxide 25 (22-30) mmol/L Anion Gap 8 mmol/L BUN 24 H (9-20) mg/dL Creatinine 1.29 H (0.66-1.25) mg/dL Est GFR (CKD-EPI)AfAm 60 (>60 ml/min/1.73 sqM) Est GFR (CKD-EPI)NonAf 52 (>60 ml/min/1.73 sqM) Glucose 101 H (74-99) mg/dL Calcium 9.2 (8.4-10.2) mg/dL Total Bilirubin 0.8 (0.2-1.3) mg/dL AST 23 (17-59) U/L ALT 16 (4-49) U/L Alkaline Phosphatase 68 (38-126) U/L Total Protein 6.1 L (6.3-8.2) g/dL Albumin 3.7 (3.5-5.0) g/dL Amylase 46 (30-110) U/L Lipase 79 (23-300) U/L Urine Color Light Red Urine Appearance Cloudy (Clear) Urine pH 5.5 (5.0-8.0) Ur Specific [place] 1.011 (1.001-1.035) Urine Protein 1+ H (Negative) Urine Glucose (UA) 3+ H (Negative) Urine Ketones Negative (Negative) Urine Blood Large H (Negative) Urine Nitrite Negative (Negative) Urine Bilirubin Negative (Negative) Urine Urobilinogen <2.0 (<2.0) mg/dL Ur Leukocyte Esterase Trace H (Negative) Urine RBC >182 H (0-5) /hpf Urine WBC 63 H (0-5) /hpf Disposition Clinical Impression: Hematuria, Urinary retention Disposition: HOME SELF-CARE Condition: Stable Instructions (If sedation given, give patient instructions): Hematuria (ED), Urinary Retention in Men (ED) Additional Instructions: Please return to the Emergency Department if symptoms worsen or any other concerns. Prescriptions: Cephalexin [Keflex] 500 mg PO Q8HR #21 cap Is patient prescribed a controlled substance at d/c from ED?: No Referrals: Ina Murrell MD [Primary Care Provider] - 1-2 days Dwight Richardson MD [STAFF PHYSICIAN] - 1-2 days Time of Disposition: 12:29
[2024-09-03 12:08] VITALS: BP 130/79; PULSE 66; RESP 18
== END 2024-09-03 12:47 | disposition home or self-care (01) ==
LOC: EC 09:16
DX: N20.0 Calculus of kidney (principal)
CPT/HCPCS: 36415; 51702; 51798; 74176; 80053; 81001; 82150; 83690; 85025; 87086; 96360; 99284

== ENCOUNTER → 2024-10-03 | Outpatient (CLI) | payer MEDICARE ==
[2024-10-03 14:51] LABS: Basophils # (A) 0.06 X 10*3/uL (0.00-0.10); Basophils % (A) 0.8 %; Eosinophils # (A) 0.24 X 10*3/uL (0.04-0.35); Eosinophils % (A) 3.1 %; HCT 50.6 % (39.6-50.0); HGB 16.3 g/dL (13.0-17.0); Lymphocytes % (A) 12.7 %; MCH 33.3 pg (27.0-32.0); MCHC 32.2 g/dL (32.0-37.0); MCV 103.3 FL (80.0-97.0); Mean Platelet Volume 10.8 FL (9.5-12.2); Monocytes # (A) 0.62 X 10*3/uL (0.20-1.00); Monocytes % (A) 7.9 %; NRBC Per 100 WBC 0 X 10*3/uL (0.00-0.01); Neutrophils # (A) 5.91 X 10*3/uL (1.80-7.70); Neutrophils % (A) 75.1 %; Platelet Count 203 X 10*3/uL (140-440); RDW 13.9 % (11.5-14.5); WBC 7.86 X 10*3/uL (4.50-10.00)
[2024-10-03 15:27] LABS: Blood Urea Nitrogen 23.4 mg/dL (9.0-27.0); Calcium 9.2 mg/dL (8.7-10.3); Carbon Dioxide 26.4 mmol/L (21.6-31.8); Chloride 109 mmol/L (96-109); Glucose 106 mg/dL (70-110); Potassium 4.9 mmol/L (3.5-5.5); Sodium 146 mmol/L (135-145)
[2024-10-03 19:28] LABS: Appearance,Urine Clear (Clear); Bilirubin,Urine Negative (Negative); Blood,Urine Small (Negative); Color,Urine Yellow (Yellow); Ketones,Urine Negative (Negative); Nitrite,Urine Negative (Negative); PH, Urine 5.5; Specific Gravity,Urine 1.008 (1.001-1.030); Urobilinogen,Urine 0.2 E.U./DL
[2024-10-03 19:51] LABS: Bacteria,Urine 4+ (None Seen)
== END | disposition home or self-care (01) ==
LOC: LABWHC1 08:24
PROVIDERS: ATTEND Urology
DX: Z01.818 Encounter for other preprocedural examination (principal); N40.1 Benign prostatic hyperplasia with lower urinary tract symptoms; I44.30 Unspecified atrioventricular block; I44.7 Left bundle-branch block, unspecified; I51.7 Cardiomegaly; R94.31 Abnormal electrocardiogram [ECG] [EKG]
CPT/HCPCS: 36415; 80048; 81001; 85025; 86850; 86900; 86901; 87086; 93005